=== PATIENT | female | born 1960 | race Caucasian/White ===

== ENCOUNTER 2019-09-07 06:09 | Outpatient (RCR) | payer MEDICAID, SELFPAY | END 2019-09-19 00:01 | LOC: ONCMED 06:09 | PROVIDERS: Family Provider Physician Assistant Medical; Visit Provider Internal Medicine Medical Oncology | DX: C92.11 Chronic myeloid leukemia, BCR/ABL-positive, in remission (principal); Z23 Encounter for immunization; D51.8 Other vitamin B12 deficiency anemias ==

== ENCOUNTER 2019-10-05 06:56 | Outpatient (RCR) | payer MEDICAID, SELFPAY ==
[2019-10-05] MEDS: pantoprazole 40 mg SDV IV (14:08)
[2019-10-05] MEDS: cyanocobalamin 1,000 mcg/mL SDV 1000 MCG SUBCUT (14:10)
[2019-10-05] MEDS: sodium chloride 0.9% 1,000 ML 999 ML IV (14:56)
== END 2019-10-20 23:59 | disposition home or self-care (01) ==
LOC: ONCMED 06:56
PROVIDERS: Family Provider Physician Assistant Medical; PCP Physician Assistant Medical; Visit Provider Internal Medicine Medical Oncology
DX: C92.11 Chronic myeloid leukemia, BCR/ABL-positive, in remission (principal); E86.0 Dehydration; K21.9 Gastro-esophageal reflux disease without esophagitis; R11.0 Nausea
CPT/HCPCS: 96361; 96365; 96367; 96372; 96375; C9113; J1100; J2550; J3420; J7030

== ENCOUNTER 2019-11-02 06:05 | Outpatient (RCR) | payer MEDICAID, SELFPAY ==
[2019-11-02] MEDS: sodium chloride 0.9% 1,000 ML 999 ML IV (08:57)
[2019-11-02] MEDS: pantoprazole 40 mg SDV IV (08:58)
[2019-11-02] MEDS: cyanocobalamin 1,000 mcg/mL SDV 1000 MCG SUBCUT (09:01)
[2019-11-02 09:22] LABS: Basophils % 0.5 %; Eosinophils # 0.1 10^3/uL (0.0-0.8); Eosinophils % 2.6 %; Hematocrit 35.7 % (37.0-47.0); Hemoglobin 11.7 g/dL (11.5-15.3); Lymphocytes # 1.2 10^3/uL (0.8-4.8); Lymphocytes % 28.9 %; Mean Corpuscular HGB Conc 32.8 g/dL (30.0-36.0); Mean Corpuscular Hemoglobin 30.3 pg (28.0-34.0); Mean Corpuscular Volume 92.5 fL (81-99); Mean Platelet Volume 9.8 fL (7.4-10.4); Monocytes # 0.3 10^3/uL (0.2-0.9); Monocytes % 6.2 %; Neutrophils # 2.6 10^3/uL (1.8-7.7); Neutrophils % 61.6 %; Nucleated Red Blood Cells % 0 %; Platelet Count 175 10^3/cmm (130-400); Red Blood Count 3.86 10^6/uL (4.1-5.3); Red Cell Distribution Width 12.4 % (12.1-15.1); White Blood Count 4.2 10^3/uL (4.0-10.0)
[2019-11-02 09:36] LABS: Alanine Aminotransferase 8 U/L (0-33); Albumin Level 4.3 g/dL (3.5-5.2); Alkaline Phosphatase 56 IU/L (35-105); Anion Gap 12.9 (5-19); Aspartate Amino Transferase 17 U/L (0-32); Blood Urea Nitrogen 9 mg/dL (6-20); Calcium 9.4 mg/dL (8.5-10.5); Carbon Dioxide 28 mmol/L (22-29); Chloride 104 mmol/L (98-107); Globulin 2.3 g/dL (1.3-4.6); Glomerular Filtration Rate 85.6 mL/min (90-130); Glucose 87 mg/dL (65-115); Lactate Dehydrogenase 140 U/L (135-214); Potassium 3.9 mmol/L (3.5-5.1); Sodium 141 mmol/L (136-145); Total Bilirubin 0.2 mg/dL (0.15-1.2); Total Protein 6.6 g/dL (6.6-8.7)
--- NOTE | 2019-11-02 21:07 | ONC FU_ITS ---
Dr. Gray Patient Follow-Up Note Patient: Alysa Acosta Unit #: [id number]: 1960 Dicatated By: Valente Gray M.D.Date of Visit:Nov 02, 2019 Onc Med Follow-up/Prog Note Chief Complaint: Chronic myeloid leukemia. History of Present Illness: This is a 59 year-old woman with [place] chromosome positive chronic myeloid leukemia. The leukemia was initially diagnosed in February of 2004. She had a good response to treatment with imatinib, but she did have documented relapse by bone marrow biopsy in October of 2008. She had poor tolerance for subsequent treatment with both dasatinib and nilotinib. Her repeat bone marrow aspiration/biopsy in October 2010 showed 100% cellularity, and her chromosome analysis was positive for the 9;22 translocation in all cells examined. She then began treatment with ponatinib on a clinical trial through [facility]. She had a very good clinical response, and she did seem to tolerate it well. However, in April 2014 she underwent placement of Port-A-Cath venous access device, and the procedure was complicated by a small pneumothorax. Her evaluation at that time also included CT pulmonary angiogram. It showed a left lower lobe lateral distal segmental pulmonary embolus. At that point she was admitted to the hospital on observation. She started anticoagulation with Lovenox and she stopped the ponatinib. Her subsequent clinical course was complicated by an acute drop in her hemoglobin with associated hypotension. She did require a transfusion of packed red blood cells. She was found to have a heme positive stool, and she was taken off anticoagulation. She underwent upper GI endoscopy and colonoscopy in August 2014. The upper endoscopy did show multiple ulcers in the antrum. These were not bleeding. She had been taking 150 mg of ranitidine twice daily, and at that point she started taking Protonix. She had a repeat upper GI endoscopy on 12/04/14. The only finding was some mild nonerosive gastritis in the antrum. There was no bleeding noted. Subsequent to that procedure she did restart anticoagulation with apixaban at 5 mg twice a day, and following her office visit on 12/19/14 she also restarted ponatinib at 30 mg daily. During followup there was no documented progression of her leukemia. Her quantitative PCR for BCR/abl remained undetectable or detectable at a very low level. In March 2016 she had presented to the emergency room with abdominal pain and vomiting. CT abdomen/pelvis showed distended fluid-filled loop of bowel in the right lower quadrant suspicious for volvulus, closed-loop obstruction, adhesions, or internal hernia. She was admitted to the hospital, but managed conservatively, and she did get better clinically after she was given laxatives and had multiple bowel movements. She continued treatment with ponatinib. She had subsequently continued to have ongoing problems with nausea/vomiting. She has had associated emergency room visits on 08/19/2016, on 10/24/2016, and on 11/18/2016. Repeat CT abdomen/pelvis in October 2016 showed evidence of mild jejunitis. 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 I did review that study with the radiologist, and that finding had been present on numerous prior studies. As of her follow-up visit in November 2016 her BCR/abl remained undetectable. On 02/03/2017 she presented to the emergency room again with sharp pain in the left side of her chest which was worse with deep breathing. The pain did radiate through to the back. She also was having significant abdominal pain. CT pulmonary angiogram at that time showed no evidence of pulmonary embolism. 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 There was post stenotic dilatation noted. She underwent further evaluation for the celiac artery stenosis in [place], and she then underwent surgery at [facility] on 05/26/2017. She then continued treatment with ponatinib 30 mg daily and she continued anticoagulation with apixaban 5 mg twice a day. She has significant underlying medical problems including severe degenerative disease of the spine with chronic neck and back pain. The problem has been further aggravated by chronic, intractable migraine headaches. She also has a component of generalized pain which is felt to be consistent with fibromyalgia. She has chronic anxiety/depression. She also was found to have B12 deficiency, for which she has remained on B12 replacement. She does not smoke or drink alcohol. INTERIM HISTORY: As of her visit on 08/10/2019 her quantitative PCR for BCR/abl remained undetectable. She continued treatment with ponatinib 30 mg daily. She is seen for a scheduled visit. She has multiple complaints. Her energy is very low. She says she feels drained. She has not had much activity. ECOG score is 2. She says her appetite is not good and she has not been eating that much, but she has gained weight. She has not had fever. She has a lot of hot flashes and sweating. Her main complaint today is that she has been having severe bone pain in her thighs. The pain feels like someone trying to saw her bone in half, and it comes in episodes during the night. She says it can wake her up from a deep sleep. She says it is not like a charley horse. She also says that she can hardly walk when she first gets up in the morning. She also continues to have pain in her lower back and in her neck. Her headaches have not been as bad. She does not have any focal neurologic symptoms. She continues to have some acid reflux, and she has nausea/vomiting at least 2 or 3 times a week. She does tend to feel a lot better after her IV hydration. Medications: Acyclovir 1 (200 mg) Capsule Oral b.i.d., Caxjaulckh-VOGS-Yjqkcqrs 1 (50-325-40 mg) Tablet Oral four times a day, Diazepam 1 (5 mg) Tablet Oral at bedtime, Eliquis 1 (5 mg) Tablet Oral b.i.d., EQL Senna Laxative Tablet Oral t.i.d. PRN, Gabapentin (300 mg) Capsule Oral Take as Directed, HYDROmorphone HCl 1 Tablet (of 4 mg) Oral four times a day PRN, Iclusig 1 (15 mg) Tablet Oral daily, Levothyroxine Sodium 1 (50 mcg) Tablet Oral daily, Magnesium Oxide 1 (400 mg) Capsule Oral daily, Montelukast Sodium 1 (10 mg) Tablet Oral daily, Pantoprazole Sodium 1 (40 mg) Tablet, enteric coated Oral b.i.d., Potassium Chloride 1 (20 meq) Tablet, controlled release Oral b.i.d., Promethazine HCl 1 (25 mg) Tablet Oral four times a day, Requip 1 (1 mg) Tablet Oral b.i.d., Sucralfate 1 (1 G) Tablet Oral four times a day, Venlafaxine HCl 1 (150 mg) Tablet Oral daily Allergies: Codeine Sulfate, elavil, Latex Exam Gloves, Morphine Sulfate, Penicillin V Potassium, and ZyPREXA. Review of Systems: Constitutional - Her energy is low and she feels drained. She does not do much at home. Her appetite is good and her weight is up 10 pounds since her last visit. No fever or chills. She has hot flashes and sweating. ECOG score is 2, ENMT - She has sinus congestion/drainage. She has sores under her dentures. No sore throat or difficulty swallowing, Hematologic/Lymphatic - She bruises easily, Respiratory - No shortness of breath. No cough. No pleuritic pain or hemoptysis, Cardiovascular - She has sharp pains in the left side and center of her chest, mainly at night. No palpitations, Gastrointestinal - She has nausea and vomiting at least 2-3 times a week. She has acid reflux. She has had diarrhea the last 3 days. She has cut down on her stool softeners. No blood in the stool or black stools, Genitourinary (F) - No dysuria or hematuria. No urinary frequency. No urgency or incontinence, Musculoskeletal - She has pain in her lower back and she has been having episodes of severe bone pain in her thights at night. She can hardly walk when she first gets up in the morning. She also has pain in her neck, Integumentary - No skin complications, Neurologic - Her headaches are not as bad as they used to be. She gets dizzy and light-headed at times. No numbness/paresthesias or other focal neurologic symptoms, Psychiatric - She has anxiety and depression. She is having difficulty sleeping. Vital Signs: Performed on Nov 02, 2019 08:54 Height - 63.00 in Weight - 121.4 lbs (HIGH) BSA - 1.56 sq.m BMI - 21.51 Temperature - 98.1 F (LOW) Pulse - 64 /min Respiration - 16 /min BP - 108/75 mm(hg) O2 Sat - 98 % Pain - 10 Fatigue - 10 Physical Examination: Constitutional - She appears somewhat weak generally, but not acutely ill, Eyes - Sclerae nonicteric. Conjunctivae clear, ENMT - Her mouth is dry. There are no lesions noted in the oral cavity, Hematologic/Lymphatic - No cervical, clavicular, or axillary adenopathy, Respiratory - Lungs are clear with good air movement bilaterally, Cardiovascular - Heart rhythm is regular. There is no murmur, gallop, or rub noted, Abdomen - Soft. There is tenderness in the epigastric area. Liver and spleen are not enlarged. There is no abdominal mass or ascites noted. There is no inguinal adenopathy, Extremities - No edema, Neurologic - No focal neurologic deficits noted. Lab/Imaging: Test performed on Nov 02, 2019 08:56 LDH (Total) 140 U/L Sodium 141 mmol/L Potassium 3.9 mmol/L Chloride 104 mmol/L CO2 28 mmol/L Anion Gap 12.9 BUN 9 mg/dL Creatinine 0.7 mg/dL Cr Clearance (Est) 75.23 mL/min eGFR 85.6 mL/min Glucose 87 mg/dL Calcium 9.4 mg/dL Protein, Total 6.6 g/dL Albumin 4.3 g/dL Globulin 2.3 g/dL Bilirubin, Total 0.2 mg/dL ALT (SGPT) 8 U/L AST (SGOT) 17 U/L Alkaline Phosphatase 56 IU/L WBC 4.2 10 3/uL RBC 3.86 10 6/uL HGB 11.7 g/dL HCT 35.7 % MCV 92.5 fL MCH 30.3 pg MCHC 32.8 g/dL RDW 12.4 % Platelet Count 175 10 3/cmm MPV 9.8 fL Neutrophils 2.6 10 3/uL Lymphocytes 1.2 10 3/uL Monocytes 0.3 10 3/uL Eosinophils 0.1 10 3/uL Basophils 0.0 10 3/uL Neutrophil % 61.6 % Lymphocyte % 28.9 % Monocyte % 6.2 % Eosinophil % 2.6 % Basophils % 0.5 % Impression: 1. Patient has a [place] chromosome positive chronic myeloid leukemia initially diagnosed in February 2004. She had progressed following initial response to imatinib. She then failed or was intolerant to subsequent treatment with nilotinib and desatinib. 2. In December 2010 she began treatment with ponatinib on a clincal trial thru [facility]. She responded well, and her disease was felt to be in remission. However, the ponatinib was stopped in April 2015 when she was found on CT pulmonary angiogram to have a left lower lobe lateral distal segmental pulmonary embolus. She initially was on anticoagulation with Lovenox, but it was stopped because of an episode of acute anemia due to GI blood loss. 3. She ultimately was confirmed to have gastric ulcers by upper GI endoscopy in August 2014. She was treated with Protonix with documented healing of the ulcers by followup endoscopy in November 2014. At that point she restarted anticoagulation with apixaban and she subsequently restarted treatment with ponatinib at 30 mg daily. 4. Her management has been complicated by her pre-existing medical illnesses which include intractable migraine, severe degenerative disease of the cervical spine, and a generalized pain disorder which is felt to be consistent with fibromyalgia. 5. She has had recurrent episodes of vomiting/dehydration, which tend to be associated with headaches. 6. She had significant changes in her blood counts following an E. coli urinary tract infection in April 2015, but her quantitative BCR/abl studies remained low or undetectable, and her blood counts subsequently returned to within normal range. She continued treatment with ponatinib 30 mg daily, and she continued anticoagulation with apixaban. During followup she continued to have abdominal pain and nausea/vomiting. Her CT abdomen/pelvis on 10/24/2016 showed evidence of 70% stenosis in the origin of the celiac access. The clinical significance of that finding was uncertain, as it had been present on numerous prior studies. She then presented to the emergency room again on 02/03/2017 with pleuritic chest pain and abdominal pain. CT pulmonary and grams showed no evidence of pulmonary embolism. The stenosis at the origin of the celiac axis at that point was estimated at 95%. She underwent surgery for the celiac artery stenosis at [facility] in [place] on 05/26/2017. She had gradual recovery following that procedure. She has since then had ongoing problems with fatigue, generalized musculoskeletal pain, and abdominal pain with intermittent nausea/vomiting. As a specific cause has not been determined, she has continued symptomatic management for those issues. She seemed to tolerate the ponatinib well with no evidence of recurrence/relapse of the CML. As of her visit in July 2019 her quantitative PCR for BCR/abl remained undetectable. The current study is pending, but her blood counts appear stable. She continues to have severe fatigue and generalized musculoskeletal pain, and she continues to have episodes of nausea/vomiting at least 2 to 3 days/week. She comes in now with a new complaint of episodes of severe bone pain in her thighs which occur intermittently during the night. The cause is uncertain. Plan: She will be given IV hydration and IV antiemetics today, and those can be continued on a monthly basis, as needed. She will continue her monthly B12 injections. She will continue treatment with ponatinib. However, as she has been on long-term remission, now with at least 5 years of uninterrupted therapy, I will try decreasing the dosage to 15 mg daily. She continues anticoagulation with apixaban. I will see her again in 3 months, or sooner as needed. In the meantime, I also will have her try increasing the bedtime dosage of gabapentin to 600 mg. Signed By: Valente Gray M.D. <<Signature on File>>
[2019-11-06 17:35] LABS: P190 BCR ALB1 Not Detected; P210 BCR ALB1 Not Detected; Prior Results See Report
== END 2019-11-18 23:59 | disposition home or self-care (01) ==
LOC: ONCMED 06:05
PROVIDERS: Family Provider Physician Assistant Medical; PCP Physician Assistant Medical; Visit Provider Internal Medicine Medical Oncology
DX: C92.10 Chronic myeloid leukemia, BCR/ABL-positive, not having achieved remission (principal); F41.8 Other specified anxiety disorders; E53.8 Deficiency of other specified B group vitamins; K21.9 Gastro-esophageal reflux disease without esophagitis; G47.00 Insomnia, unspecified; M79.7 Fibromyalgia; R11.0 Nausea; Z79.891 Long term (current) use of opiate analgesic; Z79.899 Other long term (current) drug therapy
CPT/HCPCS: 80053; 81206; 83615; 85025; 96361; 96365; 96372; 96374; 99214; C9113; J1100; J2550; J3420; J7030

== ENCOUNTER 2019-11-29 06:14 | Outpatient (RCR) | payer MEDICAID, SELFPAY ==
[2019-11-29] MEDS: sodium chloride 0.9% 1,000 ML 999 ML IV (13:10)
[2019-11-29] MEDS: cyanocobalamin 1,000 mcg/mL SDV 1000 MCG SUBCUT (13:13)
[2019-11-29] MEDS: pantoprazole 40 mg SDV IV (13:14)
== END 2019-12-19 23:59 | disposition home or self-care (01) ==
LOC: ONCMED 06:14
PROVIDERS: Family Provider Physician Assistant Medical; PCP Physician Assistant Medical; Visit Provider Internal Medicine Medical Oncology
DX: C92.10 Chronic myeloid leukemia, BCR/ABL-positive, not having achieved remission (principal); E86.9 Volume depletion, unspecified; E53.8 Deficiency of other specified B group vitamins
CPT/HCPCS: 96361; 96365; 96367; 96372; 96375; C9113; J1100; J2550; J3420; J7030

== ENCOUNTER 2019-12-28 07:06 | Outpatient (RCR) | payer MEDICAID, SELFPAY ==
[2019-12-28] MEDS: cyanocobalamin 1,000 mcg/mL SDV 1000 MCG SUBCUT (17:09)
[2019-12-28] MEDS: pantoprazole 40 mg SDV IV (17:11)
== END 2020-01-18 23:59 | disposition home or self-care (01) ==
LOC: ONCMED 07:06
PROVIDERS: Family Provider Physician Assistant Medical; PCP Physician Assistant Medical; Visit Provider Internal Medicine Medical Oncology
DX: C92.11 Chronic myeloid leukemia, BCR/ABL-positive, in remission (principal); M79.7 Fibromyalgia; G43.019 Migraine without aura, intractable, without status migrainosus; F32.9 Major depressive disorder, single episode, unspecified; F41.9 Anxiety disorder, unspecified; D51.8 Other vitamin B12 deficiency anemias; K25.9 Gastric ulcer, unspecified as acute or chronic, without hemorrhage or perforation; Z79.899 Other long term (current) drug therapy; Z86.711 Personal history of pulmonary embolism; M47.812 Spondylosis without myelopathy or radiculopathy, cervical region; M50.20 Other cervical disc displacement, unspecified cervical region
CPT/HCPCS: 96365; 96368; 96372; 96375; C9113; J1100; J2550; J3420; J7030

== ENCOUNTER 2020-01-25 06:54 | Outpatient (RCR) | payer MEDICAID, SELFPAY ==
[2020-01-25] MEDS: pantoprazole 40 mg SDV IV (11:20)
[2020-01-25] MEDS: sodium chloride 0.9% (100 ml) 100 ML 300 ML (11:55)
[2020-01-25] MEDS: dexamethasone 10 mg/mL INJ IV (11:55)
[2020-01-25 12:10] LABS: Basophils % 0.5 %; Hematocrit 32.7 % (37.0-47.0); Hemoglobin 10.5 g/dL (11.5-15.3); Lymphocytes % 23.2 %; Mean Corpuscular HGB Conc 32.1 g/dL (30.0-36.0); Mean Corpuscular Volume 93.4 fL (81-99); Mean Platelet Volume 10.9 fL (7.4-10.4); Monocytes # 0.3 10^3/uL (0.2-0.9); Monocytes % 7.3 %; Neutrophils # 2.8 10^3/uL (1.8-7.7); Neutrophils % 67.8 %; Nucleated Red Blood Cells % 0 %; Platelet Count 158 10^3/cmm (130-400); Red Cell Distribution Width 13.9 % (12.1-15.1); White Blood Count 4.1 10^3/uL (4.0-10.0)
[2020-01-25] MEDS: sodium chloride 0.9% 1,000 ML 999 ML IV (12:15)
[2020-01-25 12:35] LABS: Alanine Aminotransferase 9 U/L (0-33); Albumin Level 4.1 g/dL (3.5-5.2); Alkaline Phosphatase 51 IU/L (35-105); Anion Gap 12.9 (5-19); Aspartate Amino Transferase 20 U/L (0-32); Blood Urea Nitrogen 14 mg/dL (6-20); Carbon Dioxide 27 mmol/L (22-29); Chloride 104 mmol/L (98-107); Free T4 Free Thyroxine 1.37 ng/dL (0.82-1.77); Globulin 2.4 g/dL (1.3-4.6); Glomerular Filtration Rate 102.3 mL/min (90-130); Glucose 99 mg/dL (65-115); Lactate Dehydrogenase 190 U/L (135-214); Osmolality Calculated 286 mOsm/kg (285-295); Potassium 3.9 mmol/L (3.5-5.1); Sodium 140 mmol/L (136-145); Total Bilirubin 0.2 mg/dL (0.15-1.2); Total Protein 6.5 g/dL (6.6-8.7)
[2020-01-25] MEDS: cyanocobalamin 1,000 mcg/mL SDV 1000 MCG SUBCUT (13:50)
--- NOTE | 2020-01-28 13:45 | ONC FU_ITS ---
Dr. Gray Patient Follow-Up Note Patient: Alysa Acosta Unit #: [id number]: [id number] Dicatated By: Valente Gray M.D.Date of Visit:January 25, 2020 Onc Med Follow-up/Prog Note Chief Complaint: Chronic myeloid leukemia. History of Present Illness: This is a 59 year-old woman with [place] chromosome positive chronic myeloid leukemia. The leukemia was initially diagnosed in February of 2004. She had a good response to treatment with imatinib, but she did have documented relapse by bone marrow biopsy in October of 2008. She had poor tolerance for subsequent treatment with both dasatinib and nilotinib. Her repeat bone marrow aspiration/biopsy in October 2010 showed 100% cellularity, and her chromosome analysis was positive for the 9;22 translocation in all cells examined. She then began treatment with ponatinib on a clinical trial through [facility]. She had a very good clinical response, and she did seem to tolerate it well. However, in April 2014 she underwent placement of Port-A-Cath venous access device, and the procedure was complicated by a small pneumothorax. Her evaluation at that time also included CT pulmonary angiogram. It showed a left lower lobe lateral distal segmental pulmonary embolus. At that point she was admitted to the hospital on observation. She started anticoagulation with Lovenox and she stopped the ponatinib. Her subsequent clinical course was complicated by an acute drop in her hemoglobin with associated hypotension. She did require a transfusion of packed red blood cells. She was found to have a heme positive stool, and she was taken off anticoagulation. She underwent upper GI endoscopy and colonoscopy in August 2014. The upper endoscopy did show multiple ulcers in the antrum. These were not bleeding. She had been taking 150 mg of ranitidine twice daily, and at that point she started taking Protonix. She had a repeat upper GI endoscopy on 12/04/14. The only finding was some mild nonerosive gastritis in the antrum. There was no bleeding noted. Subsequent to that procedure she did restart anticoagulation with apixaban at 5 mg twice a day, and following her office visit on 12/19/14 she also restarted ponatinib at 30 mg daily. During followup there was no documented progression of her leukemia. Her quantitative PCR for BCR/abl remained undetectable or detectable at a very low level. In March 2016 she had presented to the emergency room with abdominal pain and vomiting. CT abdomen/pelvis showed distended fluid-filled loop of bowel in the right lower quadrant suspicious for volvulus, closed-loop obstruction, adhesions, or internal hernia. She was admitted to the hospital, but managed conservatively, and she did get better clinically after she was given laxatives and had multiple bowel movements. She continued treatment with ponatinib. She had subsequently continued to have ongoing problems with nausea/vomiting. She has had associated emergency room visits on 08/19/2016, on 10/24/2016, and on 11/18/2016. Repeat CT abdomen/pelvis in October 2016 showed evidence of mild jejunitis. 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 I did review that study with the radiologist, and that finding had been present on numerous prior studies. As of her follow-up visit in November 2016 her BCR/abl remained undetectable. On 02/03/2017 she presented to the emergency room again with sharp pain in the left side of her chest which was worse with deep breathing. The pain did radiate through to the back. She also was having significant abdominal pain. CT pulmonary angiogram at that time showed no evidence of pulmonary embolism. 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 There was post stenotic dilatation noted. She underwent further evaluation for the celiac artery stenosis in [place], and she then underwent surgery at [facility] on 05/26/2017. She then continued treatment with ponatinib 30 mg daily and she continued anticoagulation with apixaban 5 mg twice a day. She has significant underlying medical problems including severe degenerative disease of the spine with chronic neck and back pain. The problem has been further aggravated by chronic, intractable migraine headaches. She also has a component of generalized pain which is felt to be consistent with fibromyalgia. She has chronic anxiety/depression. She also was found to have B12 deficiency, for which she has remained on B12 replacement. She does not smoke or drink alcohol. INTERIM HISTORY: As of 11/02/2019 her quantitative PCR for BCR/abl remained undetectable. She continued treatment with ponatinib 30 mg daily. She is seen for a scheduled visit. She says her energy has been a little better lately and her appetite also is getting better. Her weight is stable. She has been able to do some light work at home. ECOG score is 1. She has not had fever. She does have hot flashes and sweating, both during the daytime and at night. She says she still is not sleeping real good. She complains that her sinuses are killing her. She has no shortness of breath, cough, or chest pain. She has ongoing problems with nausea and she has vomiting at least twice a week. She continues to have some acid reflux. Recently she has been having some sharp pain in her right lower quadrant area. Bowel and bladder function have been okay. She has pain in her neck and in her lower back, which is chronic. She also has pain in both legs. Her headaches, though, have been better lately. She has no focal neurologic symptoms. She does complain that her stress level is very high. Medications: Acyclovir 1 (200 mg) Capsule Oral b.i.d., Coeqikprnx-NMUX-Helloezz 1 (50-325-40 mg) Tablet Oral four times a day, Diazepam 1 (5 mg) Tablet Oral at bedtime, Eliquis 1 (5 mg) Tablet Oral b.i.d., EQL Senna Laxative Tablet Oral t.i.d. PRN, Gabapentin (300 mg) Capsule Oral Take as Directed, HYDROmorphone HCl 1 Tablet (of 4 mg) Oral four times a day PRN, Iclusig 1 (15 mg) Tablet Oral daily, Levothyroxine Sodium 1 (50 mcg) Tablet Oral daily, Magnesium Oxide 1 (400 mg) Capsule Oral daily, Montelukast Sodium 1 (10 mg) Tablet Oral daily, Pantoprazole Sodium 1 (40 mg) Tablet, enteric coated Oral b.i.d., Potassium Chloride 1 (20 meq) Tablet, controlled release Oral b.i.d., Promethazine HCl 1 (25 mg) Tablet Oral four times a day, Requip 1 (1 mg) Tablet Oral b.i.d., Sucralfate 1 (1 G) Tablet Oral four times a day, Venlafaxine HCl 1 (150 mg) Tablet Oral daily Allergies: Codeine Sulfate, elavil, Latex Exam Gloves, Morphine Sulfate, Penicillin V Potassium, and ZyPREXA. Review of Systems: Constitutional - Her energy level has been a little better latele. She has been able to do some light work. Her appetite is improving and her weight is stable. No fever or chills. She is having persistent hot flashes with sweating both day and and at night. Her ECOG score is 1, ENMT - She has seasonal allergies. She has persistant drainage. No mouth sores. No sore throat or difficulty swallowing, Hematologic/Lymphatic - No abnormal bruising or bleeding, Respiratory - No shortness of breath. No cough. No pleuritic pain or hemoptysis, Cardiovascular - No angina pain. No palpitations, Gastrointestinal - She is having nausea with occasional episodes of vomiting. No heartburn or acid reflux. No diarrhea or constipation. No blood in the stool or black stools, Genitourinary (F) - No dysuria or hematuria. No urinary frequency. No urgency or incontinence, Musculoskeletal - She has pain in her neck and in her lower back and legs, Integumentary - No skin complications, Neurologic - Her headaches have not been as bad. No dizziness. No numbness/paresthesias or other focal neurologic symptoms, Psychiatric - She has chronic anxiety/depression. She does not sleep well. Vital Signs: Performed on January 25, 2020 12:59 Height - 63.00 in Weight - 120.2 lbs (LOW) BSA - 1.56 sq.m BMI - 21.29 Temperature - 99.2 F (HIGH) Pulse - 86 /min Respiration - 22 /min BP - 124/77 mm(hg) O2 Sat - 97 % Pain - 6 Physical Examination: Constitutional - She does not appear acutely ill, Eyes - Sclerae nonicteric. Conjunctivae clear, ENMT - Her mouth is very dry. There are no lesions noted in the oral cavity, Hematologic/Lymphatic - No cervical, clavicular, or axillary adenopathy, Respiratory - Lungs are clear with good air movement bilaterally, Cardiovascular - Heart rhythm is regular. There is no murmur, gallop, or rub noted, Abdomen - Soft. There is mild tenderness in the epigastric area. Liver and spleen are not enlarged. There is no abdominal mass or ascites noted. There is no inguinal adenopathy, Extremities - No edema, Neurologic - No focal neurologic deficits noted. Lab/Imaging: Test performed on January 25, 2020 11:10 LDH (Total) 190 U/L Sodium 140 mmol/L T4, Free 1.37 ng/dL TSH 1.30 uIU/mL Potassium 3.9 mmol/L Chloride 104 mmol/L CO2 27 mmol/L Anion Gap 12.9 BUN 14 mg/dL Creatinine 0.6 mg/dL Cr Clearance (Est) 86.90 mL/min eGFR 102.3 mL/min Glucose 99 mg/dL Calcium 9.0 mg/dL Protein, Total 6.5 g/dL Albumin 4.1 g/dL Globulin 2.4 g/dL Bilirubin, Total 0.2 mg/dL ALT (SGPT) 9 U/L AST (SGOT) 20 U/L Alkaline Phosphatase 51 IU/L WBC 4.1 10 3/uL RBC 3.50 10 6/uL HGB 10.5 g/dL HCT 32.7 % MCV 93.4 fL MCH 30.0 pg MCHC 32.1 g/dL RDW 13.9 % Platelet Count 158 10 3/cmm MPV 10.9 fL Neutrophils 2.8 10 3/uL Lymphocytes 1.0 10 3/uL Monocytes 0.3 10 3/uL Eosinophils 0.0 10 3/uL Basophils 0.0 10 3/uL Neutrophil % 67.8 % Lymphocyte % 23.2 % Monocyte % 7.3 % Eosinophil % 1.0 % Basophils % 0.5 % Impression: 1. Patient has a [place] chromosome positive chronic myeloid leukemia initially diagnosed in February 2004. She had progressed following initial response to imatinib. She then failed or was intolerant to subsequent treatment with nilotinib and desatinib. 2. In December 2010 she began treatment with ponatinib on a clincal trial thru [facility]. She responded well, and her disease was felt to be in remission. However, the ponatinib was stopped in April 2015 when she was found on CT pulmonary angiogram to have a left lower lobe lateral distal segmental pulmonary embolus. She initially was on anticoagulation with Lovenox, but it was stopped because of an episode of acute anemia due to GI blood loss. 3. She ultimately was confirmed to have gastric ulcers by upper GI endoscopy in August 2014. She was treated with Protonix with documented healing of the ulcers by followup endoscopy in November 2014. At that point she restarted anticoagulation with apixaban and she subsequently restarted treatment with ponatinib at 30 mg daily. 4. Her management has been complicated by her pre-existing medical illnesses which include intractable migraine, severe degenerative disease of the cervical spine, and a generalized pain disorder which is felt to be consistent with fibromyalgia. 5. She has had recurrent episodes of vomiting/dehydration, which tend to be associated with headaches. 6. She had significant changes in her blood counts following an E. coli urinary tract infection in April 2015, but her quantitative BCR/abl studies remained low or undetectable, and her blood counts subsequently returned to within normal range. She continued treatment with ponatinib 30 mg daily, and she continued anticoagulation with apixaban. During followup she continued to have abdominal pain and nausea/vomiting. Her CT abdomen/pelvis on 10/24/2016 showed evidence of 70% stenosis in the origin of the celiac access. The clinical significance of that finding was uncertain, as it had been present on numerous prior studies. She then presented to the emergency room again on 02/03/2017 with pleuritic chest pain and abdominal pain. CT pulmonary and grams showed no evidence of pulmonary embolism. The stenosis at the origin of the celiac axis at that point was estimated at 95%. She underwent surgery for the celiac artery stenosis at [facility] in [place] on 05/26/2017. She had gradual recovery following that procedure. She has since then had ongoing problems with fatigue, generalized musculoskeletal pain, and abdominal pain with intermittent nausea/vomiting. As a specific cause has not been determined, she has continued symptomatic management for those issues. She seemed to tolerate the ponatinib well with no evidence of recurrence/relapse of the CML. As of her visit in July 2019 her quantitative PCR for BCR/abl remained undetectable. The current study is pending, but her blood counts appear stable. She continues to have severe fatigue and generalized musculoskeletal pain, and she continues to have episodes of nausea/vomiting at least 2 to 3 days/week. She comes in now with a new complaint of episodes of severe bone pain in her thighs which occur intermittently during the night. The cause is uncertain. Plan: She continues ponatinib at 30 mg daily and she continues her monthly B12 injections. She will be given IV hydration and IV antiemetics today and again as needed. She continues anticoagulation with apixaban. I will see her again in 3 months, or sooner as needed. Signed By: Valente Gray M.D. <<Signature on File>>
[2020-01-30 15:27] LABS: P190 BCR ALB1 Not Detected; P210 BCR ALB1 Not Detected; Prior Results See Report
== END 2020-02-18 23:59 | disposition home or self-care (01) ==
LOC: ONCMED 06:54
PROVIDERS: PCP Physician Assistant Medical; Visit Provider Internal Medicine Medical Oncology
DX: C92.11 Chronic myeloid leukemia, BCR/ABL-positive, in remission (principal); G43.919 Migraine, unspecified, intractable, without status migrainosus; M50.30 Other cervical disc degeneration, unspecified cervical region; M79.7 Fibromyalgia; D51.9 Vitamin B12 deficiency anemia, unspecified; Z79.52 Long term (current) use of systemic steroids; Z79.899 Other long term (current) drug therapy
CPT/HCPCS: 80053; 81206; 83615; 84439; 84443; 85025; 96361; 96365; 96367; 96372; 96375; 99214; C9113; J1100; J2550; J3420; J7030

== ENCOUNTER 2020-02-22 06:15 | Outpatient (CLI) | payer MEDICAID, SELFPAY ==
[2020-02-22] MEDS: cyanocobalamin 1,000 mcg/mL SDV 1000 MCG SUBCUT (13:40)
[2020-02-22] MEDS: pantoprazole 40 mg SDV IVP (13:46)
[2020-02-22] MEDS: sodium chloride 0.9% 1,000 ML 999 ML IV (14:36)
== END 2020-02-22 06:16 | disposition home or self-care (01) ==
LOC: ONCMED 06:16
PROVIDERS: PCP Physician Assistant Medical; Visit Provider Internal Medicine Medical Oncology
DX: C92.11 Chronic myeloid leukemia, BCR/ABL-positive, in remission (principal); D51.9 Vitamin B12 deficiency anemia, unspecified; K21.9 Gastro-esophageal reflux disease without esophagitis; K25.9 Gastric ulcer, unspecified as acute or chronic, without hemorrhage or perforation; M79.7 Fibromyalgia; G43.019 Migraine without aura, intractable, without status migrainosus; F32.9 Major depressive disorder, single episode, unspecified; F41.9 Anxiety disorder, unspecified; Z79.899 Other long term (current) drug therapy
CPT/HCPCS: 96361; 96365; 96367; 96372; 96375; C9113; J1100; J2550; J3420; J7030

== ENCOUNTER 2020-03-21 12:32 | Outpatient (CLI) | payer MEDICAID, SELFPAY ==
[2020-03-21] MEDS: sodium chloride 0.9% 1,000 ML 999 ML IV (13:20)
[2020-03-21] MEDS: cyanocobalamin 1,000 mcg/mL SDV 1000 MCG SUBCUT (13:20)
[2020-03-21] MEDS: pantoprazole 40 mg SDV IVP (14:20)
== END 2020-03-21 12:33 | disposition home or self-care (01) ==
LOC: ONCMED 12:34
PROVIDERS: PCP Physician Assistant Medical; Visit Provider Internal Medicine Medical Oncology
DX: C92.11 Chronic myeloid leukemia, BCR/ABL-positive, in remission (principal); M47.812 Spondylosis without myelopathy or radiculopathy, cervical region; M50.20 Other cervical disc displacement, unspecified cervical region; M79.7 Fibromyalgia; G43.019 Migraine without aura, intractable, without status migrainosus; F32.9 Major depressive disorder, single episode, unspecified; F41.9 Anxiety disorder, unspecified; D51.9 Vitamin B12 deficiency anemia, unspecified; K21.9 Gastro-esophageal reflux disease without esophagitis; K25.9 Gastric ulcer, unspecified as acute or chronic, without hemorrhage or perforation
CPT/HCPCS: 96361; 96365; 96367; 96372; 96375; C9113; J1100; J2550; J3420; J7030

== ENCOUNTER 2020-04-08 13:02 | Outpatient (CLI) | payer MEDICAID, SELFPAY ==
[2020-04-08] MEDS: pantoprazole 40 mg SDV IV (13:32)
[2020-04-08] MEDS: sodium chloride 0.9% 1,000 ML 999 ML IV (14:07)
== END 2020-04-08 13:03 | disposition home or self-care (01) ==
LOC: ONCMED 13:08
PROVIDERS: PCP Physician Assistant Medical; Visit Provider Internal Medicine Medical Oncology
DX: C92.11 Chronic myeloid leukemia, BCR/ABL-positive, in remission (principal); D51.8 Other vitamin B12 deficiency anemias; Z86.711 Personal history of pulmonary embolism; M47.812 Spondylosis without myelopathy or radiculopathy, cervical region; M50.20 Other cervical disc displacement, unspecified cervical region; M79.7 Fibromyalgia; G43.019 Migraine without aura, intractable, without status migrainosus; F32.9 Major depressive disorder, single episode, unspecified; F41.9 Anxiety disorder, unspecified; K25.9 Gastric ulcer, unspecified as acute or chronic, without hemorrhage or perforation
CPT/HCPCS: 96361; 96365; 96367; 96375; C9113; J1100; J2550; J7030

== ENCOUNTER 2020-04-22 12:03 | Outpatient (CLI) | payer MEDICAID, SELFPAY ==
[2020-04-22] MEDS: pantoprazole 40 mg SDV IV (12:50)
[2020-04-22] MEDS: cyanocobalamin 1,000 mcg/mL SDV 1000 MCG IM (12:53)
[2020-04-22 13:05] LABS: Add Urine Microscopic? NO
[2020-04-22 13:23] LABS: Eosinophils # 0.1 10^3/uL (0.0-0.8); Eosinophils % 1.7 %; Hematocrit 35.5 % (37.0-47.0); Hemoglobin 11.2 g/dL (11.5-15.3); Lymphocytes # 1.1 10^3/uL (0.8-4.8); Mean Corpuscular HGB Conc 31.5 g/dL (30.0-36.0); Mean Corpuscular Hemoglobin 29.4 pg (28.0-34.0); Mean Corpuscular Volume 93.2 fL (81-99); Mean Platelet Volume 10.3 fL (7.4-10.4); Monocytes # 0.2 10^3/uL (0.2-0.9); Monocytes % 3.9 %; Neutrophils # 2.69 10^3/uL (1.8-7.7); Neutrophils % 66.2 %; Nucleated Red Blood Cells % 0 %; Platelet Count 165 10^3/cmm (130-400); Red Blood Count 3.81 10^6/uL (4.1-5.3); Red Cell Distribution Width 12.6 % (12.1-15.1); White Blood Count 4.1 10^3/uL (4.0-10.0)
[2020-04-22 13:32] LABS: Urine Appearance Clear (CLEAR); Urine Color Yellow (Yellow); pH Urine 8 (5-7)
[2020-04-22 13:33] LABS: Bilirubin Urine Neg (NEGATIVE); Blood Urine Neg (Negative); Glucose Urine UA Norm (Normal); Ketones Urine Negative (Negative); Leukocyte Esterase Urine Negative (Negative); Nitrate Urine Negative (Negative); Protein Urine Neg (Negative); Sulfosalicylic Acid Urine Negative (Negative); Urobilinogen Urine Norm (Negative)
[2020-04-22 13:48] LABS: Alanine Aminotransferase 8 U/L (0-33); Albumin Level 4.3 g/dL (3.5-5.2); Alkaline Phosphatase 55 IU/L (35-105); Anion Gap 12.1 (5-19); Aspartate Amino Transferase 18 U/L (0-32); Blood Urea Nitrogen 8 mg/dL (8-23); Calcium 8.8 mg/dL (8.5-10.5); Carbon Dioxide 28 mmol/L (22-29); Chloride 100 mmol/L (98-107); Globulin 2.4 g/dL (1.3-4.6); Glomerular Filtration Rate 85.4 mL/min (90-130); Glucose 100 mg/dL (65-115); Lactate Dehydrogenase 143 U/L (135-214); Osmolality Calculated 278 mOsm/kg (285-295); Potassium 4.1 mmol/L (3.5-5.1); Sodium 136 mmol/L (136-145); Total Bilirubin 0.2 mg/dL (0.15-1.2); Total Protein 6.7 g/dL (6.6-8.7)
[2020-04-22] MEDS: sodium chloride 0.9% 1,000 ML 999 ML IV (14:04)
--- NOTE | 2020-04-26 18:55 | ONC FU_ITS ---
Dr. Gray Patient Follow-Up Note Patient: Alysa Acosta Unit #: [id number]: [id number] Dicatated By: Valente Gray M.D.Date of Visit:Apr 22, 2020 Onc Med Follow-up/Prog Note Chief Complaint: Chronic myeloid leukemia. History of Present Illness: This is a 60 year-old woman with [place] chromosome positive chronic myeloid leukemia. The leukemia was initially diagnosed in February of 2004. She had a good response to treatment with imatinib, but she did have documented relapse by bone marrow biopsy in October of 2008. She had poor tolerance for subsequent treatment with both dasatinib and nilotinib. Her repeat bone marrow aspiration/biopsy in October 2010 showed 100% cellularity, and her chromosome analysis was positive for the 9;22 translocation in all cells examined. She then began treatment with ponatinib on a clinical trial through [facility]. She had a very good clinical response, and she did seem to tolerate it well. However, in April 2014 she underwent placement of Port-A-Cath venous access device, and the procedure was complicated by a small pneumothorax. Her evaluation at that time also included CT pulmonary angiogram. It showed a left lower lobe lateral distal segmental pulmonary embolus. At that point she was admitted to the hospital on observation. She started anticoagulation with Lovenox and she stopped the ponatinib. Her subsequent clinical course was complicated by an acute drop in her hemoglobin with associated hypotension. She did require a transfusion of packed red blood cells. She was found to have a heme positive stool, and she was taken off anticoagulation. She underwent upper GI endoscopy and colonoscopy in August 2014. The upper endoscopy did show multiple ulcers in the antrum. These were not bleeding. She had been taking 150 mg of ranitidine twice daily, and at that point she started taking Protonix. She had a repeat upper GI endoscopy on 12/04/14. The only finding was some mild nonerosive gastritis in the antrum. There was no bleeding noted. Subsequent to that procedure she did restart anticoagulation with apixaban at 5 mg twice a day, and following her office visit on 12/19/14 she also restarted ponatinib at 30 mg daily. During followup there was no documented progression of her leukemia. Her quantitative PCR for BCR/abl remained undetectable or detectable at a very low level. In March 2016 she had presented to the emergency room with abdominal pain and vomiting. CT abdomen/pelvis showed distended fluid-filled loop of bowel in the right lower quadrant suspicious for volvulus, closed-loop obstruction, adhesions, or internal hernia. She was admitted to the hospital, but managed conservatively, and she did get better clinically after she was given laxatives and had multiple bowel movements. She continued treatment with ponatinib. She had subsequently continued to have ongoing problems with nausea/vomiting. She has had associated emergency room visits on 08/19/2016, on 10/24/2016, and on 11/18/2016. Repeat CT abdomen/pelvis in October 2016 showed evidence of mild jejunitis. 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 I did review that study with the radiologist, and that finding had been present on numerous prior studies. As of her follow-up visit in November 2016 her BCR/abl remained undetectable. On 02/03/2017 she presented to the emergency room again with sharp pain in the left side of her chest which was worse with deep breathing. The pain did radiate through to the back. She also was having significant abdominal pain. CT pulmonary angiogram at that time showed no evidence of pulmonary embolism. 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 There was post stenotic dilatation noted. She underwent further evaluation for the celiac artery stenosis in [place], and she then underwent surgery at [facility] on 05/26/2017. She then continued treatment with ponatinib 30 mg daily and she continued anticoagulation with apixaban 5 mg twice a day. She has significant underlying medical problems including severe degenerative disease of the spine with chronic neck and back pain. The problem has been further aggravated by chronic, intractable migraine headaches. She also has a component of generalized pain which is felt to be consistent with fibromyalgia. She has chronic anxiety/depression. She also was found to have B12 deficiency, for which she has remained on B12 replacement. She does not smoke or drink alcohol. INTERIM HISTORY: As of 01/25/2020 her quantitative PCR for BCR/abl remained undetectable. She continued treatment with ponatinib 30 mg daily. She is seen for a scheduled visit. She has not been feeling very good. She says she had been doing really well, but lately her energy has been down and her appetite has been poor. She has lost weight. She does not have fever. She does have hot flashes. She thinks she has a bladder infection because she has been having pain in her lower abdominal area and lower back, and she says her urine feels super hot. She has had nausea, no vomiting. Bowel function has been okay. She has no shortness of breath, cough, or chest pain. She has chronic pain in her lower back and legs. Her headaches have not been bothering her for a while. She has no focal neurologic symptoms. Medications: Acyclovir 1 (200 mg) Capsule Oral b.i.d., [id number] 1 (50-325-40 mg) Tablet Oral four times a day, Diazepam 1 (5 mg) Tablet Oral at bedtime, Eliquis 1 (5 mg) Tablet Oral b.i.d., EQL Senna Laxative Tablet Oral t.i.d. PRN, Gabapentin (300 mg) Capsule Oral Take as Directed, HYDROmorphone HCl 1 Tablet (of 4 mg) Oral four times a day PRN, Iclusig 1 (15 mg) Tablet Oral daily, Levothyroxine Sodium 1 (50 mcg) Tablet Oral daily, Magnesium Oxide 1 (400 mg) Capsule Oral daily, Montelukast Sodium 1 (10 mg) Tablet Oral daily, Pantoprazole Sodium 1 (40 mg) Tablet, enteric coated Oral b.i.d., PONATinib HCl 15 mg (of 15 mg) Tablet Oral daily, Potassium Chloride 1 (20 meq) Tablet, controlled release Oral b.i.d., Promethazine HCl 1 (25 mg) Tablet Oral four times a day, Requip 1 (1 mg) Tablet Oral b.i.d., Sucralfate 1 (1 G) Tablet Oral four times a day, Venlafaxine HCl 1 (150 mg) Tablet Oral daily Allergies: Codeine Sulfate, elavil, Latex Exam Gloves, Morphine Sulfate, Penicillin V Potassium, and ZyPREXA. Review of Systems: Constitutional - She has not been feeling good. Her energy was very good, but recently it has declined. She is able to do light work. Her appetite is poor and her weight is down about 6 pounds from last visit. No fever, night sweats, or hot flashes. ECOG score is 1, ENMT - No sinus congestion/drainage. No mouth sores. No sore throat or difficulty swallowing, Hematologic/Lymphatic - She has bruising, Respiratory - No shortness of breath. No cough. No pleuritic pain or hemoptysis, Cardiovascular - No angina pain. No palpitations, Gastrointestinal - She has had nausea. No recent vomiting. No heartburn or acid reflux. No diarrhea or constipation. No blood in the stool or black stools, Genitourinary (F) - She has pain in the lower abdomen, and she says her urine feels super hot. No hematuria. No urinary frequency. No urgency or incontinence, Musculoskeletal - She has pain in her lower back and legs, Integumentary - No skin complications, Neurologic - No headache or dizziness. No numbness or tingling. No other focal neurologic symptoms, Psychiatric - She has anxiety and depression. She does not sleep well. Vital Signs: Performed on Apr 22, 2020 13:48 Height - 63.00 in Weight - 114.4 lbs (LOW) BSA - 1.53 sq.m BMI - 20.27 Temperature - 97.7 F (LOW) Pulse - 77 /min Respiration - 18 /min BP - 106/70 mm(hg) O2 Sat - 97 % Pain - 10 Physical Examination: Constitutional - She appears somewhat weak generally, Eyes - Sclerae nonicteric. Conjunctivae clear, ENMT - Her mouth is dry. There are no lesions noted in the oral cavity, Hematologic/Lymphatic - No cervical, clavicular, or axillary adenopathy, Respiratory - Lungs are clear with good air movement bilaterally, Cardiovascular - Heart rhythm is regular. There is no murmur, gallop, or rub noted, Abdomen - Soft. There is mild tenderness in the upper and lower abdomen. Liver and spleen are not enlarged. There is no abdominal mass or ascites noted. There is no inguinal adenopathy, Extremities - No edema, Neurologic - No focal neurologic deficits noted. Lab/Imaging: Test performed on Apr 22, 2020 12:51 LDH (Total) 143 U/L Sodium 136 mmol/L Potassium 4.1 mmol/L Chloride 100 mmol/L CO2 28 mmol/L Anion Gap 12.1 BUN 8 mg/dL Creatinine 0.7 mg/dL Cr Clearance (Est) 70.0100 mL/min eGFR 85.4 mL/min Glucose 100 mg/dL Calcium 8.8 mg/dL Protein, Total 6.7 g/dL Albumin 4.3 g/dL Globulin 2.4 g/dL Bilirubin, Total 0.2 mg/dL ALT (SGPT) 8 U/L AST (SGOT) 18 U/L Alkaline Phosphatase 55 IU/L WBC 4.1 10 3/uL RBC 3.81 10 6/uL HGB 11.2 g/dL HCT 35.5 % MCV 93.2 fL MCH 29.4 pg MCHC 31.5 g/dL RDW 12.6 % Platelet Count 165 10 3/cmm MPV 10.3 fL Neutrophils 2.69 10 3/uL Lymphocytes 1.1 10 3/uL Monocytes 0.2 10 3/uL Eosinophils 0.1 10 3/uL Basophils 0.0 10 3/uL Neutrophil % 66.2 % Lymphocyte % 27.0 % Monocyte % 3.9 % Eosinophil % 1.7 % Basophils % 1.0 % NRBC % 0 % Impression: 1. Patient has a [place] chromosome positive chronic myeloid leukemia initially diagnosed in February 2004. She had progressed following initial response to imatinib. She then failed or was intolerant to subsequent treatment with nilotinib and desatinib. 2. In December 2010 she began treatment with ponatinib on a clincal trial thru [facility]. She responded well, and her disease was felt to be in remission. However, the ponatinib was stopped in April 2015 when she was found on CT pulmonary angiogram to have a left lower lobe lateral distal segmental pulmonary embolus. She initially was on anticoagulation with Lovenox, but it was stopped because of an episode of acute anemia due to GI blood loss. 3. She ultimately was confirmed to have gastric ulcers by upper GI endoscopy in August 2014. She was treated with Protonix with documented healing of the ulcers by followup endoscopy in November 2014. At that point she restarted anticoagulation with apixaban and she subsequently restarted treatment with ponatinib at 30 mg daily. 4. Her management has been complicated by her pre-existing medical illnesses which include intractable migraine, severe degenerative disease of the cervical spine, and a generalized pain disorder which is felt to be consistent with fibromyalgia. 5. She has had recurrent episodes of vomiting/dehydration, which tend to be associated with headaches. 6. She had significant changes in her blood counts following an E. coli urinary tract infection in April 2015, but her quantitative BCR/abl studies remained low or undetectable, and her blood counts subsequently returned to within normal range. She continued treatment with ponatinib 30 mg daily, and she continued anticoagulation with apixaban. During followup she continued to have abdominal pain and nausea/vomiting. Her CT abdomen/pelvis on 10/24/2016 showed evidence of 70% stenosis in the origin of the celiac access. The clinical significance of that finding was uncertain, as it had been present on numerous prior studies. She then presented to the emergency room again on 02/03/2017 with pleuritic chest pain and abdominal pain. CT pulmonary and grams showed no evidence of pulmonary embolism. The stenosis at the origin of the celiac axis at that point was estimated at 95%. She underwent surgery for the celiac artery stenosis at [facility] in [place] on 05/26/2017. She had gradual recovery following that procedure. She has since then had ongoing problems with fatigue, generalized musculoskeletal pain, and abdominal pain with intermittent nausea/vomiting. As a specific cause has not been determined, she has continued symptomatic management for those issues. She has tolerated the ponatinib well with no evidence of recurrence/relapse of the CML. As of her visit in January 2020 her quantitative PCR for BCR/abl had remained undetectable. The current study is pending, but her blood counts remain stable. She continues to have fatigue and nausea along with her chronic musculoskeletal pain. Recently she has been having cystitis symptoms, though with unremarkable findings on urinalysis. Plan: She continues ponatinib at 30 mg daily and she continues her monthly B12 injections. She continues anticoagulation with apixaban. She will be given IV hydration and IV antiemetics today as needed. I will see her again in 3 months. In the meantime, she does have symptoms of cystitis without evidence of urinary tract infection, I will have her see a urologist. Signed By: Valente Gray M.D. <<Signature on File>>
[2020-04-29 10:34] LABS: P190 BCR ALB1 Not Detected; P210 BCR ALB1 Not Detected; Prior Results See Report
== END 2020-04-22 12:04 | disposition home or self-care (01) ==
LOC: ONCMED 12:04
PROVIDERS: PCP Physician Assistant Medical; Visit Provider Internal Medicine Medical Oncology
DX: C92.10 Chronic myeloid leukemia, BCR/ABL-positive, not having achieved remission (principal); E53.8 Deficiency of other specified B group vitamins; G89.29 Other chronic pain; M54.2 Cervicalgia; M54.9 Dorsalgia, unspecified; G43.719 Chronic migraine without aura, intractable, without status migrainosus; M79.7 Fibromyalgia; F41.8 Other specified anxiety disorders; Z79.899 Other long term (current) drug therapy; Z79.891 Long term (current) use of opiate analgesic; Z79.01 Long term (current) use of anticoagulants
CPT/HCPCS: 80053; 81003; 81206; 83615; 85025; 96361; 96365; 96367; 96372; 96375; 99214; C9113; J1100; J2550; J3420; J7030

== ENCOUNTER 2020-05-23 12:37 | Outpatient (CLI) | payer MEDICAID, SELFPAY ==
[2020-05-23] MEDS: sodium chloride 0.9% 1,000 ML 999 ML IV (12:50)
[2020-05-23] MEDS: pantoprazole 40 mg SDV IVP (13:24)
[2020-05-23] MEDS: cyanocobalamin 1,000 mcg/mL SDV 1000 MCG SUBCUT (14:08)
== END 2020-05-23 12:38 | disposition home or self-care (01) ==
LOC: ONCMED 12:38
PROVIDERS: PCP Physician Assistant Medical; Visit Provider Internal Medicine Medical Oncology
DX: C92.11 Chronic myeloid leukemia, BCR/ABL-positive, in remission (principal); M47.812 Spondylosis without myelopathy or radiculopathy, cervical region; M50.20 Other cervical disc displacement, unspecified cervical region; M79.7 Fibromyalgia; G43.019 Migraine without aura, intractable, without status migrainosus; F32.9 Major depressive disorder, single episode, unspecified; F41.9 Anxiety disorder, unspecified; D51.9 Vitamin B12 deficiency anemia, unspecified; K25.9 Gastric ulcer, unspecified as acute or chronic, without hemorrhage or perforation; Z86.711 Personal history of pulmonary embolism
CPT/HCPCS: 96361; 96365; 96367; 96372; 96375; C9113; J1100; J2550; J3420; J7030

== ENCOUNTER 2020-06-20 13:11 | Outpatient (CLI) | payer MEDICAID, SELFPAY ==
[2020-06-20] MEDS: pantoprazole 40 mg SDV IVP (13:20)
[2020-06-20] MEDS: sodium chloride 0.9% 1,000 ML 999 ML IV (13:20)
[2020-06-20] MEDS: cyanocobalamin 1,000 mcg/mL SDV 1000 MCG SUBCUT (15:10)
== END 2020-06-20 13:12 | disposition home or self-care (01) ==
PROVIDERS: PCP Physician Assistant Medical; Visit Provider Internal Medicine Medical Oncology
DX: C92.11 Chronic myeloid leukemia, BCR/ABL-positive, in remission (principal); M47.812 Spondylosis without myelopathy or radiculopathy, cervical region; M50.20 Other cervical disc displacement, unspecified cervical region; M79.7 Fibromyalgia; G43.019 Migraine without aura, intractable, without status migrainosus; F32.9 Major depressive disorder, single episode, unspecified; F41.9 Anxiety disorder, unspecified; D51.8 Other vitamin B12 deficiency anemias; K25.9 Gastric ulcer, unspecified as acute or chronic, without hemorrhage or perforation; Z86.711 Personal history of pulmonary embolism
CPT/HCPCS: 96361; 96365; 96367; 96372; 96375; C9113; J1100; J2550; J3420; J7030

== ENCOUNTER 2020-07-23 06:02 | Outpatient (CLI) | payer MEDICAID, SELFPAY ==
[2020-07-23] MEDS: alteplase 1 mg/mL SDV 2 mL 2 MG IV (11:30)
[2020-07-23] MEDS: pantoprazole 40 mg SDV IV (11:53)
[2020-07-23] MEDS: cyanocobalamin 1,000 mcg/mL SDV 1000 MCG SUBCUT (11:55)
[2020-07-23 12:18] LABS: Basophils % 0.7 %; Eosinophils % 0.7 %; Hematocrit 33.9 % (37.0-47.0); Lymphocytes # 0.9 10^3/uL (0.8-4.8); Lymphocytes % 22.9 %; Mean Corpuscular HGB Conc 32.4 g/dL (30.0-36.0); Mean Corpuscular Hemoglobin 29.8 pg (28.0-34.0); Mean Corpuscular Volume 91.9 fL (81-99); Mean Platelet Volume 9.8 fL (7.4-10.4); Monocytes # 0.2 10^3/uL (0.2-0.9); Neutrophils # 2.78 10^3/uL (1.8-7.7); Neutrophils % 69.5 %; Nucleated Red Blood Cells % 0 %; Platelet Count 160 10^3/cmm (130-400); Red Blood Count 3.69 10^6/uL (4.1-5.3); Red Cell Distribution Width 12.7 % (12.1-15.1)
[2020-07-23 12:37] LABS: Alanine Aminotransferase 9 U/L (0-33); Alkaline Phosphatase 75 IU/L (35-105); Anion Gap 10.8 (5-19); Aspartate Amino Transferase 14 U/L (0-32); Blood Urea Nitrogen 9 mg/dL (8-23); Calcium 8.8 mg/dL (8.5-10.5); Carbon Dioxide 28 mmol/L (22-29); Chloride 102 mmol/L (98-107); Globulin 2.1 g/dL (1.3-4.6); Glomerular Filtration Rate 85.4 mL/min (90-130); Glucose 93 mg/dL (65-115); Lactate Dehydrogenase 132 U/L (135-214); Osmolality Calculated 282 mOsm/kg (285-295); Potassium 3.8 mmol/L (3.5-5.1); Sodium 137 mmol/L (136-145); Total Bilirubin 0.2 mg/dL (0.15-1.2); Total Protein 6.1 g/dL (6.6-8.7)
[2020-07-23] MEDS: sodium chloride 0.9% 1,000 ML 999 ML IV (13:01)
[2020-07-23 16:24] VITALS: RESP 16
[2020-07-23] MEDS: HYDROmorphone 1 mg/mL INJ 1 mL 2 MG SUBCUT (16:24)
[2020-07-25 22:57] LABS: BCR ABL1 (IS) 0.008 (0.000); P190 BCR ALB1 NOT DETECTED; P210 BCR ALB1 DETECTED; Prior Results NG; Source serum
--- NOTE | 2020-07-27 13:12 | ONC FU_ITS ---
Dr. Gray Patient Follow-Up Note Patient: Alysa Acosta Unit #: [id number]: [id number] Dicatated By: Valente Gray M.D.Date of Visit:Jul 23, 2020 Onc Med Follow-up/Prog Note Chief Complaint: Chronic myeloid leukemia. History of Present Illness: This is a 60 year-old woman with Flathead chromosome positive chronic myeloid leukemia. The leukemia was initially diagnosed in February of 2004. She had a good response to treatment with imatinib, but she did have documented relapse by bone marrow biopsy in October of 2008. She had poor tolerance for subsequent treatment with both dasatinib and nilotinib. Her repeat bone marrow aspiration/biopsy in October 2010 showed 100% cellularity, and her chromosome analysis was positive for the 9;22 translocation in all cells examined. She then began treatment with ponatinib on a clinical trial through [facility]. She had a very good clinical response, and she did seem to tolerate it well. However, in April 2014 she underwent placement of Port-A-Cath venous access device, and the procedure was complicated by a small pneumothorax. Her evaluation at that time also included CT pulmonary angiogram. It showed a left lower lobe lateral distal segmental pulmonary embolus. At that point she was admitted to the hospital on observation. She started anticoagulation with Lovenox and she stopped the ponatinib. Her subsequent clinical course was complicated by an acute drop in her hemoglobin with associated hypotension. She did require a transfusion of packed red blood cells. She was found to have a heme positive stool, and she was taken off anticoagulation. She underwent upper GI endoscopy and colonoscopy in August 2014. The upper endoscopy did show multiple ulcers in the antrum. These were not bleeding. She had been taking 150 mg of ranitidine twice daily, and at that point she started taking Protonix. She had a repeat upper GI endoscopy on 12/04/14. The only finding was some mild nonerosive gastritis in the antrum. There was no bleeding noted. Subsequent to that procedure she did restart anticoagulation with apixaban at 5 mg twice a day, and following her office visit on 12/19/14 she also restarted ponatinib at 30 mg daily. During followup there was no documented progression of her leukemia. Her quantitative PCR for BCR/abl remained undetectable or detectable at a very low level. In March 2016 she had presented to the emergency room with abdominal pain and vomiting. CT abdomen/pelvis showed distended fluid-filled loop of bowel in the right lower quadrant suspicious for volvulus, closed-loop obstruction, adhesions, or internal hernia. She was admitted to the hospital, but managed conservatively, and she did get better clinically after she was given laxatives and had multiple bowel movements. She continued treatment with ponatinib. She had subsequently continued to have ongoing problems with nausea/vomiting. She has had associated emergency room visits on 08/19/2016, on 10/24/2016, and on 11/18/2016. Repeat CT abdomen/pelvis in October 2016 showed evidence of mild jejunitis. 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 I did review that study with the radiologist, and that finding had been present on numerous prior studies. As of her follow-up visit in November 2016 her BCR/abl remained undetectable. On 02/03/2017 she presented to the emergency room again with sharp pain in the left side of her chest which was worse with deep breathing. The pain did radiate through to the back. She also was having significant abdominal pain. CT pulmonary angiogram at that time showed no evidence of pulmonary embolism. 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 There was post stenotic dilatation noted. She underwent further evaluation for the celiac artery stenosis in [place], and she then underwent surgery at [facility] on 05/26/2017. She then continued treatment with ponatinib 30 mg daily and she continued anticoagulation with apixaban 5 mg twice a day. She has significant underlying medical problems including severe degenerative disease of the spine with chronic neck and back pain. The problem has been further aggravated by chronic, intractable migraine headaches. She also has a component of generalized pain which is felt to be consistent with fibromyalgia. She has chronic anxiety/depression. She also was found to have B12 deficiency, for which she has remained on B12 replacement. She does not smoke or drink alcohol. INTERIM HISTORY: As of 04/22/2020 her quantitative PCR for BCR/abl remained undetectable. She continued treatment with ponatinib 30 mg daily. She is seen for a scheduled visit. She says she had a bad fall a month ago and since then she has been having more severe pain in the lower back and right sciatic area. She also has pain in her left shoulder. She continues to have episodes of nausea/vomiting at least once or twice a week. She does tend to feel better after IV hydration. She has fatigue and her activity is limited. Her ECOG score is 1. Her appetite is so-so, but she has gained weight. She has not had fever. She does have hot flashes and sweating. She has no shortness of breath, cough, or chest pain. Bowel function is so-so, but adequate. She has no complaints. Her headaches generally have been better. She has no focal neurologic symptoms. Medications: Acyclovir 1 (200 mg) Capsule Oral b.i.d., [id number] 1 (50-325-40 mg) Tablet Oral four times a day, Diazepam 1 (5 mg) Tablet Oral at bedtime, Eliquis 1 (5 mg) Tablet Oral b.i.d., EQL Senna Laxative Tablet Oral t.i.d. PRN, Gabapentin (300 mg) Capsule Oral Take as Directed, HYDROmorphone HCl 1 Tablet (of 4 mg) Oral four times a day PRN, Iclusig 1 (15 mg) Tablet Oral daily, Levothyroxine Sodium 1 (50 mcg) Tablet Oral daily, Magnesium Oxide 1 (400 mg) Capsule Oral daily, Montelukast Sodium 1 (10 mg) Tablet Oral daily, Pantoprazole Sodium 1 (40 mg) Tablet, enteric coated Oral b.i.d., PONATinib HCl 15 mg (of 15 mg) Tablet Oral daily, Potassium Chloride 1 (20 meq) Tablet, controlled release Oral b.i.d., Promethazine HCl 1 (25 mg) Tablet Oral four times a day, Requip 1 (1 mg) Tablet Oral b.i.d., Sucralfate 1 (1 G) Tablet Oral four times a day, Venlafaxine HCl 1 (150 mg) Tablet Oral daily Allergies: Codeine Sulfate, elavil, Latex Exam Gloves, Morphine Sulfate, Penicillin V Potassium, and ZyPREXA. Review of Systems: Constitutional - She has fatigue and limited activity, but she is able to do some light work at home. Appetite is so-so, but she has gained weight. She does not have fever. She does have hot flashes and sweating. ECOG score is 1, ENMT - She has sinus congestion/drainage. She has had sore mouth. No sore throat or difficulty swallowing, Hematologic/Lymphatic - She has easy bruising, Respiratory - No shortness of breath. No cough. No pleuritic pain or hemoptysis, Cardiovascular - No angina pain. No palpitations, Gastrointestinal - She has nausea/vomiting at least once or twice a week. No heartburn or acid reflux. Her bowels are just so-so. No blood in the stool or black stools, Genitourinary (F) - No dysuria or hematuria. No urinary frequency. No urgency or incontinence, Musculoskeletal - She has had increased low back pain and right sciatic pain after a bad fall a month ago. She also has pain in her left shoulder, Integumentary - No skin rash, Neurologic - Her headaches generally have been better. No dizziness. No numbness or tingling. No other focal neurologic symptoms, Psychiatric - She has anxiety/depression. She has difficulty sleeping. Vital Signs: Performed on Jul 23, 2020 15:19 Height - 63.00 in Weight - 126.2 lbs (HIGH) BSA - 1.59 sq.m BMI - 22.36 Temperature - 98.5 F Pulse - 71 /min Respiration - 16 /min BP - 114/71 mm(hg) O2 Sat - 98 % Pain - 10 Physical Examination: Constitutional - She does not appear acutely ill, Eyes - Sclerae nonicteric. Conjunctivae clear, ENMT - Her mouth is dry. There are no lesions noted in the oral cavity, Hematologic/Lymphatic - No cervical, clavicular, or axillary adenopathy, Respiratory - Lungs are clear with good air movement bilaterally, Cardiovascular - Heart rhythm is regular. There is no murmur, gallop, or rub noted, Abdomen - Soft. There is mild tenderness in the left lower quadrant. Liver and spleen are not enlarged. There is no abdominal mass or ascites noted. There is no inguinal adenopathy, Extremities - No edema, Neurologic - No focal neurologic deficits noted. Lab/Imaging: Test performed on Jul 23, 2020 11:56 LDH (Total) 132 U/L Sodium 137 mmol/L Potassium 3.8 mmol/L Chloride 102 mmol/L CO2 28 mmol/L Anion Gap 10.8 BUN 9 mg/dL Creatinine 0.7 mg/dL Cr Clearance (Est) 77.23 mL/min eGFR 85.4 mL/min Glucose 93 mg/dL Osmolality - Calculated 282 mOsm/kg Calcium 8.8 mg/dL Protein, Total 6.1 g/dL Albumin 4.0 g/dL Globulin 2.1 g/dL Bilirubin, Total 0.2 mg/dL ALT (SGPT) 9 U/L AST (SGOT) 14 U/L Alkaline Phosphatase 75 IU/L WBC 4.0 10 3/uL RBC 3.69 10 6/uL HGB 11.0 g/dL HCT 33.9 % MCV 91.9 fL MCH 29.8 pg MCHC 32.4 g/dL RDW 12.7 % Platelet Count 160 10 3/cmm MPV 9.8 fL Neutrophils 2.78 10 3/uL Lymphocytes 0.9 10 3/uL Monocytes 0.2 10 3/uL Eosinophils 0.0 10 3/uL Basophils 0.0 10 3/uL Neutrophil % 69.5 % Lymphocyte % 22.9 % Monocyte % 6.0 % Eosinophil % 0.7 % Basophils % 0.7 % NRBC % 0 % Impression: 1. Patient has a Flathead chromosome positive chronic myeloid leukemia initially diagnosed in February 2004. She had progressed following initial response to imatinib. She then failed or was intolerant to subsequent treatment with nilotinib and desatinib. 2. In December 2010 she began treatment with ponatinib on a clincal trial thru [facility]. She responded well, and her disease was felt to be in remission. However, the ponatinib was stopped in April 2015 when she was found on CT pulmonary angiogram to have a left lower lobe lateral distal segmental pulmonary embolus. She initially was on anticoagulation with Lovenox, but it was stopped because of an episode of acute anemia due to GI blood loss. 3. She ultimately was confirmed to have gastric ulcers by upper GI endoscopy in August 2014. She was treated with Protonix with documented healing of the ulcers by followup endoscopy in November 2014. At that point she restarted anticoagulation with apixaban and she subsequently restarted treatment with ponatinib at 30 mg daily. 4. Her management has been complicated by her pre-existing medical illnesses which include intractable migraine, severe degenerative disease of the cervical spine, and a generalized pain disorder which is felt to be consistent with fibromyalgia. 5. She has had recurrent episodes of vomiting/dehydration, which tend to be associated with headaches. 6. She had significant changes in her blood counts following an E. coli urinary tract infection in April 2015, but her quantitative BCR/abl studies remained low or undetectable, and her blood counts subsequently returned to within normal range. She continued treatment with ponatinib 30 mg daily, and she continued anticoagulation with apixaban. During followup she continued to have abdominal pain and nausea/vomiting. Her CT abdomen/pelvis on 10/24/2016 showed evidence of 70% stenosis in the origin of the celiac access. The clinical significance of that finding was uncertain, as it had been present on numerous prior studies. She then presented to the emergency room again on 02/03/2017 with pleuritic chest pain and abdominal pain. CT pulmonary and grams showed no evidence of pulmonary embolism. The stenosis at the origin of the celiac axis at that point was estimated at 95%. She underwent surgery for the celiac artery stenosis at [facility] in [place] on 05/26/2017. She had gradual recovery following that procedure. She has since then had ongoing problems with fatigue, generalized musculoskeletal pain, and abdominal pain with intermittent nausea/vomiting. As a specific cause has not been determined, she has continued symptomatic management for those issues. She has tolerated the ponatinib well with no evidence of recurrence/relapse of the CML. As of her visit in April 2020 her quantitative PCR for BCR/abl had remained undetectable. The current study is pending, but her blood counts appear to be unchanged. Her pain has worsened somewhat since a fall one month ago. Her clinical status otherwise appears stable, though she does have multiple other chronic complaints. Plan: She continues ponatinib at 30 mg daily and she continues monthly B12 injections. She also will continue anticoagulation with apixaban. Her medications remain the same. She also will continue IV hydration as needed. In the absence of any significant change in her PCR, I will just see her again in 3 months. Signed By: Valente Gray M.D. <<Signature on File>>
== END 2020-07-23 06:03 | disposition home or self-care (01) ==
LOC: ONCMED 06:03
PROVIDERS: PCP Physician Assistant Medical; Visit Provider Internal Medicine Medical Oncology
DX: C92.11 Chronic myeloid leukemia, BCR/ABL-positive, in remission (principal); M47.812 Spondylosis without myelopathy or radiculopathy, cervical region; M50.20 Other cervical disc displacement, unspecified cervical region; M79.7 Fibromyalgia; G43.019 Migraine without aura, intractable, without status migrainosus; F32.9 Major depressive disorder, single episode, unspecified; F41.9 Anxiety disorder, unspecified; D51.9 Vitamin B12 deficiency anemia, unspecified; K25.0 Acute gastric ulcer with hemorrhage; Z86.711 Personal history of pulmonary embolism; Z23 Encounter for immunization; Z79.01 Long term (current) use of anticoagulants
CPT/HCPCS: 36593; 80053; 81206; 83615; 85025; 90471; 90686; 96361; 96365; 96367; 96372; 96375; 99214; C9113; J1100; J1170; J2550; J2997; J3420; J7030

== ENCOUNTER 2020-08-22 10:54 | Outpatient (CLI) | payer MEDICAID, SELFPAY ==
[2020-08-22] MEDS: pantoprazole 40 mg SDV IVP (12:04)
[2020-08-22] MEDS: cyanocobalamin 1,000 mcg/mL SDV 1000 MCG SUBCUT (12:10)
[2020-08-22 12:40] VITALS: RESP 16
[2020-08-22] MEDS: HYDROmorphone 1 mg/mL INJ 1 mL 2 MG SUBCUT (12:40)
[2020-08-22] MEDS: sodium chloride 0.9% 1,000 mL Bolus 999 ML IV (12:55)
== END 2020-08-22 10:55 | disposition home or self-care (01) ==
LOC: ONCMED 10:57
PROVIDERS: PCP Physician Assistant Medical; Visit Provider Internal Medicine Medical Oncology
DX: C92.11 Chronic myeloid leukemia, BCR/ABL-positive, in remission (principal); M47.812 Spondylosis without myelopathy or radiculopathy, cervical region; M50.20 Other cervical disc displacement, unspecified cervical region; M79.7 Fibromyalgia; G43.019 Migraine without aura, intractable, without status migrainosus; F32.9 Major depressive disorder, single episode, unspecified; F41.9 Anxiety disorder, unspecified; D51.9 Vitamin B12 deficiency anemia, unspecified; K25.9 Gastric ulcer, unspecified as acute or chronic, without hemorrhage or perforation; Z86.711 Personal history of pulmonary embolism
CPT/HCPCS: 96361; 96365; 96367; 96372; 96375; C9113; J1100; J1170; J2550; J3420; J7030

== ENCOUNTER 2020-09-19 06:33 | Outpatient (CLI) | payer MEDICAID, SELFPAY ==
[2020-09-19] MEDS: pantoprazole 40 mg SDV IVP (11:27)
[2020-09-19] MEDS: cyanocobalamin 1,000 mcg/mL SDV 1000 MCG SUBCUT (11:29)
[2020-09-19] MEDS: sodium chloride 0.9% 1,000 mL Bolus 999 ML IV (12:17)
[2020-09-19 12:18] VITALS: RESP 16; O2SAT 96
[2020-09-19] MEDS: HYDROmorphone 1 mg/mL INJ 1 mL 2 MG SUBCUT (12:18)
== END 2020-09-19 06:34 | disposition home or self-care (01) ==
LOC: ONCMED 06:34
PROVIDERS: PCP Physician Assistant Medical; Visit Provider Internal Medicine Medical Oncology
DX: C92.11 Chronic myeloid leukemia, BCR/ABL-positive, in remission (principal); D64.9 Anemia, unspecified; M47.812 Spondylosis without myelopathy or radiculopathy, cervical region; M50.20 Other cervical disc displacement, unspecified cervical region; M79.7 Fibromyalgia; G43.019 Migraine without aura, intractable, without status migrainosus; F32.9 Major depressive disorder, single episode, unspecified; F41.9 Anxiety disorder, unspecified; D51.8 Other vitamin B12 deficiency anemias; Z86.711 Personal history of pulmonary embolism; K25.9 Gastric ulcer, unspecified as acute or chronic, without hemorrhage or perforation
CPT/HCPCS: 96361; 96365; 96367; 96372; 96375; C9113; J1100; J1170; J2550; J3420; J7030

== ENCOUNTER 2020-10-17 10:14 | Outpatient (CLI) | payer MEDICAID, SELFPAY ==
[2020-10-17] MEDS: pantoprazole 40 mg SDV IV (10:52)
[2020-10-17] MEDS: cyanocobalamin 1,000 mcg/mL SDV 1000 MCG SUBCUT (10:54)
[2020-10-17 10:55] VITALS: RESP 16; O2SAT 97
[2020-10-17] MEDS: HYDROmorphone 1 mg/mL INJ 1 mL 2 MG IV (10:55)
[2020-10-17] MEDS: sodium chloride 0.9% 1,000 ML 999 ML IV (11:47)
== END 2020-10-17 10:15 | disposition home or self-care (01) ==
LOC: ONCMED 10:15
PROVIDERS: PCP Physician Assistant Medical; Visit Provider Internal Medicine Medical Oncology
DX: C92.10 Chronic myeloid leukemia, BCR/ABL-positive, not having achieved remission (principal); D51.8 Other vitamin B12 deficiency anemias; M47.812 Spondylosis without myelopathy or radiculopathy, cervical region; M50.20 Other cervical disc displacement, unspecified cervical region; M79.7 Fibromyalgia; G43.019 Migraine without aura, intractable, without status migrainosus; F32.9 Major depressive disorder, single episode, unspecified; F41.9 Anxiety disorder, unspecified; Z86.711 Personal history of pulmonary embolism; K25.9 Gastric ulcer, unspecified as acute or chronic, without hemorrhage or perforation
CPT/HCPCS: 96361; 96365; 96367; 96372; 96375; C9113; J1100; J1170; J2550; J3420; J7030

== ENCOUNTER 2020-11-12 09:15 | Outpatient (CLI) | payer MEDICAID, SELFPAY ==
[2020-11-12] MEDS: pantoprazole 40 mg SDV IVP (09:51)
[2020-11-12] MEDS: cyanocobalamin 1,000 mcg/mL SDV 1000 MCG SUBCUT (09:54)
[2020-11-12 10:26] LABS: Basophils % 0.8 %; Eosinophils # 0.1 10^3/uL (0.0-0.8); Eosinophils % 2.2 %; Hemoglobin 11.6 g/dL (11.5-15.3); Lymphocytes # 1.2 10^3/uL (0.8-4.8); Lymphocytes % 33.2 %; Mean Corpuscular HGB Conc 32.2 g/dL (30.0-36.0); Mean Corpuscular Hemoglobin 29.8 pg (28.0-34.0); Mean Corpuscular Volume 92.5 fL (81-99); Mean Platelet Volume 10.7 fL (7.4-10.4); Monocytes # 0.2 10^3/uL (0.2-0.9); Monocytes % 6.3 %; Neutrophils # 2.08 10^3/uL (1.8-7.7); Neutrophils % 57.2 %; Nucleated Red Blood Cells % 0 %; Platelet Count 157 10^3/cmm (130-400); Red Blood Count 3.89 10^6/uL (4.1-5.3); Red Cell Distribution Width 13.2 % (12.1-15.1); White Blood Count 3.6 10^3/uL (4.0-10.0)
[2020-11-12] MEDS: sodium chloride 0.9% 1,000 ML 999 ML IV (10:43)
[2020-11-12 10:44] LABS: Alanine Aminotransferase 7 U/L (0-33); Albumin Level 4.3 g/dL (3.5-5.2); Alkaline Phosphatase 56 IU/L (35-105); Anion Gap 9.9 (5-19); Aspartate Amino Transferase 13 U/L (0-32); Blood Urea Nitrogen 9 mg/dL (8-23); Calcium 9.1 mg/dL (8.5-10.5); Carbon Dioxide 29 mmol/L (22-29); Chloride 104 mmol/L (98-107); Globulin 2.3 g/dL (1.3-4.6); Glucose 86 mg/dL (65-115); Lactate Dehydrogenase 155 U/L (135-214); Osmolality Calculated 286 mOsm/kg (285-295); Potassium 3.9 mmol/L (3.5-5.1); Sodium 139 mmol/L (136-145); Total Bilirubin 0.2 mg/dL (0.15-1.2); Total Protein 6.6 g/dL (6.6-8.7)
[2020-11-12 13:42] LABS: Iron 78 ug/dL (37-145); Percent Saturation 35.9 % (20-50); Total Iron Binding Capacity 217 mcg/dl; Unsaturated Iron Binding 139 ug/dL (112-347)
--- NOTE | 2020-11-16 10:16 | ONC FU_ITS ---
Dr. Gray Patient Follow-Up Note Patient: Alysa Acosta Unit #: [id number]: [id number] Dicatated By: Valente Gray M.D.Date of Visit:Nov 12, 2020 Onc Med Follow-up/Prog Note Chief Complaint: Chronic myeloid leukemia. History of Present Illness: This is a 60 year-old woman with [place] chromosome positive chronic myeloid leukemia. The leukemia was initially diagnosed in February of 2004. She had a good response to treatment with imatinib, but she did have documented relapse by bone marrow biopsy in October of 2008. She had poor tolerance for subsequent treatment with both dasatinib and nilotinib. Her repeat bone marrow aspiration/biopsy in October 2010 showed 100% cellularity, and her chromosome analysis was positive for the 9;22 translocation in all cells examined. She then began treatment with ponatinib on a clinical trial through [facility]. She had a very good clinical response, and she did seem to tolerate it well. However, in April 2014 she underwent placement of Port-A-Cath venous access device, and the procedure was complicated by a small pneumothorax. Her evaluation at that time also included CT pulmonary angiogram. It showed a left lower lobe lateral distal segmental pulmonary embolus. At that point she was admitted to the hospital on observation. She started anticoagulation with Lovenox and she stopped the ponatinib. Her subsequent clinical course was complicated by an acute drop in her hemoglobin with associated hypotension. She did require a transfusion of packed red blood cells. She was found to have a heme positive stool, and she was taken off anticoagulation. She underwent upper GI endoscopy and colonoscopy in August 2014. The upper endoscopy did show multiple ulcers in the antrum. These were not bleeding. She had been taking 150 mg of ranitidine twice daily, and at that point she started taking Protonix. She had a repeat upper GI endoscopy on 12/04/14. The only finding was some mild nonerosive gastritis in the antrum. There was no bleeding noted. Subsequent to that procedure she did restart anticoagulation with apixaban at 5 mg twice a day, and following her office visit on 12/19/14 she also restarted ponatinib at 30 mg daily. During followup there was no documented progression of her leukemia. Her quantitative PCR for BCR/abl remained undetectable or detectable at a very low level. In March 2016 she had presented to the emergency room with abdominal pain and vomiting. CT abdomen/pelvis showed distended fluid-filled loop of bowel in the right lower quadrant suspicious for volvulus, closed-loop obstruction, adhesions, or internal hernia. She was admitted to the hospital, but managed conservatively, and she did get better clinically after she was given laxatives and had multiple bowel movements. She continued treatment with ponatinib. She had subsequently continued to have ongoing problems with nausea/vomiting. She has had associated emergency room visits on 08/19/2016, on 10/24/2016, and on 11/18/2016. Repeat CT abdomen/pelvis in October 2016 showed evidence of mild jejunitis. 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 I did review that study with the radiologist, and that finding had been present on numerous prior studies. As of her follow-up visit in November 2016 her BCR/abl remained undetectable. On 02/03/2017 she presented to the emergency room again with sharp pain in the left side of her chest which was worse with deep breathing. The pain did radiate through to the back. She also was having significant abdominal pain. CT pulmonary angiogram at that time showed no evidence of pulmonary embolism. 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 There was post stenotic dilatation noted. She underwent further evaluation for the celiac artery stenosis in [place], and she then underwent surgery at [facility] on 05/26/2017. She then continued treatment with ponatinib 30 mg daily and she continued anticoagulation with apixaban 5 mg twice a day. During follow-up her quantitative PCR remained undetectable. As of October 2019 the ponatinib dosage was reduced to 15 mg daily. She has significant underlying medical problems including severe degenerative disease of the spine with chronic neck and back pain. The problem has been further aggravated by chronic, intractable migraine headaches. She also has a component of generalized pain which is felt to be consistent with fibromyalgia. She has chronic anxiety/depression. She also was found to have B12 deficiency, for which she has remained on B12 replacement. She does not smoke or drink alcohol. INTERIM HISTORY: As of 04/22/2020 her quantitative PCR for BCR/abl remained undetectable. At her follow-up visit on 07/23/2020 the quantitative PCR was detectable at the very low level, 0.008%. At that point she continued the ponatinib at 15 mg daily. She is seen for a scheduled visit. She has not been feeling good. She complains that she is having nausea when she takes her medication. She does not have good appetite and she is having trouble keeping food down. Her weight has dropped 10 pounds. Her energy is not real good. She is able to do some light work. ECOG score is 1. She has not had fever. She does have hot flashes and sweating. She has had sore mouth and she reports that she has had blisters under her dentures. She has no shortness of breath, cough, or chest pain. Bowel and bladder function remain adequate. She continues to have pain in her lower back and in both legs. She has been having more headaches again. She does not complain of dizziness. She has no focal neurologic symptoms. Medications: Acyclovir 1 (200 mg) Capsule Oral b.i.d., Amtprjitlm-[id number]-[id number] 1 (50-325-40 mg) Tablet Oral four times a day, Diazepam 1 (5 mg) Tablet Oral at bedtime, Eliquis 1 (5 mg) Tablet Oral b.i.d., EQL Senna Laxative Tablet Oral t.i.d. PRN, Gabapentin (300 mg) Capsule Oral Take as Directed, HYDROmorphone HCl 1 Tablet (of 4 mg) Oral four times a day PRN, Iclusig 1 (15 mg) Tablet Oral daily, Levothyroxine Sodium 1 (50 mcg) Tablet Oral daily, Magnesium Oxide 1 (400 mg) Capsule Oral daily, Montelukast Sodium 1 (10 mg) Tablet Oral daily, Pantoprazole Sodium 1 (40 mg) Tablet, enteric coated Oral b.i.d., PONATinib HCl 15 mg (of 15 mg) Tablet Oral daily, Potassium Chloride 1 (20 meq) Tablet, controlled release Oral b.i.d., Promethazine HCl 1 (25 mg) Tablet Oral four times a day, Requip 1 (1 mg) Tablet Oral b.i.d., Sucralfate 1 (1 G) Tablet Oral four times a day, Venlafaxine HCl 1 (150 mg) Tablet Oral daily Allergies: Codeine Sulfate, elavil, Latex Exam Gloves, Morphine Sulfate, Penicillin V Potassium, and ZyPREXA. Vital Signs: Performed on Nov 12, 2020 11:16 Height - 63.00 in Weight - 116.4 lbs (LOW) BSA - 1.54 sq.m BMI - 20.62 Temperature - 100.1 F (HIGH) Pulse - 78 /min Respiration - 16 /min BP - 115/67 mm(hg) O2 Sat - 97 % Pain - 9 Physical Examination: Constitutional - She looks pale, Eyes - Sclerae nonicteric. Conjunctivae clear, ENMT - Mouth is dry. There are no lesions noted in the oral cavity, Hematologic/Lymphatic - No cervical, clavicular, or axillary adenopathy, Respiratory - Lungs are clear with good air movement bilaterally, Cardiovascular - Heart rhythm is regular. There is no murmur, gallop, or rub noted, Abdomen - There is mild abdominal tenderness, but her abdomen is soft. Liver and spleen are not enlarged. There is no abdominal mass or ascites noted. There is no inguinal adenopathy, Extremities - No edema, Neurologic - No focal neurologic deficits noted. Lab/Imaging: Test performed on Nov 12, 2020 09:55 Iron 78 mcg/dL LDH (Total) 155 U/L Sodium 139 mmol/L Iron Binding Capacity (TIBC) 217 mcg/dl Potassium 3.9 mmol/L % Iron Saturation 35.9 % Chloride 104 mmol/L CO2 29 mmol/L UIBC 139 mcg/dL Anion Gap 9.9 BUN 9 mg/dL Creatinine 0.6 mg/dL Cr Clearance (Est) 83.11 mL/min eGFR 102.0 mL/min Glucose 86 mg/dL Osmolality - Calculated 286 mOsm/kg Calcium 9.1 mg/dL Protein, Total 6.6 g/dL Albumin 4.3 g/dL Globulin 2.3 g/dL Bilirubin, Total 0.2 mg/dL ALT (SGPT) 7 U/L AST (SGOT) 13 U/L Alkaline Phosphatase 56 IU/L WBC 3.6 10 3/uL RBC 3.89 10 6/uL HGB 11.6 g/dL HCT 36.0 % MCV 92.5 fL MCH 29.8 pg MCHC 32.2 g/dL RDW 13.2 % Platelet Count 157 10 3/cmm MPV 10.7 fL Neutrophils 2.08 10 3/uL Lymphocytes 1.2 10 3/uL Monocytes 0.2 10 3/uL Eosinophils 0.1 10 3/uL Basophils 0.0 10 3/uL Neutrophil % 57.2 % Lymphocyte % 33.2 % Monocyte % 6.3 % Eosinophil % 2.2 % Basophils % 0.8 % NRBC % 0 % Problem List: 1. [place] chromosome positive chronic myeloid leukemia, initially diagnosed in February 2004. She has been on treatment with ponatinib after failure or intolerance to imatinib, nilotinib, and dasatinib. 2. In April 2015 she was found on [address] pulmonary angiogram to have a left lower lobe lateral distal segmental pulmonary embolus. She initially was on anticoagulation with Lovenox, but it was stopped because of an episode of acute anemia due to GI blood loss. 3. She was confirmed to have gastric ulcers by upper GI endoscopy in August 2014. She was treated with Protonix with documented healing of the ulcers by followup endoscopy in November 2014. At that point she restarted anticoagulation with apixaban. 4. Intractable migraine. 5. Degenerative disease of the spine. 6. Generalized pain disorder which is felt to be consistent with fibromyalgia. 7. She has had recurrent episodes of vomiting/dehydration, which have tended to be associated with headaches. 8. In January 2017 She had presented to the emergency room with abdominal pain. 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 She underwent surgery for the celiac artery stenosis at [facility] in [place] on 05/26/2017. Problems Addressed with this Encounter and Plan: 1. Patient with [place] chromosome positive chronic myeloid leukemia initially diagnosed in February 2004. She had progressed following initial response to imatinib. She then failed or was intolerant to subsequent treatment with nilotinib and desatinib. In December 2010 she began treatment with ponatinib on a clincal trial through [facility]. She responded well, and her disease was felt to be in remission. The ponatinib was stopped in April 2014 when she was found on CT pulmonary angiogram to have a left lower lobe lateral distal segmental pulmonary embolus. She initially was on anticoagulation with Lovenox, but it was stopped because of an episode of acute anemia due to GI blood loss. She was able to restart anticoagulation with apixaban after documented healing of the gastric ulcers, and she was then able to restart the ponatinib in December 2014. During subsequent follow-up her quantitative PCR for BCR/abl became undetectable with the ponatinib dosed at 30 mg daily. As of her follow-up in April 2020 her PCR had remained undetectable. In July 2020 the PCR was detectable at a very low level, 0.008%. The results of the current PCR are still pending. For now she will continue the ponatinib at 15 mg daily, but if there is any further increase in her quantitative PCR, I will escalate the dosage. I will tentatively plan a follow-up in 3 months, but I will see her again sooner as needed. 2. Her management has been complicated due to multiple chronic complaints which include chronic pain, headaches, and recurrent episodes of nausea/vomiting. She has generally felt better with continuation of maintenance IV fluids and antiemetics. Recently her nausea/anorexia has been worse again, and she has had a 10 pound weight loss. She will be given her usual IV hydration and antiemetics today. Her pain medication remains the same. She has been taking Phenergan for nausea, and she is recommended to take a dose of Phenergan 30 minutes prior to her ponatinib. She is also recommended to stop her oral iron supplement, as she does not appear to have iron deficiency. She is to let us know if her nausea is not improving. 3. She has B12 deficiency, and she continues replacement with monthly B12 injections. 4. She had evidence of pulmonary embolism by CT pulmonary angiogram in April 2015. She is on medication that has risk of thromboembolism, and she continues anticoagulation with apixaban 5 mg twice daily. Signed By: Valente Gray M.D. <<Signature on File>>
[2020-11-16 21:32] LABS: P210 BCR ALB1 NOT DETECTED; Prior Results N; Source serum
== END 2020-11-12 09:16 | disposition home or self-care (01) ==
LOC: ONCMED 09:16
PROVIDERS: PCP Physician Assistant Medical; Visit Provider Internal Medicine Medical Oncology
DX: C92.10 Chronic myeloid leukemia, BCR/ABL-positive, not having achieved remission (principal); E53.8 Deficiency of other specified B group vitamins; R11.2 Nausea with vomiting, unspecified; R51.9 Headache, unspecified; G89.29 Other chronic pain; T45.1X5A Adverse effect of antineoplastic and immunosuppressive drugs, initial encounter; Z79.899 Other long term (current) drug therapy; Z86.711 Personal history of pulmonary embolism; Z79.01 Long term (current) use of anticoagulants
CPT/HCPCS: 80053; 81206; 83540; 83550; 83615; 85025; 96361; 96365; 96367; 96372; 96375; 99214; C9113; J1100; J2550; J3420; J7030

== ENCOUNTER 2020-12-09 12:39 | Outpatient (CLI) | payer MEDICAID, SELFPAY ==
[2020-12-09] MEDS: sodium chloride 0.9% 1,000 ML 999 ML IV (13:10)
[2020-12-09] MEDS: pantoprazole 40 mg SDV IV (13:10)
[2020-12-09] MEDS: cyanocobalamin 1,000 mcg/mL SDV 1000 MCG SUBCUT (13:13)
[2020-12-09 13:45] VITALS: RESP 18; O2SAT 98
[2020-12-09] MEDS: HYDROmorphone 1 mg/mL INJ 1 mL 2 MG SUBCUT (13:45)
== END 2020-12-09 12:40 | disposition home or self-care (01) ==
LOC: ONCMED 12:41
PROVIDERS: PCP Physician Assistant Medical; Visit Provider Internal Medicine Medical Oncology
DX: D51.8 Other vitamin B12 deficiency anemias (principal); C92.11 Chronic myeloid leukemia, BCR/ABL-positive, in remission; M47.812 Spondylosis without myelopathy or radiculopathy, cervical region; M79.7 Fibromyalgia; K25.9 Gastric ulcer, unspecified as acute or chronic, without hemorrhage or perforation; E86.9 Volume depletion, unspecified; Z86.711 Personal history of pulmonary embolism; G43.019 Migraine without aura, intractable, without status migrainosus; F32.9 Major depressive disorder, single episode, unspecified; F41.9 Anxiety disorder, unspecified
CPT/HCPCS: 96361; 96365; 96367; 96372; 96375; C9113; J1100; J1170; J2550; J3420; J7030

== ENCOUNTER 2021-01-08 12:10 | Outpatient (CLI) | payer MEDICAID, SELFPAY ==
[2021-01-08] MEDS: pantoprazole 40 mg SDV IV (12:54)
[2021-01-08] MEDS: cyanocobalamin 1,000 mcg/mL SDV 1000 MCG SUBCUT (12:55)
[2021-01-08] MEDS: sodium chloride 0.9% 1,000 ML 999 ML IV (13:13)
== END 2021-01-08 12:11 | disposition home or self-care (01) ==
PROVIDERS: PCP Physician Assistant Medical; Visit Provider Internal Medicine Medical Oncology
DX: C92.10 Chronic myeloid leukemia, BCR/ABL-positive, not having achieved remission (principal); D50.0 Iron deficiency anemia secondary to blood loss (chronic); D51.9 Vitamin B12 deficiency anemia, unspecified
CPT/HCPCS: 96361; 96365; 96367; 96372; 96375; C9113; J1100; J2550; J3420; J7030

== ENCOUNTER 2021-02-05 08:50 | Outpatient (CLI) | payer MEDICAID, SELFPAY ==
[2021-02-05] MEDS: pantoprazole 40 mg SDV IV (09:30)
[2021-02-05] MEDS: cyanocobalamin 1,000 mcg/mL SDV 1000 MCG SUBCUT (09:31)
[2021-02-05 09:45] LABS: Basophils % 0.9 %; Eosinophils # 0.1 10^3/uL (0.0-0.8); Eosinophils % 1.7 %; Hematocrit 36.8 % (37.0-47.0); Lymphocytes # 1.1 10^3/uL (0.8-4.8); Lymphocytes % 31.3 %; Mean Corpuscular HGB Conc 32.6 g/dL (30.0-36.0); Mean Corpuscular Hemoglobin 30.2 pg (28.0-34.0); Mean Corpuscular Volume 92.5 fL (81-99); Mean Platelet Volume 10.2 fL (7.4-10.4); Monocytes # 0.2 10^3/uL (0.2-0.9); Monocytes % 6.6 %; Neutrophils # 2.08 10^3/uL (1.8-7.7); Neutrophils % 59.2 %; Nucleated Red Blood Cells % 0 %; Platelet Count 213 10^3/cmm (130-400); Red Blood Count 3.98 10^6/uL (4.1-5.3); Red Cell Distribution Width 13.1 % (12.1-15.1); White Blood Count 3.5 10^3/uL (4.0-10.0)
[2021-02-05] MEDS: sodium chloride 0.9% 1,000 ML 999 ML IV (10:21)
[2021-02-05 10:37] LABS: Alanine Aminotransferase 7 U/L (0-33); Albumin Level 4.2 g/dL (3.5-5.2); Alkaline Phosphatase 63 IU/L (35-105); Anion Gap 11.3 (5-19); Aspartate Amino Transferase 14 U/L (0-32); Blood Urea Nitrogen 7 mg/dL (8-23); Calcium 8.4 mg/dL (8.5-10.5); Carbon Dioxide 27 mmol/L (22-29); Chloride 103 mmol/L (98-107); Globulin 2.5 g/dL (1.3-4.6); Glomerular Filtration Rate 101.6 mL/min (90-130); Glucose 84 mg/dL (65-115); Lactate Dehydrogenase 163 U/L (135-214); Osmolality Calculated 281 mOsm/kg (285-295); Potassium 4.3 mmol/L (3.5-5.1); Sodium 137 mmol/L (136-145); Total Bilirubin 0.2 mg/dL (0.15-1.2); Total Protein 6.7 g/dL (6.6-8.7)
[2021-02-05] MEDS: HYDROmorphone 1 mg/mL INJ 1 mL 2 MG SUBCUT (11:10)
--- NOTE | 2021-02-05 19:38 | ONC FU_ITS ---
Dr. Gray Patient Follow-Up Note Patient: Alysa Acosta Unit #: [id number]: [id number] Dicatated By: Valente Gray M.D.Date of Visit:February 05, 2021 Onc Med Follow-up/Prog Note Chief Complaint: Chronic myeloid leukemia. History of Present Illness: This is a 61 year-old woman with [place] chromosome positive chronic myeloid leukemia. The leukemia was initially diagnosed in February of 2004. She had a good response to treatment with imatinib, but she did have documented relapse by bone marrow biopsy in October of 2008. She had poor tolerance for subsequent treatment with both dasatinib and nilotinib. Her repeat bone marrow aspiration/biopsy in October 2010 showed 100% cellularity, and her chromosome analysis was positive for the 9;22 translocation in all cells examined. She then began treatment with ponatinib on a clinical trial through [facility]. She had a very good clinical response, and she did seem to tolerate it well. However, in April 2014 she underwent placement of Port-A-Cath venous access device, and the procedure was complicated by a small pneumothorax. Her evaluation at that time also included CT pulmonary angiogram. It showed a left lower lobe lateral distal segmental pulmonary embolus. At that point she was admitted to the hospital on observation. She started anticoagulation with Lovenox and she stopped the ponatinib. Her subsequent clinical course was complicated by an acute drop in her hemoglobin with associated hypotension. She did require a transfusion of packed red blood cells. She was found to have a heme positive stool, and she was taken off anticoagulation. She underwent upper GI endoscopy and colonoscopy in August 2014. The upper endoscopy did show multiple ulcers in the antrum. These were not bleeding. She had been taking 150 mg of ranitidine twice daily, and at that point she started taking Protonix. She had a repeat upper GI endoscopy on 12/04/14. The only finding was some mild nonerosive gastritis in the antrum. There was no bleeding noted. Subsequent to that procedure she did restart anticoagulation with apixaban at 5 mg twice a day, and following her office visit on 12/19/14 she also restarted ponatinib at 30 mg daily. During followup there was no documented progression of her leukemia. Her quantitative PCR for BCR/abl remained undetectable or detectable at a very low level. In March 2016 she had presented to the emergency room with abdominal pain and vomiting. CT abdomen/pelvis showed distended fluid-filled loop of bowel in the right lower quadrant suspicious for volvulus, closed-loop obstruction, adhesions, or internal hernia. She was admitted to the hospital, but managed conservatively, and she did get better clinically after she was given laxatives and had multiple bowel movements. She continued treatment with ponatinib. She had subsequently continued to have ongoing problems with nausea/vomiting. She has had associated emergency room visits on 08/19/2016, on 10/24/2016, and on 11/18/2016. Repeat CT abdomen/pelvis in October 2016 showed evidence of mild jejunitis. 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 I did review that study with the radiologist, and that finding had been present on numerous prior studies. As of her follow-up visit in November 2016 her BCR/abl remained undetectable. On 02/03/2017 she presented to the emergency room again with sharp pain in the left side of her chest which was worse with deep breathing. The pain did radiate through to the back. She also was having significant abdominal pain. CT pulmonary angiogram at that time showed no evidence of pulmonary embolism. 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 There was post stenotic dilatation noted. She underwent further evaluation for the celiac artery stenosis in [place], and she then underwent surgery at [facility] on 05/26/2017. She then continued treatment with ponatinib 30 mg daily and she continued anticoagulation with apixaban 5 mg twice a day. During follow-up her quantitative PCR remained undetectable. As of October 2019 the ponatinib dosage was reduced to 15 mg daily. She has significant underlying medical problems including severe degenerative disease of the spine with chronic neck and back pain. The problem has been further aggravated by chronic, intractable migraine headaches. She also has a component of generalized pain which is felt to be consistent with fibromyalgia. She has chronic anxiety/depression. She also was found to have B12 deficiency, for which she has remained on B12 replacement. She does not smoke or drink alcohol. INTERIM HISTORY: As of 04/22/2020 her quantitative PCR for BCR/abl remained undetectable. At her follow-up visit on 07/23/2020 the quantitative PCR was detectable at the very low level, 0.008%. On her repeat study on 11/11/2020 it was undetectable. She continued the ponatinib at 15 mg daily. She is seen for a scheduled visit. She continues to complain better energy is very low, she is doing housework and yard work. Her ECOG score is 1. Appetite has not been good and for the past 2 weeks she has been having a lot of nausea/vomiting. Surprisingly, her weight is up 6 pounds since October. She does not have fever. She does have hot flashes and sweating. She has sores associated with her lower dentures. She has not had sore throat or cough. Her breathing is just so-so. She has not been having chest pain. She continues to have some abdominal pain and her bowels have been iffy . Bladder function has been okay. She has chronic pain, with the most significant lately in her lower back on the right side radiating down the back of her right leg. She has had just slight headaches. She does complain of dizziness. She has no numbness/paresthesia or other focal neurologic symptoms. She has ongoing issues with anxiety and depression. Medications: Acyclovir 1 (200 mg) Capsule Oral b.i.d., Zejfhouqeh-ENSV-Aspdtvbl 1 (50-325-40 mg) Tablet Oral four times a day, Diazepam 1 (5 mg) Tablet Oral at bedtime, Eliquis 1 (5 mg) Tablet Oral b.i.d., EQL Senna Laxative Tablet Oral t.i.d. PRN, Gabapentin (300 mg) Capsule Oral Take as Directed, HYDROmorphone HCl 1 Tablet (of 4 mg) Oral four times a day PRN, Iclusig 1 (15 mg) Tablet Oral daily, Levothyroxine Sodium 1 (50 mcg) Tablet Oral daily, Magnesium Oxide 1 (400 mg) Capsule Oral daily, Montelukast Sodium 1 (10 mg) Tablet Oral daily, Pantoprazole Sodium 1 (40 mg) Tablet, enteric coated Oral b.i.d., PONATinib HCl 15 mg (of 15 mg) Tablet Oral daily, Potassium Chloride 1 (20 meq) Tablet, controlled release Oral b.i.d., Promethazine HCl 1 (25 mg) Tablet Oral four times a day, Requip 1 (1 mg) Tablet Oral b.i.d., Sucralfate 1 (1 G) Tablet Oral four times a day, Venlafaxine HCl 1 (150 mg) Tablet Oral daily Allergies: Codeine Sulfate, elavil, Latex Exam Gloves, Morphine Sulfate, Penicillin V Potassium, and ZyPREXA. Vital Signs: Performed on February 05, 2021 10:24 Height - 63.00 in Weight - 122 lbs (HIGH) BSA - 1.57 sq.m BMI - 21.61 Temperature - 98.4 F Pulse - 72 /min Respiration - 16 /min BP - 132/84 mm(hg) O2 Sat - 98 % Pain - 10 Physical Examination: Constitutional - She appears somewhat weak generally, Eyes - Sclerae nonicteric. Conjunctivae clear, ENMT - Mouth is dry. There are no lesions noted in the oral cavity, Hematologic/Lymphatic - No cervical, clavicular, or axillary adenopathy, Respiratory - Lungs are clear with good air movement bilaterally, Cardiovascular - Heart rhythm is regular. There is no murmur, gallop, or rub noted, Abdomen - Soft. There is mild tenderness in the left upper quadrant area. Liver and spleen are not enlarged. There is no abdominal mass or ascites noted. There is no inguinal adenopathy, Back/Spine - There is tenderness in the lumbar area just to the right of the midline, Extremities - No edema, Integumentary - No skin eruption, Neurologic - No focal neurologic deficits noted. Lab/Imaging: Test performed on February 05, 2021 09:20 LDH (Total) 163 U/L Sodium 137 mmol/L Potassium 4.3 mmol/L Chloride 103 mmol/L CO2 27 mmol/L Anion Gap 11.3 BUN 7 mg/dL Creatinine 0.6 mg/dL Cr Clearance (Est) 86.0200 mL/min eGFR 101.6 mL/min Glucose 84 mg/dL Osmolality - Calculated 281 mOsm/kg Calcium 8.4 mg/dL Protein, Total 6.7 g/dL Albumin 4.2 g/dL Globulin 2.5 g/dL Bilirubin, Total 0.2 mg/dL ALT (SGPT) 7 U/L AST (SGOT) 14 U/L Alkaline Phosphatase 63 IU/L WBC 3.5 10 3/uL RBC 3.98 10 6/uL HGB 12.0 g/dL HCT 36.8 % MCV 92.5 fL MCH 30.2 pg MCHC 32.6 g/dL RDW 13.1 % Platelet Count 213 10 3/cmm MPV 10.2 fL Neutrophils 2.08 10 3/uL Lymphocytes 1.1 10 3/uL Monocytes 0.2 10 3/uL Eosinophils 0.1 10 3/uL Basophils 0.0 10 3/uL Neutrophil % 59.2 % Lymphocyte % 31.3 % Monocyte % 6.6 % Eosinophil % 1.7 % Basophils % 0.9 % NRBC % 0 % Problem List: 1. [place] chromosome positive chronic myeloid leukemia, initially diagnosed in February 2004. She has been on treatment with ponatinib after failure or intolerance to imatinib, nilotinib, and dasatinib. 2. In April 2015 she was found on [address] pulmonary angiogram to have a left lower lobe lateral distal segmental pulmonary embolus. She initially was on anticoagulation with Lovenox, but it was stopped because of an episode of acute anemia due to GI blood loss. 3. She was confirmed to have gastric ulcers by upper GI endoscopy in August 2014. She was treated with Protonix with documented healing of the ulcers by followup endoscopy in November 2014. At that point she restarted anticoagulation with apixaban. 4. Intractable migraine. 5. Degenerative disease of the spine. 6. Generalized pain disorder which is felt to be consistent with fibromyalgia. 7. She has had recurrent episodes of vomiting/dehydration, which have tended to be associated with headaches. 8. In January 2017 She had presented to the emergency room with abdominal pain. 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 She underwent surgery for the celiac artery stenosis at [facility] in [place] on 05/26/2017. Problems Addressed with this Encounter and Plan: 1. Patient with [place] chromosome positive chronic myeloid leukemia initially diagnosed in February 2004. She had progressed following initial response to imatinib. She then failed or was intolerant to subsequent treatment with nilotinib and desatinib. In December 2010 she began treatment with ponatinib on a clincal trial through [facility]. She responded well, and her disease was felt to be in remission. The ponatinib was stopped in April 2014 when she was found on CT pulmonary angiogram to have a left lower lobe lateral distal segmental pulmonary embolus. She initially was on anticoagulation with Lovenox, but it was stopped because of an episode of acute anemia due to GI blood loss. She was able to restart anticoagulation with apixaban after documented healing of the gastric ulcers, and she was then able to restart the ponatinib in December 2014. During subsequent follow-up her quantitative PCR for BCR/abl became undetectable with the ponatinib dosed at 30 mg daily. As of her follow-up in April 2020 her PCR had remained undetectable. In July 2020 the PCR was detectable at a very low level, 0.008%. However on her repeat study 11/11/2020 it was again undetectable. The current PCR study is pending. For now she continues the ponatinib at 15 mg daily. She will be scheduled for a follow-up visit in 3 months. 2. Her management has been complicated due to multiple chronic complaints which include chronic pain, headaches, and recurrent episodes of nausea/vomiting. She has generally felt better with continuation of maintenance IV fluids and antiemetics. She reports having recurrent episodes of nausea/vomiting during the past 2 weeks, but she has actually gained weight compared to her visit here in October. She will, though, be given IV hydration and IV antiemetics today and again as needed. She has been on a stable dose of opiate pain medication with hydromorphone 4 mg 4 times daily, and that will be continued. I will have her try increasing gabapentin to 600 mg 3 times daily. 3. She has B12 deficiency, and she continues replacement with monthly B12 injections. 4. She had evidence of pulmonary embolism by CT pulmonary angiogram in April 2015. She is on medication that has risk of thromboembolism, and she continues anticoagulation with apixaban 5 mg twice daily. Signed By: Valente Gray M.D. <<Signature on File>>
[2021-02-11 14:57] LABS: BCR ABL1 (IS) 0.032 (0.000); P210 BCR ALB1 DETECTED; Prior Results NG; Source serum
== END 2021-02-05 08:51 | disposition home or self-care (01) ==
LOC: ONCMED 08:52
PROVIDERS: PCP Physician Assistant Medical; Visit Provider Internal Medicine Medical Oncology
DX: C92.10 Chronic myeloid leukemia, BCR/ABL-positive, not having achieved remission (principal); I26.99 Other pulmonary embolism without acute cor pulmonale; D50.0 Iron deficiency anemia secondary to blood loss (chronic); D51.9 Vitamin B12 deficiency anemia, unspecified; G43.919 Migraine, unspecified, intractable, without status migrainosus; M47.9 Spondylosis, unspecified; M79.7 Fibromyalgia; Z79.01 Long term (current) use of anticoagulants; Z79.899 Other long term (current) drug therapy
CPT/HCPCS: 80053; 81206; 83615; 85025; 96361; 96365; 96367; 96372; 96375; 99214; C9113; J1100; J1170; J2550; J3420; J7030

== ENCOUNTER 2021-03-06 12:39 | Outpatient (CLI) | payer MEDICAID, SELFPAY ==
[2021-03-06] MEDS: pantoprazole 40 mg SDV IV (13:40)
[2021-03-06] MEDS: cyanocobalamin 1,000 mcg/mL SDV 1000 MCG SUBCUT (13:41)
[2021-03-06] MEDS: sodium chloride 0.9% 1,000 ML 999 ML IV (14:31)
[2021-03-06 14:43] VITALS: RESP 16
[2021-03-06] MEDS: HYDROmorphone 1 mg/mL INJ 1 mL 2 MG SUBCUT (14:43)
== END 2021-03-06 12:40 | disposition home or self-care (01) ==
LOC: ONCMED 12:40
PROVIDERS: PCP Physician Assistant Medical; Visit Provider Nurse Practitioner
DX: C91.10 Chronic lymphocytic leukemia of B-cell type not having achieved remission (principal); D51.9 Vitamin B12 deficiency anemia, unspecified; I26.99 Other pulmonary embolism without acute cor pulmonale; Z79.01 Long term (current) use of anticoagulants; Z79.899 Other long term (current) drug therapy
CPT/HCPCS: 96361; 96365; 96367; 96372; 96375; C9113; J1100; J1170; J2550; J3420; J7030

== ENCOUNTER 2021-04-03 12:50 | Outpatient (CLI) | payer MEDICAID, SELFPAY ==
[2021-04-03] MEDS: pantoprazole 40 mg SDV IV (13:47)
[2021-04-03] MEDS: cyanocobalamin 1,000 mcg/mL SDV 1000 MCG SUBCUT (13:51)
[2021-04-03] MEDS: sodium chloride 0.9% 1,000 ML 999 ML IV (14:48)
== END 2021-04-03 12:51 | disposition home or self-care (01) ==
LOC: ONCMED 12:51
PROVIDERS: PCP Physician Assistant Medical; Visit Provider Nurse Practitioner
DX: C91.10 Chronic lymphocytic leukemia of B-cell type not having achieved remission (principal); D50.0 Iron deficiency anemia secondary to blood loss (chronic); Z79.01 Long term (current) use of anticoagulants; Z79.899 Other long term (current) drug therapy
CPT/HCPCS: 96361; 96365; 96367; 96372; 96375; C9113; J1100; J2550; J3420; J7030

== ENCOUNTER 2021-05-01 12:57 | Outpatient (CLI) | payer MEDICAID, SELFPAY ==
[2021-05-01] MEDS: pantoprazole 40 mg SDV IV (13:26)
[2021-05-01] MEDS: cyanocobalamin 1,000 mcg/mL SDV 1000 MCG SUBCUT (13:31)
[2021-05-01 14:10] LABS: Basophils # 0.1 10^3/uL (0.0-0.1); Basophils % 1.1 %; Eosinophils # 0.1 10^3/uL (0.0-0.8); Eosinophils % 1.5 %; Hematocrit 35.7 % (37.0-47.0); Hemoglobin 11.3 g/dL (11.5-15.3); Lymphocytes # 1.4 10^3/uL (0.8-4.8); Lymphocytes % 31.6 %; Mean Corpuscular HGB Conc 31.7 g/dL (30.0-36.0); Mean Corpuscular Hemoglobin 29.6 pg (28.0-34.0); Mean Corpuscular Volume 93.5 fL (81-99); Mean Platelet Volume 10.7 fL (7.4-10.4); Monocytes # 0.3 10^3/uL (0.2-0.9); Monocytes % 7.3 %; Neutrophils # 2.65 10^3/uL (1.8-7.7); Neutrophils % 58.3 %; Nucleated Red Blood Cells % 0 %; Platelet Count 191 10^3/cmm (130-400); Red Blood Count 3.82 10^6/uL (4.1-5.3); Red Cell Distribution Width 13.2 % (12.1-15.1); White Blood Count 4.6 10^3/uL (4.0-10.0)
[2021-05-01 14:20] LABS: Alanine Aminotransferase 8 U/L (0-33); Albumin Level 4.2 g/dL (3.5-5.2); Alkaline Phosphatase 63 IU/L (35-105); Anion Gap 15.8 (5-19); Aspartate Amino Transferase 18 U/L (0-32); Blood Urea Nitrogen 9 mg/dL (8-23); Calcium 8.5 mg/dL (8.5-10.5); Carbon Dioxide 23 mmol/L (22-29); Chloride 101 mmol/L (98-107); Globulin 2.2 g/dL (1.3-4.6); Glomerular Filtration Rate 125.4 mL/min (90-130); Glucose 64 mg/dL (65-115); Lactate Dehydrogenase 185 U/L (135-214); Osmolality Calculated 279 mOsm/kg (285-295); Potassium 3.8 mmol/L (3.5-5.1); Sodium 136 mmol/L (136-145); Total Bilirubin 0.3 mg/dL (0.15-1.2); Total Protein 6.4 g/dL (6.6-8.7)
[2021-05-01] MEDS: sodium chloride 0.9% 1,000 ML 999 ML IV (14:20)
[2021-05-06 15:48] LABS: BCR ABL1 (IS) 0.004 (0.000); P210 BCR ALB1 DETECTED; Prior Results NG; Source blood
== END 2021-05-01 12:58 | disposition home or self-care (01) ==
LOC: ONCMED 12:58
PROVIDERS: PCP Physician Assistant Medical; Visit Provider Internal Medicine Medical Oncology
DX: C92.10 Chronic myeloid leukemia, BCR/ABL-positive, not having achieved remission (principal); D50.0 Iron deficiency anemia secondary to blood loss (chronic); D51.9 Vitamin B12 deficiency anemia, unspecified; Z79.899 Other long term (current) drug therapy
CPT/HCPCS: 80053; 81206; 83615; 85025; 96361; 96365; 96367; 96372; 96375; C9113; J1100; J2550; J3420; J7030

== ENCOUNTER 2021-06-03 13:00 | Outpatient (CLI) | payer MEDICAID, SELFPAY ==
[2021-06-03] MEDS: sodium chloride 0.9% 1,000 ML 999 ML IV (14:04)
[2021-06-03] MEDS: pantoprazole 40 mg SDV IVP (14:04)
[2021-06-03] MEDS: cyanocobalamin 1,000 mcg/mL SDV 1000 MCG SUBCUT (14:05)
--- NOTE | 2021-06-04 07:09 | ONC FU_ITS ---
Dr. Gray Patient Follow-Up Note Patient: Alysa Acosta Unit #: [id number]: [id number] Dicatated By: Valente Gray M.D.Date of Visit:Jun 03, 2021 Onc Med Follow-up/Prog Note Chief Complaint: Chronic myeloid leukemia. History of Present Illness: This is a 61 year-old woman with Rooks chromosome positive chronic myeloid leukemia. The leukemia was initially diagnosed in February of 2004. She had a good response to treatment with imatinib, but she did have documented relapse by bone marrow biopsy in October of 2008. She had poor tolerance for subsequent treatment with both dasatinib and nilotinib. Her repeat bone marrow aspiration/biopsy in October 2010 showed 100% cellularity, and her chromosome analysis was positive for the 9;22 translocation in all cells examined. She then began treatment with ponatinib on a clinical trial through [facility]. She had a very good clinical response, and she did seem to tolerate it well. However, in April 2014 she underwent placement of Port-A-Cath venous access device, and the procedure was complicated by a small pneumothorax. Her evaluation at that time also included CT pulmonary angiogram. It showed a left lower lobe lateral distal segmental pulmonary embolus. At that point she was admitted to the hospital on observation. She started anticoagulation with Lovenox and she stopped the ponatinib. Her subsequent clinical course was complicated by an acute drop in her hemoglobin with associated hypotension. She did require a transfusion of packed red blood cells. She was found to have a heme positive stool, and she was taken off anticoagulation. She underwent upper GI endoscopy and colonoscopy in August 2014. The upper endoscopy did show multiple ulcers in the antrum. These were not bleeding. She had been taking 150 mg of ranitidine twice daily, and at that point she started taking Protonix. She had a repeat upper GI endoscopy on 12/04/14. The only finding was some mild nonerosive gastritis in the antrum. There was no bleeding noted. Subsequent to that procedure she did restart anticoagulation with apixaban at 5 mg twice a day, and following her office visit on 12/19/14 she also restarted ponatinib at 30 mg daily. During followup there was no documented progression of her leukemia. Her quantitative PCR for BCR/abl remained undetectable or detectable at a very low level. In March 2016 she had presented to the emergency room with abdominal pain and vomiting. CT abdomen/pelvis showed distended fluid-filled loop of bowel in the right lower quadrant suspicious for volvulus, closed-loop obstruction, adhesions, or internal hernia. She was admitted to the hospital, but managed conservatively, and she did get better clinically after she was given laxatives and had multiple bowel movements. She continued treatment with ponatinib. She had subsequently continued to have ongoing problems with nausea/vomiting. She has had associated emergency room visits on 08/19/2016, on 10/24/2016, and on 11/18/2016. Repeat CT abdomen/pelvis in October 2016 showed evidence of mild jejunitis. 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 I did review that study with the radiologist, and that finding had been present on numerous prior studies. As of her follow-up visit in November 2016 her BCR/abl remained undetectable. On 02/03/2017 she presented to the emergency room again with sharp pain in the left side of her chest which was worse with deep breathing. The pain did radiate through to the back. She also was having significant abdominal pain. CT pulmonary angiogram at that time showed no evidence of pulmonary embolism. 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 There was post stenotic dilatation noted. She underwent further evaluation for the celiac artery stenosis in [place], and she then underwent surgery at [facility] on 05/26/2017. She then continued treatment with ponatinib 30 mg daily and she continued anticoagulation with apixaban 5 mg twice a day. During follow-up her quantitative PCR remained undetectable. As of October 2019 the ponatinib dosage was reduced to 15 mg daily. She has significant underlying medical problems including severe degenerative disease of the spine with chronic neck and back pain. The problem has been further aggravated by chronic, intractable migraine headaches. She also has a component of generalized pain which is felt to be consistent with fibromyalgia. She has chronic anxiety/depression. She also was found to have B12 deficiency, for which she has remained on B12 replacement. She does not smoke or drink alcohol. INTERIM HISTORY: As of 04/22/2020 her quantitative PCR for BCR/abl remained undetectable. At her follow-up visit on 07/23/2020 the quantitative PCR was detectable at the very low level, 0.008%. On her repeat study on 11/11/2020 it was undetectable. She continued the ponatinib at 15 mg daily. On her subsequent PCR studies her quantitative PCR has remained detectable at a very low titer, was recently 0.004% on 05/01/2021. She is seen for a scheduled visit. She complains that she has no energy and that she has been real tired. She says she has to push, push, and push. She is doing light work. Her appetite is average. Her weight is down a few pounds. She does not have fever, she does have hot flashes and night sweating. Her mouth has been a little sore. She does not complain of shortness of breath, cough, or chest pain. She says that for the past 3 weeks she has been really sick at her stomach. Bowel and bladder function remain adequate. She has been having a lot of pain in her lower back radiating into her right leg. She says her left shoulder is also been hurting. She is having headaches only occasionally now, about once every 2 to 3 weeks. She has some orthostatic lightheadedness. She has no numbness/paresthesia or other focal neurologic symptoms. Medications: Acyclovir 1 (200 mg) Capsule Oral b.i.d., Mfxskjxfsu-OLZQ-Zrlgxagu 1 (50-325-40 mg) Tablet Oral four times a day, Diazepam 1 (5 mg) Tablet Oral at bedtime, Eliquis 1 (5 mg) Tablet Oral b.i.d., EQL Senna Laxative Tablet Oral t.i.d. PRN, Gabapentin (300 mg) Capsule Oral Take as Directed, HYDROmorphone HCl 1 Tablet (of 4 mg) Oral four times a day PRN, Iclusig 1 (15 mg) Tablet Oral daily, Levothyroxine Sodium 1 (50 mcg) Tablet Oral daily, Magnesium Oxide 1 (400 mg) Capsule Oral daily, Montelukast Sodium 1 (10 mg) Tablet Oral daily, Pantoprazole Sodium 1 (40 mg) Tablet, enteric coated Oral b.i.d., PONATinib HCl 15 mg (of 15 mg) Tablet Oral daily, Potassium Chloride 1 (20 meq) Tablet, controlled release Oral b.i.d., Promethazine HCl 1 (25 mg) Tablet Oral four times a day, Requip 1 (1 mg) Tablet Oral b.i.d., Sucralfate 1 (1 G) Tablet Oral four times a day, Venlafaxine HCl 1 (150 mg) Tablet Oral daily Allergies: Codeine Sulfate, elavil, Latex Exam Gloves, Morphine Sulfate, Penicillin V Potassium, and ZyPREXA. Vital Signs: Performed on Jun 03, 2021 14:19 Height - 63.00 in Weight - 112.8 lbs (LOW) BSA - 1.52 sq.m BMI - 19.98 Temperature - 96.2 F (LOW) Pulse - 89 /min Respiration - 18 /min BP - 130/81 mm(hg) O2 Sat - 98 % Pain - 10 Fatigue - 8 Physical Examination: Constitutional - She looks pretty good generally, Eyes - Sclerae nonicteric. Conjunctivae clear, ENMT - Mouth is dry. There are no lesions noted in the oral cavity, Hematologic/Lymphatic - No cervical, clavicular, or axillary adenopathy, Respiratory - Lungs are clear with good air movement bilaterally, Cardiovascular - Heart rhythm is regular. There is no murmur, gallop, or rub noted, Abdomen - Soft. There is mild tenderness in the left upper quadrant area. Liver and spleen are not enlarged. There is no abdominal mass or ascites noted. There is no inguinal adenopathy, Extremities - No edema, Neurologic - No focal neurologic deficits noted. Lab/Imaging: Test performed on May 01, 2021 13:25 LDH (Total) 185 U/L Sodium 136 mmol/L Potassium 3.8 mmol/L Chloride 101 mmol/L CO2 23 mmol/L Anion Gap 15.8 BUN 9 mg/dL Creatinine 0.5 mg/dL Cr Clearance (Est) 103.2200 mL/min eGFR 125.4 mL/min Glucose 64 mg/dL Osmolality - Calculated 279 mOsm/kg Calcium 8.5 mg/dL Protein, Total 6.4 g/dL Albumin 4.2 g/dL Globulin 2.2 g/dL Bilirubin, Total 0.3 mg/dL ALT (SGPT) 8 U/L AST (SGOT) 18 U/L Alkaline Phosphatase 63 IU/L WBC 4.6 10 3/uL RBC 3.82 10 6/uL HGB 11.3 g/dL HCT 35.7 % MCV 93.5 fL MCH 29.6 pg MCHC 31.7 g/dL RDW 13.2 % Platelet Count 191 10 3/cmm MPV 10.7 fL Neutrophils 2.65 10 3/uL Lymphocytes 1.4 10 3/uL Monocytes 0.3 10 3/uL Eosinophils 0.1 10 3/uL Basophils 0.1 10 3/uL Neutrophil % 58.3 % Lymphocyte % 31.6 % Monocyte % 7.3 % Eosinophil % 1.5 % Basophils % 1.1 % NRBC % 0 % BCR/ABL Source blood BCR/ABL Previous Quant NG Problem List: 1. Rooks chromosome positive chronic myeloid leukemia, initially diagnosed in February 2004. She has been on treatment with ponatinib after failure or intolerance to imatinib, nilotinib, and dasatinib. 2. In April 2015 she was found on [address] pulmonary angiogram to have a left lower lobe lateral distal segmental pulmonary embolus. She initially was on anticoagulation with Lovenox, but it was stopped because of an episode of acute anemia due to GI blood loss. 3. She was confirmed to have gastric ulcers by upper GI endoscopy in August 2014. She was treated with Protonix with documented healing of the ulcers by followup endoscopy in November 2014. At that point she restarted anticoagulation with apixaban. 4. Intractable migraine. 5. Degenerative disease of the spine. 6. Generalized pain disorder which is felt to be consistent with fibromyalgia. 7. She has had recurrent episodes of vomiting/dehydration, which have tended to be associated with headaches. 8. In January 2017 She had presented to the emergency room with abdominal pain. 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 She underwent surgery for the celiac artery stenosis at [facility] in [place] on 05/26/2017. Problems Addressed with this Encounter and Plan: 1. Patient with Rooks chromosome positive chronic myeloid leukemia initially diagnosed in February 2004. She had progressed following initial response to imatinib. She then failed or was intolerant to subsequent treatment with nilotinib and desatinib. In December 2010 she began treatment with ponatinib on a clincal trial through [facility]. She responded well, and her disease was felt to be in remission. The ponatinib was stopped in April 2014 when she was found on CT pulmonary angiogram to have a left lower lobe lateral distal segmental pulmonary embolus. She initially was on anticoagulation with Lovenox, but it was stopped because of an episode of acute anemia due to GI blood loss. She was able to restart anticoagulation with apixaban after documented healing of the gastric ulcers, and she was then able to restart the ponatinib in December 2014. During subsequent follow-up her quantitative PCR for BCR/abl became undetectable with the ponatinib dosed at 30 mg daily. As of her follow-up in April 2020 her PCR had remained undetectable. In July 2020 the PCR was detectable at a very low level, 0.008%. However on her repeat study 11/11/2020 it was again undetectable. On her subsequent studies the quantitative PCR remained detectable at a very low titer, most recently 0.004% on 05/01/2021. As such, she continues the ponatinib at 15 mg daily. She will be scheduled for a follow-up visit in 2 months. 2. Her management has been complicated due to multiple chronic complaints which include chronic pain, headaches, and recurrent episodes of nausea/vomiting. She has generally felt better with continuation of maintenance IV fluids and antiemetics. She reports having recurrent episodes of nausea/vomiting during the past 2 weeks, but she has actually gained weight compared to her visit here in October. She will, though, be given IV hydration and IV antiemetics today and again as needed. She has been on a stable dose of opiate pain medication with hydromorphone 4 mg 4 times daily, and that will be continued. Her other medications also remain the same. 3. She has B12 deficiency, and she continues replacement with monthly B12 injections. 4. She had evidence of pulmonary embolism by CT pulmonary angiogram in April 2015. She is on medication that has risk of thromboembolism, and she continues anticoagulation with apixaban 5 mg twice daily. Signed By: Valente Gray M.D. <<Signature on File>>
== END 2021-06-03 13:01 | disposition home or self-care (01) ==
LOC: ONCMED 13:04
PROVIDERS: PCP Physician Assistant Medical; Visit Provider Internal Medicine Medical Oncology
DX: C92.11 Chronic myeloid leukemia, BCR/ABL-positive, in remission (principal); R11.2 Nausea with vomiting, unspecified; G43.919 Migraine, unspecified, intractable, without status migrainosus; M47.9 Spondylosis, unspecified; E53.8 Deficiency of other specified B group vitamins; G89.29 Other chronic pain; Z86.711 Personal history of pulmonary embolism; Z79.01 Long term (current) use of anticoagulants; Z79.891 Long term (current) use of opiate analgesic; Z79.899 Other long term (current) drug therapy
CPT/HCPCS: 96361; 96365; 96367; 96372; 96375; 99214; C9113; J1100; J2550; J3420; J7030

== ENCOUNTER 2021-07-03 11:09 | Outpatient (CLI) | payer MEDICAID, SELFPAY ==
[2021-07-03] MEDS: sodium chloride 0.9% 1,000 ML 999 ML IV (12:07)
[2021-07-03] MEDS: pantoprazole 40 mg SDV IV (12:07)
[2021-07-03] MEDS: cyanocobalamin 1,000 mcg/mL SDV 1000 MCG SUBCUT (12:10)
== END 2021-07-03 11:10 | disposition home or self-care (01) ==
LOC: ONCMED 11:11
PROVIDERS: PCP Physician Assistant Medical; Visit Provider Internal Medicine Medical Oncology
DX: C92.10 Chronic myeloid leukemia, BCR/ABL-positive, not having achieved remission (principal); D50.0 Iron deficiency anemia secondary to blood loss (chronic); D51.9 Vitamin B12 deficiency anemia, unspecified; Z79.899 Other long term (current) drug therapy
CPT/HCPCS: 96361; 96365; 96367; 96372; 96375; C9113; J1100; J2550; J3420; J7030

== ENCOUNTER 2021-08-18 11:52 | Outpatient (CLI) | payer MEDICAID, SELFPAY ==
[2021-08-18 12:38] LABS: Basophils # 0.1 10^3/uL (0.0-0.1); Basophils % 0.9 %; Eosinophils # 0.1 10^3/uL (0.0-0.8); Eosinophils % 1.3 %; Hematocrit 35.8 % (37.0-47.0); Lymphocytes # 1.6 10^3/uL (0.8-4.8); Lymphocytes % 30.1 %; Mean Corpuscular HGB Conc 33.5 g/dL (30.0-36.0); Mean Corpuscular Hemoglobin 30.2 pg (28.0-34.0); Mean Corpuscular Volume 89.9 fl (81-99); Mean Platelet Volume 10.9 fL (7.4-10.4); Monocytes # 0.3 10^3/uL (0.2-0.9); Monocytes % 5.3 %; Neutrophils # 3.29 10^3/uL (1.8-7.7); Nucleated Red Blood Cells % 0 %; Platelet Count 173 10^3/cmm (130-400); Red Blood Count 3.98 10^6/uL (4.1-5.3); Red Cell Distribution Width 12.8 % (12.1-15.1); White Blood Count 5.3 10^3/uL (4.0-10.0)
[2021-08-18 13:12] LABS: Alanine Aminotransferase 7 U/L (0-33); Albumin Level 4.2 g/dL (3.5-5.2); Alkaline Phosphatase 71 IU/L (35-105); Anion Gap 15.2 (5-19); Aspartate Amino Transferase 14 U/L (0-32); Blood Urea Nitrogen 12 mg/dL (8-23); Calcium 8.6 mg/dL (8.5-10.5); Carbon Dioxide 23 mmol/L (22-29); Chloride 103 mmol/L (98-107); Globulin 2.2 g/dL (1.3-4.6); Glomerular Filtration Rate 101.6 mL/min (90-130); Glucose 81 mg/dL (65-115); Lactate Dehydrogenase 191 U/L (135-214); Osmolality Calculated 283 mOsm/kg (285-295); Potassium 4.2 mmol/L (3.5-5.1); Sodium 137 mmol/L (136-145); Total Bilirubin 0.2 mg/dL (0.15-1.2); Total Protein 6.4 g/dL (6.6-8.7)
[2021-08-18] MEDS: sodium chloride 0.9% 1,000 ML 999 ML IV (13:50)
[2021-08-18] MEDS: sodium chloride 0.9% 250 ML 75 ML IV (13:50)
[2021-08-18] MEDS: cyanocobalamin 1,000 mcg/mL SDV 1000 MCG SUBCUT (14:35)
[2021-08-18] MEDS: pantoprazole 40 mg SDV IV (14:36)
[2021-08-18] MEDS: HYDROmorphone 1 mg/mL INJ 1 mL 2 MG SUBCUT (15:02)
[2021-08-22 16:18] LABS: BCR ABL1 (IS) 0.012 (0.000); P210 BCR ALB1 DETECTED; Prior Results NG; Source blood
--- NOTE | 2021-08-22 19:26 | ONC FU_ITS ---
Dr. Gray Patient Follow-Up Note Patient: Alysa Acosta Unit #: [id number]: 1960 Dicatated By: Valente Gray M.D.Date of Visit:Aug 18, 2021 Onc Med Follow-up/Prog Note Chief Complaint: Chronic myeloid leukemia. History of Present Illness: This is a 61 year-old woman with Ripley chromosome positive chronic myeloid leukemia. The leukemia was initially diagnosed in February of 2004. She had a good response to treatment with imatinib, but she did have documented relapse by bone marrow biopsy in October of 2008. She had poor tolerance for subsequent treatment with both dasatinib and nilotinib. Her repeat bone marrow aspiration/biopsy in October 2010 showed 100% cellularity, and her chromosome analysis was positive for the 9;22 translocation in all cells examined. She then began treatment with ponatinib on a clinical trial through [facility]. She had a very good clinical response, and she did seem to tolerate it well. However, in April 2014 she underwent placement of Port-A-Cath venous access device, and the procedure was complicated by a small pneumothorax. Her evaluation at that time also included CT pulmonary angiogram. It showed a left lower lobe lateral distal segmental pulmonary embolus. At that point she was admitted to the hospital on observation. She started anticoagulation with Lovenox and she stopped the ponatinib. Her subsequent clinical course was complicated by an acute drop in her hemoglobin with associated hypotension. She did require a transfusion of packed red blood cells. She was found to have a heme positive stool, and she was taken off anticoagulation. She underwent upper GI endoscopy and colonoscopy in August 2014. The upper endoscopy did show multiple ulcers in the antrum. These were not bleeding. She had been taking 150 mg of ranitidine twice daily, and at that point she started taking Protonix. She had a repeat upper GI endoscopy on 12/04/14. The only finding was some mild nonerosive gastritis in the antrum. There was no bleeding noted. Subsequent to that procedure she did restart anticoagulation with apixaban at 5 mg twice a day, and following her office visit on 12/19/14 she also restarted ponatinib at 30 mg daily. During followup there was no documented progression of her leukemia. Her quantitative PCR for BCR/abl remained undetectable or detectable at a very low level. In March 2016 she had presented to the emergency room with abdominal pain and vomiting. CT abdomen/pelvis showed distended fluid-filled loop of bowel in the right lower quadrant suspicious for volvulus, closed-loop obstruction, adhesions, or internal hernia. She was admitted to the hospital, but managed conservatively, and she did get better clinically after she was given laxatives and had multiple bowel movements. She continued treatment with ponatinib. She had subsequently continued to have ongoing problems with nausea/vomiting. She has had associated emergency room visits on 08/19/2016, on 10/24/2016, and on 11/18/2016. Repeat CT abdomen/pelvis in October 2016 showed evidence of mild jejunitis. 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 I did review that study with the radiologist, and that finding had been present on numerous prior studies. As of her follow-up visit in November 2016 her BCR/abl remained undetectable. On 02/03/2017 she presented to the emergency room again with sharp pain in the left side of her chest which was worse with deep breathing. The pain did radiate through to the back. She also was having significant abdominal pain. CT pulmonary angiogram at that time showed no evidence of pulmonary embolism. 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 There was post stenotic dilatation noted. She underwent further evaluation for the celiac artery stenosis in [place], and she then underwent surgery at [facility] on 05/26/2017. She then continued treatment with ponatinib 30 mg daily and she continued anticoagulation with apixaban 5 mg twice a day. During follow-up her quantitative PCR remained undetectable. As of October 2019 the ponatinib dosage was reduced to 15 mg daily. She has significant underlying medical problems including severe degenerative disease of the spine with chronic neck and back pain. The problem has been further aggravated by chronic, intractable migraine headaches. She also has a component of generalized pain which is felt to be consistent with fibromyalgia. She has chronic anxiety/depression. She also was found to have B12 deficiency, for which she has remained on B12 replacement. She does not smoke or drink alcohol. INTERIM HISTORY: As of 04/22/2020 her quantitative PCR for BCR/abl remained undetectable. At her follow-up visit on 07/23/2020 the quantitative PCR was detectable at the very low level, 0.008%. On her repeat study on 11/11/2020 it was undetectable. She continued the ponatinib at 15 mg daily. On her subsequent PCR studies her quantitative PCR has remained detectable at a very low titer. She is seen for a scheduled visit. She complains that she does not have a lot of energy. Overall she has been feeling really blah. She is still doing some light work at home. ECOG score is 1. Her appetite is so-so. She has not had fever. She does have hot flashes and sweating. She has been having sinus drainage. She has not had sore mouth or throat, and she does not complain of cough. She has not been having shortness of breath or chest pain. She does have a lot of nausea and she has been having acid reflux. Bowel function has been okay. She recently had pain in her mid to lower abdomen on the right side, but it lasted only 1 day. She has no complaints. She continues to have pain in her lower back radiating into both legs. She has stiffness in her neck, but not much pain. Recently she has been having bad headache again. She has no focal neurologic symptoms. Medications: Acyclovir 1 (200 mg) Capsule Oral b.i.d., [id number] 1 (50-325-40 mg) Tablet Oral four times a day, Diazepam 1 (5 mg) Tablet Oral at bedtime, Eliquis 1 (5 mg) Tablet Oral b.i.d., EQL Senna Laxative Tablet Oral t.i.d. PRN, Gabapentin (300 mg) Capsule Oral Take as Directed, HYDROmorphone HCl 1 Tablet (of 4 mg) Oral four times a day PRN, Iclusig 1 (15 mg) Tablet Oral daily, Levothyroxine Sodium 1 (50 mcg) Tablet Oral daily, Magnesium Oxide 1 (400 mg) Capsule Oral daily, Montelukast Sodium 1 (10 mg) Tablet Oral daily, Pantoprazole Sodium 1 (40 mg) Tablet, enteric coated Oral b.i.d., PONATinib HCl 15 mg (of 15 mg) Tablet Oral daily, Potassium Chloride 1 (20 meq) Tablet, controlled release Oral b.i.d., Promethazine HCl 1 (25 mg) Tablet Oral four times a day, Requip 1 (1 mg) Tablet Oral b.i.d., Sucralfate 1 (1 G) Tablet Oral four times a day, Venlafaxine HCl 1 (150 mg) Tablet Oral daily Allergies: Codeine Sulfate, elavil, Latex Exam Gloves, Morphine Sulfate, Penicillin V Potassium, and ZyPREXA. Vital Signs: Performed on Aug 18, 2021 13:33 Height - 63.00 in Weight - 117.6 lbs (HIGH) BSA - 1.54 sq.m BMI - 20.83 Temperature - 97.3 F (LOW) Pulse - 77 /min Respiration - 16 /min BP - 109/73 mm(hg) O2 Sat - 98 % Pain - 10 Fatigue - 10 Physical Examination: Constitutional - She looks pretty good generally, Eyes - Sclerae nonicteric. Conjunctivae clear, ENMT - Mouth is dry. There are no lesions noted in the oral cavity, Hematologic/Lymphatic - No cervical, clavicular, or axillary adenopathy, Respiratory - Lungs are clear with good air movement bilaterally, Cardiovascular - Heart rhythm is regular. There is no murmur, gallop, or rub noted, Abdomen - Soft. Liver and spleen are not enlarged. There is no abdominal mass or ascites noted. There is no inguinal adenopathy, Extremities - No edema, Neurologic - No focal neurologic deficits noted. Lab/Imaging: Test performed on Aug 18, 2021 12:13 LDH (Total) 191 U/L Sodium 137 mmol/L Potassium 4.2 mmol/L Chloride 103 mmol/L CO2 23 mmol/L Anion Gap 15.2 BUN 12 mg/dL Creatinine 0.6 mg/dL Cr Clearance (Est) 82.92 mL/min eGFR 101.6 mL/min Glucose 81 mg/dL Osmolality - Calculated 283 mOsm/kg Calcium 8.6 mg/dL Protein, Total 6.4 g/dL Albumin 4.2 g/dL Globulin 2.2 g/dL Bilirubin, Total 0.2 mg/dL ALT (SGPT) 7 U/L AST (SGOT) 14 U/L Alkaline Phosphatase 71 IU/L WBC 5.3 10 3/uL RBC 3.98 10 6/uL HGB 12.0 g/dL HCT 35.8 % MCV 89.9 fl MCH 30.2 pg MCHC 33.5 g/dL RDW 12.8 % Platelet Count 173 10 3/cmm MPV 10.9 fL Neutrophils 3.29 10 3/uL Lymphocytes 1.6 10 3/uL Monocytes 0.3 10 3/uL Eosinophils 0.1 10 3/uL Basophils 0.1 10 3/uL Neutrophil % 62.0 % Lymphocyte % 30.1 % Monocyte % 5.3 % Eosinophil % 1.3 % Basophils % 0.9 % NRBC % 0 % BCR/ABL Source blood BCR/ABL Previous Quant NG Problem List: 1. Ripley chromosome positive chronic myeloid leukemia, initially diagnosed in February 2004. She has been on treatment with ponatinib after failure or intolerance to imatinib, nilotinib, and dasatinib. 2. In April 2015 she was found [address] pulmonary angiogram to have a left lower lobe lateral distal segmental pulmonary embolus. She initially was on anticoagulation with Lovenox, but it was stopped because of an episode of acute anemia due to GI blood loss. 3. She was confirmed to have gastric ulcers by upper GI endoscopy in August 2014. She was treated with Protonix with documented healing of the ulcers by followup endoscopy in November 2014. At that point she restarted anticoagulation with apixaban. 4. Intractable migraine. 5. Degenerative disease of the spine. 6. Generalized pain disorder which is felt to be consistent with fibromyalgia. 7. She has had recurrent episodes of vomiting/dehydration, which have tended to be associated with headaches. 8. In January 2017 She had presented to the emergency room with abdominal pain. 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 She underwent surgery for the celiac artery stenosis at [facility] in [place] on 05/26/2017. Problems Addressed with this Encounter and Plan: 1. Patient with Ripley chromosome positive chronic myeloid leukemia initially diagnosed in February 2004. She had progressed following initial response to imatinib. She then failed or was intolerant to subsequent treatment with nilotinib and desatinib. In December 2010 she began treatment with ponatinib on a clincal trial through [facility]. She responded well, and her disease was felt to be in remission. The ponatinib was stopped in April 2014 when she was found on CT pulmonary angiogram to have a left lower lobe lateral distal segmental pulmonary embolus. She initially was on anticoagulation with Lovenox, but it was stopped because of an episode of acute anemia due to GI blood loss. She was able to restart anticoagulation with apixaban after documented healing of the gastric ulcers, and she was then able to restart the ponatinib in December 2014. During subsequent follow-up her quantitative PCR for BCR/abl became undetectable with the ponatinib dosed at 30 mg daily. As of her follow-up in April 2020 her PCR had remained undetectable. In July 2020 the PCR was detectable at a very low level, 0.008%. However on her repeat study 11/11/2020 it was again undetectable. On her subsequent studies the quantitative PCR remained detectable at a very low titer, 0.004% on 05/01/2021. The current result is pending. For now she continues the ponatinib at 15 mg daily. She will be scheduled for a follow-up visit in 3 months. 2. Her management has been complicated due to multiple chronic complaints which include chronic pain, headaches, and recurrent episodes of nausea/vomiting. She has generally felt better with continuation of maintenance IV fluids and antiemetics. She reports having recurrent episodes of nausea/vomiting during the past 2 weeks, but she has actually gained weight compared to her visit here in October. She will, though, be given IV hydration and IV antiemetics today and again as needed. She has been on a stable dose of opiate pain medication with hydromorphone 4 mg 4 times daily, and that will be continued. Her other medications also remain the same. 3. She has B12 deficiency, and she continues replacement with monthly B12 injections. 4. She had evidence of pulmonary embolism by CT pulmonary angiogram in April 2015. She is on medication that has risk of thromboembolism, and she continues anticoagulation with apixaban 5 mg twice daily. Signed By: Valente Gray M.D. <<Signature on File>>
== END 2021-08-18 11:53 | disposition home or self-care (01) ==
LOC: ONCMED 11:54
PROVIDERS: PCP Physician Assistant Medical; Visit Provider Internal Medicine Medical Oncology
DX: C92.10 Chronic myeloid leukemia, BCR/ABL-positive, not having achieved remission (principal); D50.0 Iron deficiency anemia secondary to blood loss (chronic); G43.819 Other migraine, intractable, without status migrainosus; M47.9 Spondylosis, unspecified; G89.4 Chronic pain syndrome; E86.0 Dehydration; G43.A1 Cyclical vomiting, in migraine, intractable; Z86.711 Personal history of pulmonary embolism; Z79.899 Other long term (current) drug therapy
CPT/HCPCS: 36591; 80053; 81206; 83615; 85025; 90471; 90686; 96361; 96365; 96367; 96372; 96375; 99215; C9113; J1100; J1170; J2550; J3420; J7030; J7050

== ENCOUNTER 2021-09-15 13:57 | Outpatient (CLI) | payer MEDICAID, SELFPAY ==
[2021-09-15] MEDS: pantoprazole 40 mg SDV IVP (14:30)
[2021-09-15] MEDS: cyanocobalamin 1,000 mcg/mL SDV 1000 MCG SUBCUT (14:40)
[2021-09-15] MEDS: sodium chloride 0.9% 500 ML 999 ML IV (14:40)
== END 2021-09-15 13:58 | disposition home or self-care (01) ==
LOC: ONCMED 13:59
PROVIDERS: PCP Physician Assistant Medical; Visit Provider Internal Medicine Medical Oncology
DX: C92.10 Chronic myeloid leukemia, BCR/ABL-positive, not having achieved remission (principal); I26.99 Other pulmonary embolism without acute cor pulmonale; Z79.01 Long term (current) use of anticoagulants; D50.0 Iron deficiency anemia secondary to blood loss (chronic); K25.7 Chronic gastric ulcer without hemorrhage or perforation; Z79.899 Other long term (current) drug therapy
CPT/HCPCS: 96361; 96365; 96367; 96372; 96375; C9113; J1100; J2550; J3420; J7030

== ENCOUNTER 2021-10-14 13:13 | Outpatient (CLI) | payer MEDICAID, SELFPAY ==
[2021-10-14] MEDS: pantoprazole 40 mg SDV IV (14:20)
[2021-10-14] MEDS: cyanocobalamin 1,000 mcg/mL SDV 1000 MCG SUBCUT (14:23)
[2021-10-14] MEDS: sodium chloride 0.9% 1,000 ML 999 ML IV (14:39)
[2021-10-14] MEDS: promethazine 25 mg/mL SDV 1 mL IM (14:39)
== END 2021-10-14 13:14 | disposition home or self-care (01) ==
LOC: ONCMED 13:16
PROVIDERS: PCP Physician Assistant Medical; Visit Provider Internal Medicine Medical Oncology
DX: C92.10 Chronic myeloid leukemia, BCR/ABL-positive, not having achieved remission (principal); I26.99 Other pulmonary embolism without acute cor pulmonale; Z79.01 Long term (current) use of anticoagulants; D51.9 Vitamin B12 deficiency anemia, unspecified; Z79.899 Other long term (current) drug therapy
CPT/HCPCS: 96361; 96365; 96367; 96372; 96375; C9113; J1100; J2550; J3420; J7030

== ENCOUNTER 2021-11-21 08:20 | Outpatient (CLI) | payer MEDICAID, SELFPAY ==
[2021-11-21 09:17] LABS: Basophils # 0.1 10^3/uL (0.0-0.1); Eosinophils # 0.1 10^3/uL (0.0-0.8); Eosinophils % 1.6 %; Hemoglobin 12.4 g/dL (11.5-15.3); Lymphocytes # 1.6 10^3/uL (0.8-4.8); Lymphocytes % 33.2 %; Mean Corpuscular HGB Conc 32.6 g/dL (30.0-36.0); Mean Platelet Volume 10.1 fL (7.4-10.4); Monocytes # 0.3 10^3/uL (0.2-0.9); Monocytes % 6.1 %; Neutrophils # 2.86 10^3/uL (1.8-7.7); Neutrophils % 57.9 %; Nucleated Red Blood Cells % 0 %; Platelet Count 192 10^3/cmm (130-400); Red Blood Count 4.13 10^6/uL (4.1-5.3); Red Cell Distribution Width 12.6 % (12.1-15.1); White Blood Count 4.9 10^3/uL (4.0-10.0)
[2021-11-21] MEDS: sodium chloride 0.9% 1,000 ML 999 ML IV (09:40)
[2021-11-21] MEDS: pantoprazole 40 mg SDV IV (10:08)
[2021-11-21 10:50] LABS: Alanine Aminotransferase 7 U/L (0-33); Albumin Level 4.2 g/dL (3.5-5.2); Alkaline Phosphatase 56 IU/L (35-105); Anion Gap 13.3 (5-19); Aspartate Amino Transferase 16 U/L (0-32); Blood Urea Nitrogen 10 mg/dL (8-23); Calcium 7.9 mg/dL (8.5-10.5); Carbon Dioxide 24 mmol/L (22-29); Chloride 102 mmol/L (98-107); Globulin 1.8 g/dL (1.3-4.6); Glomerular Filtration Rate 101.6 mL/min (90-130); Glucose 92 mg/dL (65-115); Osmolality Calculated 279 mOsm/kg (285-295); Potassium 4.3 mmol/L (3.5-5.1); Sodium 135 mmol/L (136-145); Total Bilirubin 0.2 mg/dL (0.15-1.2)
[2021-11-21] MEDS: HYDROcodone-acetaminophen 5-325 mg Tablet 2 TAB PO (10:50)
[2021-11-21] MEDS: cyanocobalamin 1,000 mcg/mL SDV 1000 MCG SUBCUT (11:12)
--- NOTE | 2021-11-22 22:02 | ONC FU_ITS ---
Jo Ann Angel Progress Note Patient: Alysa Acosta Unit #: [id number]: [id number] Dicatated By: Jo Ann Angel N.P.Date of Visit:Nov 21, 2021 Onc MED Follow-up/Prog Note Chief Complaint: Chronic myeloid leukemia. History of Present Illness: This is a 61 year-old woman with [place] chromosome positive chronic myeloid leukemia. The leukemia was initially diagnosed in February of 2004. She had a good response to treatment with imatinib, but she did have documented relapse by bone marrow biopsy in October of 2008. She had poor tolerance for subsequent treatment with both dasatinib and nilotinib. Her repeat bone marrow aspiration/biopsy in October 2010 showed 100% cellularity, and her chromosome analysis was positive for the 9;22 translocation in all cells examined. She then began treatment with ponatinib on a clinical trial through [facility]. She had a very good clinical response, and she did seem to tolerate it well. However, in April 2014 she underwent placement of Port-A-Cath venous access device, and the procedure was complicated by a small pneumothorax. Her evaluation at that time also included CT pulmonary angiogram. It showed a left lower lobe lateral distal segmental pulmonary embolus. At that point she was admitted to the hospital on observation. She started anticoagulation with Lovenox and she stopped the ponatinib. Her subsequent clinical course was complicated by an acute drop in her hemoglobin with associated hypotension. She did require a transfusion of packed red blood cells. She was found to have a heme positive stool, and she was taken off anticoagulation. She underwent upper GI endoscopy and colonoscopy in August 2014. The upper endoscopy did show multiple ulcers in the antrum. These were not bleeding. She had been taking 150 mg of ranitidine twice daily, and at that point she started taking Protonix. She had a repeat upper GI endoscopy on 12/04/14. The only finding was some mild nonerosive gastritis in the antrum. There was no bleeding noted. Subsequent to that procedure she did restart anticoagulation with apixaban at 5 mg twice a day, and following her office visit on 12/19/14 she also restarted ponatinib at 30 mg daily. During followup there was no documented progression of her leukemia. Her quantitative PCR for BCR/abl remained undetectable or detectable at a very low level. In March 2016 she had presented to the emergency room with abdominal pain and vomiting. CT abdomen/pelvis showed distended fluid-filled loop of bowel in the right lower quadrant suspicious for volvulus, closed-loop obstruction, adhesions, or internal hernia. She was admitted to the hospital, but managed conservatively, and she did get better clinically after she was given laxatives and had multiple bowel movements. She continued treatment with ponatinib. She had subsequently continued to have ongoing problems with nausea/vomiting. She has had associated emergency room visits on 08/19/2016, on 10/24/2016, and on 11/18/2016. Repeat CT abdomen/pelvis in October 2016 showed evidence of mild jejunitis. 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 I did review that study with the radiologist, and that finding had been present on numerous prior studies. As of her follow-up visit in November 2016 her BCR/abl remained undetectable. On 02/03/2017 she presented to the emergency room again with sharp pain in the left side of her chest which was worse with deep breathing. The pain did radiate through to the back. She also was having significant abdominal pain. CT pulmonary angiogram at that time showed no evidence of pulmonary embolism. 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 There was post stenotic dilatation noted. She underwent further evaluation for the celiac artery stenosis in [place], and she then underwent surgery at [facility] on 05/26/2017. She then continued treatment with ponatinib 30 mg daily and she continued anticoagulation with apixaban 5 mg twice a day. During follow-up her quantitative PCR remained undetectable. As of October 2019 the ponatinib dosage was reduced to 15 mg daily. She has significant underlying medical problems including severe degenerative disease of the spine with chronic neck and back pain. The problem has been further aggravated by chronic, intractable migraine headaches. She also has a component of generalized pain which is felt to be consistent with fibromyalgia. She has chronic anxiety/depression. She also was found to have B12 deficiency, for which she has remained on B12 replacement. She does not smoke or drink alcohol. INTERIM HISTORY: As of 04/22/2020 her quantitative PCR for BCR/abl remained undetectable. At her follow-up visit on 07/23/2020 the quantitative PCR was detectable at the very low level, 0.008%. On her repeat study on 11/11/2020 it was undetectable. She continued the ponatinib at 15 mg daily. On her subsequent PCR studies her quantitative PCR has remained detectable at a very low titer. She presents for follow-up. She continues to have quite a bit of fatigue but she is able to do some light housework. Her ECOG is 1. Her appetite has been fair. She denies fever, chills, night sweats. No sinus drainage or sore throat. No shortness of breath, cough, chest pain. She continues to have nausea with occasional vomiting on and off. She also has acid reflux. No diarrhea or constipation. No abdominal pain. She has chronic back pain that radiates down both legs but that is controlled with her medication. She continues to have headaches on and off which she describes as migraine. Review Of Symptoms:See above. Past Medical History: Flu vaccine in 2014 B 12 deficiency in 2007 [place] chromosome positive chronic myelogenous leukemi in 2003 (poor response,dasatinib,and nilotinib [facility]) Anxiety in 2003 Chronic migraines (following head injury at age 23) in 2003 Depression in 2003 Fibromyalgia in 2003 Past Surgical History: Excision right breast lesion Hysterectomy Right knee orthroscopic surgery Flu vaccine in 2020 - left deltoid Flu vaccine in 2019 - left deltoid Flu vaccine in 2018 - Left deltoid PrevNar vaccine in 2018 - Left deltoid Flu vaccine [id number] in 2018 Infuenza Vaccine in 2018 Flucevax in 2017 - left deltoid Endovascular repair in 2017 Flu vaccine in 2016 Fluzone in 2012 Pneumovax in 2012 Bone marrow aspiration in 2011 Bone marrow biopsy in 2011 Cervical spine surgery in 1999 - laminectomy and bone graft Appendectomy in 1966 Allergies: Codeine Sulfate, elavil, Latex Exam Gloves, Morphine Sulfate, Penicillin V Potassium, and ZyPREXA. Medications: Acyclovir 1 (200 mg) Capsule Oral b.i.d. [id number]-[id number] 1 (50-325-40 mg) Tablet Oral four times a day Diazepam 1 (5 mg) Tablet Oral at bedtime Eliquis 1 (5 mg) Tablet Oral b.i.d. EQL Senna Laxative Tablet Oral t.i.d. PRN Gabapentin (300 mg) Capsule Oral Take as Directed HYDROmorphone HCl 1 Tablet (of 4 mg) Oral four times a day PRN Iclusig 1 (15 mg) Tablet Oral daily Levothyroxine Sodium 1 (50 mcg) Tablet Oral daily Magnesium Oxide 1 (400 mg) Capsule Oral daily Montelukast Sodium 1 (10 mg) Tablet Oral daily Pantoprazole Sodium 1 (40 mg) Tablet, enteric coated Oral b.i.d. PONATinib HCl 15 mg (of 15 mg) Tablet Oral daily Potassium Chloride 1 (20 meq) Tablet, controlled release Oral b.i.d. Promethazine HCl 1 (25 mg) Tablet Oral four times a day Requip 1 (1 mg) Tablet Oral b.i.d. Sucralfate 1 (1 G) Tablet Oral four times a day Venlafaxine HCl 1 (150 mg) Tablet Oral daily Family History: Ms. Acosta's father is : cancer history consists of Kidney cancer while other medical history includes chemical poisoning,(automobile insurance claim examiner) (cause of ). She does not know if her paternal grandfather is alive: cancer history consists of Colon cancer. Ms. Acosta has 1 brother with an unknown alive status: medical history includes epilepsy. She has 1 aunt with an unknown alive status: cancer history consists of Breast cancer. 1 sister with history of grade 2 infiltrating ductal carcinoma. Social History: Ms. Acosta is and she is a disabled. Ms. Acosta has never smoked. She has no history of drinking. She has indicated exposure to the following products: chewing tobacco. Ms. Acosta reports the following support systems: lives with spouse, significant other, family, or friends, lives in own house, supportive family/friends willing to assist with needs, and adequate transportation available for expected visits. Her diet consists of regular meals. She indicates her activity level as: daily activities and regular exercise. no smoking history but chews about a can per day of chewing tobacco. Physical Examination: Performed on Nov 21, 2021 10:12: Height - 63.00 in, BSA - 0.00 sq.m, BMI - 0.00, Temperature - 99.4 F (HIGH), Pulse - 67 /min, Respiration - 16 /min, BP - 112/65 mm(hg), O2 Sat - 98 %, Pain - 8, and Fatigue - 9. Performance Status: 1 - No physically strenuous activity, but ambulatory and able to carry out light or sedentary work (e.g. office work, light house work). (ECOG) Constitutional Alert, cooperative, oriented. Mood and affect appropriate. Appears close to chronological age. Well nourished. Well developed. Head Normocephalic; no scars. Respiratory Lungs are clear to auscultation without rhonchi or wheezing. Cardiovascular Regular rate and rhythm of heart without murmurs, gallops or rubs. Abdomen Non-tender, non-distended, no masses, ascites or hepatosplenomegaly. Good bowel sounds. No guarding or rebound tenderness. Extremities No visible deformities, no cyanosis, clubbing or edema. Pulses 3+ and equal bilaterally. Psychiatric Alert and oriented times three. Coherent speech. Verbalizes understanding of our discussions today. Laboratory: Test performed on Nov 21, 2021 10:04 Sodium 135 mmol/L Potassium 4.3 mmol/L Chloride 102 mmol/L CO2 24 mmol/L Anion Gap 13.3 BUN 10 mg/dL Creatinine 0.6 mg/dL Cr Clearance (Est) 82.9200 mL/min eGFR 101.6 mL/min Glucose 92 mg/dL Osmolality - Calculated 279 mOsm/kg Calcium 7.9 mg/dL Protein, Total 6.0 g/dL Albumin 4.2 g/dL Globulin 1.8 g/dL Bilirubin, Total 0.2 mg/dL ALT (SGPT) 7 U/L AST (SGOT) 16 U/L Alkaline Phosphatase 56 IU/L Test performed on Nov 21, 2021 08:55 WBC 4.9 10 3/uL RBC 4.13 10 6/uL HGB 12.4 g/dL HCT 38.0 % MCV 92.0 fl MCH 30.0 pg MCHC 32.6 g/dL RDW 12.6 % Platelet Count 192 10 3/cmm MPV 10.1 fL Neutrophils 2.86 10 3/uL Lymphocytes 1.6 10 3/uL Monocytes 0.3 10 3/uL Eosinophils 0.1 10 3/uL Basophils 0.1 10 3/uL Neutrophil % 57.9 % Lymphocyte % 33.2 % Monocyte % 6.1 % Eosinophil % 1.6 % Basophils % 1.0 % NRBC % 0 % Test performed on Aug 18, 2021 12:13 LDH (Total) 191 U/L BCR/ABL Source blood BCR/ABL Previous Quant NG Impression: 1. [place] chromosome positive chronic myeloid leukemia, initially diagnosed in February 2004. She has been on treatment with ponatinib after failure or intolerance to imatinib, nilotinib, and dasatinib. 2. In April 2015 she was found on CT pulmonary angiogram to have a left lower lobe lateral distal segmental pulmonary embolus. She initially was on anticoagulation with Lovenox, but it was stopped because of an episode of acute anemia due to GI blood loss. 3. She was confirmed to have gastric ulcers by upper GI endoscopy in August 2014. She was treated with Protonix with documented healing of the ulcers by followup endoscopy in November 2014. At that point she restarted anticoagulation with apixaban. 4. Intractable migraine. 5. Degenerative disease of the spine. 6. Generalized pain disorder which is felt to be consistent with fibromyalgia. 7. She has had recurrent episodes of vomiting/dehydration, which have tended to be associated with headaches. 8. In January 2017 She had presented to the emergency room with abdominal pain. 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 She underwent surgery for the celiac artery stenosis at [facility] in [place] on 05/26/2017. Plan: 1. Patient with [place] chromosome positive chronic myeloid leukemia initially diagnosed in February 2004. She had progressed following initial response to imatinib. She then failed or was intolerant to subsequent treatment with nilotinib and desatinib. In December 2010 she began treatment with ponatinib on a clincal trial through [facility]. She responded well, and her disease was felt to be in remission. The ponatinib was stopped in April 2014 when she was found on CT pulmonary angiogram to have a left lower lobe lateral distal segmental pulmonary embolus. She initially was on anticoagulation with Lovenox, but it was stopped because of an episode of acute anemia due to GI blood loss. She was able to restart anticoagulation with apixaban after documented healing of the gastric ulcers, and she was then able to restart the ponatinib in December 2014. During subsequent follow-up her quantitative PCR for BCR/abl became undetectable with the ponatinib dosed at 30 mg daily. As of her follow-up in April 2020 her PCR had remained undetectable. In July 2020 the PCR was detectable at a very low level, 0.008%. However on her repeat study 11/11/2020 it was again undetectable. On her subsequent studies the quantitative PCR remained detectable at a very low titer, 0.004% on 05/01/2021. Her PCR for 0.012% on 08/18/2021. PCR for today's visit is pending. For now she continues the ponatinib at 15 mg daily. She will be scheduled for a follow-up visit in 2 months. 2. She continues to have chronic nausea and vomiting for which she receives hydration and antiemetics. She receives hydration and antiemetics monthly when she comes in for her vitamin B12 injection. She has been on a stable dose of opiate pain medication with hydromorphone 4 mg 4 times daily, and that will be continued. Her other medications also remain the same. 3. She has B12 deficiency, and she continues replacement with monthly B12 injections. 4. She had evidence of pulmonary embolism by CT pulmonary angiogram in April 2015. She is on medication that has risk of thromboembolism, and she continues anticoagulation with apixaban 5 mg twice daily. Signed By: Jo Ann Angel N.P. <<Signature on File>>
[2021-11-26 22:57] LABS: P210 BCR ALB1 DETECTED; Prior Results NG; Source blood
== END 2021-11-21 08:21 | disposition home or self-care (01) ==
PROVIDERS: PCP Physician Assistant Medical; Visit Provider Internal Medicine Medical Oncology
DX: C92.10 Chronic myeloid leukemia, BCR/ABL-positive, not having achieved remission (principal); G43.819 Other migraine, intractable, without status migrainosus; M47.9 Spondylosis, unspecified; F45.41 Pain disorder exclusively related to psychological factors; Z86.711 Personal history of pulmonary embolism; Z79.01 Long term (current) use of anticoagulants; Z87.11 Personal history of peptic ulcer disease; Z79.899 Other long term (current) drug therapy
CPT/HCPCS: 80053; 81206; 85025; 96361; 96365; 96367; 96372; 96375; 99215; C9113; J1100; J3420; J7030

== ENCOUNTER 2021-12-22 12:57 | Outpatient (CLI) | payer MEDICAID, SELFPAY ==
[2021-12-22] MEDS: alteplase 1 mg/mL SDV 2 mL 2 MG IV (13:54)
[2021-12-22] MEDS: cyanocobalamin 1,000 mcg/mL SDV 1000 MCG SUBCUT (13:55)
[2021-12-22] MEDS: promethazine 25 mg/mL SDV 1 mL IM (13:57)
[2021-12-22] MEDS: pantoprazole 40 mg SDV IV (14:14)
[2021-12-22] MEDS: sodium chloride 0.9% 1,000 ML 999 ML IV (14:34)
== END 2021-12-22 12:58 | disposition home or self-care (01) ==
LOC: ONCMED 13:00
PROVIDERS: PCP Family Medicine; Visit Provider Internal Medicine Medical Oncology
DX: C92.11 Chronic myeloid leukemia, BCR/ABL-positive, in remission (principal); D51.9 Vitamin B12 deficiency anemia, unspecified; Z79.01 Long term (current) use of anticoagulants; Z79.52 Long term (current) use of systemic steroids; Z79.899 Other long term (current) drug therapy
CPT/HCPCS: 36593; 96360; 96365; 96367; 96372; 96375; C9113; J1100; J2550; J2997; J3420; J7030

== ENCOUNTER 2022-01-19 09:35 | Oncology outpatient (recurring) (ONCR) | payer MEDICAID, SELFPAY ==
[2022-01-19] MEDS: promethazine 25 mg/mL SDV 1 mL IM (09:58)
[2022-01-19] MEDS: pantoprazole 40 mg SDV IVP (09:58)
[2022-01-19] MEDS: sodium chloride 0.9% 1,000 ML 999 ML IV (09:59)
[2022-01-19 10:06] VITALS: BP 131/73; PULSE 90; RESP 18; TEMP 37.3; O2SAT 99
[2022-01-19 11:07] VITALS: RESP 18
[2022-01-19] MEDS: cyanocobalamin 1,000 mcg/mL SDV 1000 MCG SUBCUT (11:07)
[2022-01-19] MEDS: HYDROmorphone 1 mg/mL INJ 1 mL 2 MG IVP (11:07)
[2022-01-19 11:30] VITALS: BP 129/75; PULSE 92; RESP 18; TEMP 36.7; O2SAT 97
== END 2022-02-17 23:59 | disposition home or self-care (01) ==
PROVIDERS: PCP Family Medicine; Visit Provider Internal Medicine Medical Oncology
DX: C92.11 Chronic myeloid leukemia, BCR/ABL-positive, in remission (principal); I26.99 Other pulmonary embolism without acute cor pulmonale; Z79.01 Long term (current) use of anticoagulants; D51.9 Vitamin B12 deficiency anemia, unspecified; Z79.52 Long term (current) use of systemic steroids; Z79.899 Other long term (current) drug therapy
CPT/HCPCS: 96360; 96361; 96372; C9113; J1100; J1170; J2550; J3420; J7030

== ENCOUNTER 2022-03-18 09:00 | Oncology outpatient (recurring) (ONCR) | payer MEDICAID, SELFPAY ==
[2022-02-20] MEDS: alteplase 1 mg/mL SDV 2 mL 2 MG INTRACATH (10:36)
[2022-02-20] MEDS: cyanocobalamin 1,000 mcg/mL SDV 1000 MCG IM (11:05)
[2022-02-20] MEDS: dexamethasone 10 mg/mL INJ 4 MG IM (11:18)
[2022-02-20] MEDS: methylPREDNISolone (DEPO) 80 MG/ML INJ 1 mL 40 MG IM (11:21)
[2022-02-20] MEDS: sodium chloride 0.9% 500 ML 999 ML IV (11:24)
[2022-02-20] MEDS: ondansetron 2 mg/ML SDV 2 mL 8 MG IVP (11:29)
[2022-02-20 12:01] VITALS: BP 111/70; PULSE 76; RESP 18; TEMP 36.1; O2SAT 98
[2022-03-18] MEDS: sodium chloride 0.9% 1,000 ML 999 ML IV (09:16)
[2022-03-18 09:33] LABS: Basophils % 0.3 %; Eosinophils % 0.4 %; Hematocrit 38.1 % (37.0-47.0); Hemoglobin 12.5 g/dL (11.5-15.3); Lymphocytes % 15.1 %; Mean Corpuscular HGB Conc 32.8 g/dL (30.0-36.0); Mean Corpuscular Hemoglobin 30.9 pg (28.0-34.0); Mean Corpuscular Volume 94.3 fl (81-99); Mean Platelet Volume 10.6 fL (7.4-10.4); Monocytes # 0.2 10^3/uL (0.2-0.9); Monocytes % 3.4 %; Neutrophils # 5.32 10^3/uL (1.8-7.7); Neutrophils % 79.9 %; Nucleated Red Blood Cells % 0 %; Platelet Count 183 10^3/cmm (130-400); Red Blood Count 4.04 10^6/uL (4.1-5.3); Red Cell Distribution Width 13.8 % (12.1-15.1); White Blood Count 6.7 10^3/uL (4.0-10.0)
[2022-03-18 10:02] LABS: Alanine Aminotransferase 18 U/L (0-33); Albumin Level 4.4 g/dL (3.5-5.2); Alkaline Phosphatase 57 IU/L (35-105); Anion Gap 12.2 (5-19); Aspartate Amino Transferase 18 U/L (0-32); Blood Urea Nitrogen 13 mg/dL (8-23); Carbon Dioxide 28 mmol/L (22-29); Chloride 100 mmol/L (98-107); Globulin 2.5 g/dL (1.3-4.6); Glucose 97 mg/dL (65-115); Lactate Dehydrogenase 182 U/L (135-214); Osmolality Calculated 282 mOsm/kg (285-295); Potassium 4.2 mmol/L (3.5-5.1); Sodium 136 mmol/L (136-145); Total Bilirubin 0.2 mg/dL (0.15-1.2); Total Protein 6.9 g/dL (6.6-8.7)
[2022-03-18] MEDS: famotidine 20 mg/2 mL INJ IVP (12:10)
[2022-03-18] MEDS: cyanocobalamin 1,000 mcg/mL SDV 1000 MCG IM (12:11)
[2022-03-18] MEDS: dexamethasone 10 mg/mL INJ IV (12:12)
[2022-03-18 12:26] VITALS: RESP 18
[2022-03-18] MEDS: HYDROmorphone 1 mg/mL INJ 1 mL 2 MG SUBCUT (12:26)
[2022-03-18] MEDS: ondansetron 2 mg/ML SDV 2 mL 8 MG IVP (12:26)
[2022-03-18 12:31] VITALS: BP 116/69; PULSE 71; RESP 18; TEMP 37; O2SAT 97
[2022-03-21 18:33] LABS: BCR ABL1 (IS) 0.008 (0.000); P210 BCR ALB1 DETECTED; Prior Results NG; Source serum
== END 2022-03-19 23:59 | disposition home or self-care (01) ==
PROVIDERS: Nurse Practitioner Family; PCP Family Medicine; Visit Provider Internal Medicine Medical Oncology
DX: C92.11 Chronic myeloid leukemia, BCR/ABL-positive, in remission (principal); E53.8 Deficiency of other specified B group vitamins; Z86.711 Personal history of pulmonary embolism; Z79.01 Long term (current) use of anticoagulants; D64.9 Anemia, unspecified; R51.9 Headache, unspecified; M79.10 Myalgia, unspecified site; Z79.891 Long term (current) use of opiate analgesic
CPT/HCPCS: 36593; 80053; 81206; 83615; 85025; 96360; 96372; 96375; 99214; J1040; J1100; J1170; J2405; J2997; J3420; J3490; J7030; J7040

== ENCOUNTER 2022-04-15 11:15 | Oncology outpatient (recurring) (ONCR) | payer MEDICAID, SELFPAY ==
[2022-04-15 13:01] LABS: Basophils # 0.1 10^3/uL (0.0-0.1); Eosinophils # 0.2 10^3/uL (0.0-0.8); Eosinophils % 3.1 %; Hematocrit 37.8 % (37.0-47.0); Hemoglobin 12.2 g/dL (11.5-15.3); Lymphocytes # 1.3 10^3/uL (0.8-4.8); Lymphocytes % 26.3 %; Mean Corpuscular HGB Conc 32.3 g/dL (30.0-36.0); Mean Corpuscular Hemoglobin 30.7 pg (28.0-34.0); Mean Platelet Volume 10.2 fL (7.4-10.4); Monocytes # 0.3 10^3/uL (0.2-0.9); Monocytes % 5.9 %; Neutrophils # 3.22 10^3/uL (1.8-7.7); Neutrophils % 63.3 %; Nucleated Red Blood Cells % 0 %; Platelet Count 204 10^3/cmm (130-400); Red Blood Count 3.98 10^6/uL (4.1-5.3); Red Cell Distribution Width 13.3 % (12.1-15.1); White Blood Count 5.1 10^3/uL (4.0-10.0)
[2022-04-15] MEDS: dexamethasone 10 mg/mL INJ IVP (13:15)
[2022-04-15] MEDS: sodium chloride 0.9% 50 mL Bag IV (13:15)
[2022-04-15] MEDS: cyanocobalamin 1,000 mcg/mL SDV 1000 MCG SUBCUT (13:25)
[2022-04-15] MEDS: ondansetron 2 mg/ML SDV 2 mL 8 MG IVP (13:30)
[2022-04-15] MEDS: sodium chloride 0.9% 1,000 ML 999 ML IV (13:31)
[2022-04-15 13:32] LABS: Alanine Aminotransferase 11 U/L (0-33); Alkaline Phosphatase 51 IU/L (35-105); Aspartate Amino Transferase 17 U/L (0-32); Blood Urea Nitrogen 9 mg/dL (8-23); Calcium 9.1 mg/dL (8.5-10.5); Carbon Dioxide 28 mmol/L (22-29); Chloride 104 mmol/L (98-107); Globulin 2.5 g/dL (1.3-4.6); Glomerular Filtration Rate 101.3 mL/min (90-130); Glucose 84 mg/dL (65-115); Osmolality Calculated 286 mOsm/kg (285-295); Sodium 139 mmol/L (136-145); Total Bilirubin 0.2 mg/dL (0.15-1.2); Total Protein 6.5 g/dL (6.6-8.7)
[2022-04-15 13:33] LABS: Anion Gap 11.1 (5-19); Lactate Dehydrogenase 256 U/L (135-214); Potassium 4.1 mmol/L (3.5-5.1)
[2022-04-15 13:40] VITALS: BP 107/70; PULSE 73; RESP 18; TEMP 36.4; O2SAT 97
--- NOTE | 2022-04-15 15:05 | PC.NURSE ---
patient came in for the lab draw with the vitamin b 12 injection with the request to have IV hydration and nausea medication since she is feeling weak and nauseated from her trip to office, Dr Gray notified with the verbal orders for the dexamethasone and zofran with the Normal Saline.
[2022-04-20 22:48] LABS: P210 BCR ALB1 DETECTED; Prior Results NG; Source Peripheral blood
== END 2022-04-19 23:59 | disposition home or self-care (01) ==
LOC: ONCMED 11:16
PROVIDERS: PCP Family Medicine; Visit Provider Internal Medicine Medical Oncology
DX: C92.11 Chronic myeloid leukemia, BCR/ABL-positive, in remission (principal); I26.99 Other pulmonary embolism without acute cor pulmonale; Z79.01 Long term (current) use of anticoagulants; D51.9 Vitamin B12 deficiency anemia, unspecified; Z79.52 Long term (current) use of systemic steroids; Z79.899 Other long term (current) drug therapy
CPT/HCPCS: 80053; 81206; 83615; 85025; 96365; 96372; 96375; 96401; J1100; J2405; J3420; J7030

== ENCOUNTER 2022-05-14 11:09 | Oncology outpatient (recurring) (ONCR) | payer MEDICAID, SELFPAY ==
[2022-05-14 12:00] VITALS: BP 117/71; PULSE 86; RESP 18; TEMP 37.3; O2SAT 99
[2022-05-14] MEDS: ondansetron 2 mg/ML SDV 2 mL 8 MG IVP (12:15)
[2022-05-14] MEDS: cyanocobalamin 1,000 mcg/mL SDV 1000 MCG IM (12:15)
[2022-05-14 12:33] LABS: Basophils # 0.1 10^3/uL (0.0-0.1); Basophils % 1.4 %; Eosinophils # 0.1 10^3/uL (0.0-0.8); Eosinophils % 2.5 %; Hematocrit 34.7 % (37.0-47.0); Hemoglobin 11.4 g/dL (11.5-15.3); Lymphocytes # 1.4 10^3/uL (0.8-4.8); Lymphocytes % 32.3 %; Mean Corpuscular HGB Conc 32.9 g/dL (30.0-36.0); Mean Corpuscular Hemoglobin 30.2 pg (28.0-34.0); Mean Platelet Volume 10.2 fL (7.4-10.4); Monocytes # 0.3 10^3/uL (0.2-0.9); Monocytes % 5.8 %; Neutrophils % 57.8 %; Nucleated Red Blood Cells % 0 %; Platelet Count 218 10^3/cmm (130-400); Red Blood Count 3.77 10^6/uL (4.1-5.3); Red Cell Distribution Width 12.7 % (12.1-15.1); White Blood Count 4.3 10^3/uL (4.0-10.0)
[2022-05-14] MEDS: sodium chloride 0.9% 500 ML 999 ML IV (12:55)
[2022-05-14 13:02] LABS: Alanine Aminotransferase 8 U/L (0-33); Albumin Level 4.2 g/dL (3.5-5.2); Alkaline Phosphatase 61 U/L (35-105); Anion Gap 13.1 (5-19); Aspartate Amino Transferase 14 U/L (0-32); Blood Urea Nitrogen 6 mg/dL (8-23); Calcium 8.9 mg/dL (8.5-10.5); Carbon Dioxide 27 mmol/L (22-29); Chloride 101 mmol/L (98-107); Globulin 2.6 g/dL (1.3-4.6); Glomerular Filtration Rate 101.3 mL/min (90-130); Glucose 86 mg/dL (65-115); Lactate Dehydrogenase 150 U/L (135-214); Osmolality Calculated 281 mOsm/kg (285-295); Potassium 4.1 mmol/L (3.5-5.1); Sodium 137 mmol/L (136-145); Total Bilirubin 0.2 mg/dL (0.15-1.2); Total Protein 6.8 g/dL (6.6-8.7)
[2022-05-14 13:12] VITALS: RESP 17; O2SAT 99
[2022-05-14] MEDS: HYDROmorphone 1 mg/mL INJ 1 mL IVP (13:12)
== END 2022-05-20 23:59 | disposition home or self-care (01) ==
PROVIDERS: PCP Family Medicine; Visit Provider Internal Medicine Medical Oncology
DX: C92.11 Chronic myeloid leukemia, BCR/ABL-positive, in remission (principal); I26.99 Other pulmonary embolism without acute cor pulmonale; Z79.01 Long term (current) use of anticoagulants; D51.9 Vitamin B12 deficiency anemia, unspecified; Z79.52 Long term (current) use of systemic steroids; Z79.899 Other long term (current) drug therapy
CPT/HCPCS: 80053; 83615; 85025; 96365; 96372; 96375; J1170; J2405; J3420; J7040

== ENCOUNTER 2022-06-10 11:37 | Oncology outpatient (recurring) (ONCR) | payer MEDICAID, SELFPAY ==
[2022-06-10] MEDS: sodium chloride 0.9% 500 ML 999 ML IV (12:13)
[2022-06-10] MEDS: ondansetron 2 mg/ML SDV 2 mL 4 MG IVP (12:13)
[2022-06-10 12:18] LABS: Basophils # 0.1 10^3/uL (0.0-0.1); Basophils % 0.8 %; Eosinophils # 0.1 10^3/uL (0.0-0.8); Eosinophils % 2.1 %; Hematocrit 38.2 % (37.0-47.0); Hemoglobin 12.1 g/dL (11.5-15.3); Lymphocytes # 1.6 10^3/uL (0.8-4.8); Mean Corpuscular HGB Conc 31.7 g/dL (30.0-36.0); Mean Corpuscular Volume 94.6 fl (81-99); Mean Platelet Volume 10.4 fL (7.4-10.4); Monocytes # 0.3 10^3/uL (0.2-0.9); Monocytes % 5.2 %; Neutrophils # 4.03 10^3/uL (1.8-7.7); Neutrophils % 65.4 %; Nucleated Red Blood Cells % 0 %; Platelet Count 212 10^3/cmm (130-400); Red Blood Count 4.04 10^6/uL (4.1-5.3); Red Cell Distribution Width 12.8 % (12.1-15.1); White Blood Count 6.2 10^3/uL (4.0-10.0)
[2022-06-10] MEDS: cyanocobalamin 1,000 mcg/mL SDV 1000 MCG IM (12:20)
[2022-06-10 12:36] LABS: Alanine Aminotransferase 10 U/L (0-33); Albumin Level 4.2 g/dL (3.5-5.2); Alkaline Phosphatase 61 U/L (35-105); Aspartate Amino Transferase 19 U/L (0-32); Blood Urea Nitrogen 7 mg/dL (8-23); Calcium 9.4 mg/dL (8.5-10.5); Carbon Dioxide 26 mmol/L (22-29); Chloride 102 mmol/L (98-107); Globulin 2.6 g/dL (1.3-4.6); Glomerular Filtration Rate 84.8 mL/min (90-130); Glucose 93 mg/dL (65-115); Osmolality Calculated 284 mOsm/kg (285-295); Sodium 138 mmol/L (136-145); Total Bilirubin 0.3 mg/dL (0.15-1.2); Total Protein 6.8 g/dL (6.6-8.7)
[2022-06-10 12:37] LABS: Anion Gap 14.2 (5-19); Potassium 4.2 mmol/L (3.5-5.1)
[2022-06-10 14:03] VITALS: RESP 18
[2022-06-10] MEDS: HYDROmorphone 1 mg/mL INJ 1 mL 2 MG SUBCUT (14:03)
[2022-06-14 23:43] LABS: BCR ABL1 (IS) 0.004 (0.000); P210 BCR ALB1 DETECTED; Prior Results NG; Source blood
== END 2022-06-19 23:59 | disposition home or self-care (01) ==
PROVIDERS: PCP Family Medicine; Visit Provider Internal Medicine Medical Oncology
DX: C92.11 Chronic myeloid leukemia, BCR/ABL-positive, in remission (principal); R53.0 Neoplastic (malignant) related fatigue; R51.9 Headache, unspecified; M79.18 Myalgia, other site; R11.2 Nausea with vomiting, unspecified; D51.9 Vitamin B12 deficiency anemia, unspecified; I26.99 Other pulmonary embolism without acute cor pulmonale; Z79.01 Long term (current) use of anticoagulants; Z79.899 Other long term (current) drug therapy
CPT/HCPCS: 80053; 81206; 85025; 96365; 96372; 99214; J1170; J2405; J3420; J7040

== ENCOUNTER 2022-07-10 08:43 | Oncology outpatient (recurring) (ONCR) | payer MEDICAID, SELFPAY ==
[2022-07-10] MEDS: sodium chloride 0.9% 500 ML 999 ML IV (09:14)
[2022-07-10] MEDS: cyanocobalamin 1,000 mcg/mL SDV 1000 MCG IM (09:20)
[2022-07-10] MEDS: ondansetron 2 mg/ML SDV 2 mL 8 MG IVP (09:21)
[2022-07-16 22:58] LABS: BCR ABL1 (IS) 0.007 (0.000); P210 BCR ALB1 DETECTED; Prior Results NG; Source Peripheral blood
== END 2022-07-20 23:59 | disposition home or self-care (01) ==
PROVIDERS: PCP Family Medicine; Visit Provider Internal Medicine Medical Oncology
DX: C92.11 Chronic myeloid leukemia, BCR/ABL-positive, in remission (principal); Z79.899 Other long term (current) drug therapy
CPT/HCPCS: 81206; 90471; 90686; 96365; 96372; 96375; 96402; J2405; J3420; J7040

== ENCOUNTER 2022-08-10 09:58 | Oncology outpatient (recurring) (ONCR) | payer MEDICAID, SELFPAY ==
[2022-08-10 10:51] LABS: Basophils # 0.1 10^3/uL (0.0-0.1); Basophils % 1.5 %; Eosinophils # 0.1 10^3/uL (0.0-0.8); Eosinophils % 2.1 %; Hematocrit 37.1 % (37.0-47.0); Hemoglobin 12.1 g/dL (11.5-15.3); Lymphocytes # 1.2 10^3/uL (0.8-4.8); Lymphocytes % 35.8 %; Mean Corpuscular HGB Conc 32.6 g/dL (30.0-36.0); Mean Corpuscular Hemoglobin 30.9 pg (28.0-34.0); Mean Corpuscular Volume 94.6 fl (81-99); Mean Platelet Volume 9.9 fL (7.4-10.4); Monocytes # 0.2 10^3/uL (0.2-0.9); Monocytes % 6.9 %; Neutrophils # 1.79 10^3/uL (1.8-7.7); Neutrophils % 53.4 %; Nucleated Red Blood Cells % 0 %; Platelet Count 216 10^3/cmm (130-400); Red Blood Count 3.92 10^6/uL (4.1-5.3); Red Cell Distribution Width 13.2 % (12.1-15.1); White Blood Count 3.4 10^3/uL (4.0-10.0)
[2022-08-10 11:07] LABS: Alanine Aminotransferase 9 U/L (0-33); Albumin Level 4.1 g/dL (3.5-5.2); Alkaline Phosphatase 73 U/L (35-105); Anion Gap 11.1 (5-19); Aspartate Amino Transferase 13 U/L (0-32); Blood Urea Nitrogen 7 mg/dL (8-23); Calcium 9.1 mg/dL (8.5-10.5); Carbon Dioxide 27 mmol/L (22-29); Chloride 104 mmol/L (98-107); Globulin 2.6 g/dL (1.3-4.6); Glucose 93 mg/dL (65-115); Osmolality Calculated 284 mOsm/kg (285-295); Potassium 4.1 mmol/L (3.5-5.1); Sodium 138 mmol/L (136-145); Total Bilirubin 0.2 mg/dL (0.15-1.2); Total Protein 6.7 g/dL (6.6-8.7)
[2022-08-10] MEDS: sodium chloride 0.9% 500 ML 75 ML IV (11:09)
[2022-08-10] MEDS: ondansetron 2 mg/ML SDV 2 mL 8 MG IVP (11:09)
[2022-08-10] MEDS: cyanocobalamin 1,000 mcg/mL SDV 1000 MCG IM (11:10)
[2022-08-10 11:16] VITALS: BP 100/60; PULSE 79; RESP 18; TEMP 37.3; O2SAT 98
[2022-08-10 11:36] VITALS: RESP 18; O2SAT 98
[2022-08-10] MEDS: HYDROmorphone 1 mg/mL INJ 1 mL 2 MG IVP (11:36)
[2022-08-16 22:03] LABS: BCR ABL1 (IS) 0.004 (0.000); P210 BCR ALB1 DETECTED; Prior Results NOT GIVEN; Source Peripheral blood
== END 2022-08-19 23:59 | disposition home or self-care (01) ==
PROVIDERS: PCP Family Medicine; Visit Provider Internal Medicine Medical Oncology
DX: C92.11 Chronic myeloid leukemia, BCR/ABL-positive, in remission (principal); Z79.899 Other long term (current) drug therapy
CPT/HCPCS: 36591; 80053; 81206; 85025; 96372; 96374; 96375; J1170; J2405; J3420; J7040

== ENCOUNTER 2022-09-17 10:15 | Oncology outpatient (recurring) (ONCR) | payer MEDICAID, SELFPAY ==
[2022-09-17] MEDS: alteplase 1 mg/mL SDV 2 mL 2 MG INTRACATH (11:29)
[2022-09-17] MEDS: cyanocobalamin 1,000 mcg/mL SDV 1000 MCG IM (11:30)
[2022-09-17 11:34] VITALS: BP 114/77; PULSE 76; RESP 18; TEMP 36.7; O2SAT 98
[2022-09-17] MEDS: sodium chloride 0.9% 500 ML 999 ML IV (11:57)
[2022-09-17] MEDS: dexamethasone 10 mg/mL INJ IVP (11:58)
[2022-09-17] MEDS: ondansetron 2 mg/ML SDV 2 mL 4 MG IVP (11:58)
[2022-09-17 12:41] VITALS: BP 113/70; PULSE 70; RESP 16; TEMP 36.4; O2SAT 99
[2022-09-21 19:09] LABS: BCR ABL1 (IS) 0.004 (0.000); P210 BCR ALB1 DETECTED; Prior Results NG; Source Peripheral blood
== END 2022-09-19 23:59 | disposition home or self-care (01) ==
LOC: ONCMED 10:16
PROVIDERS: PCP Family Medicine; Visit Provider Internal Medicine Medical Oncology
DX: C92.11 Chronic myeloid leukemia, BCR/ABL-positive, in remission (principal); Z79.899 Other long term (current) drug therapy; Z79.52 Long term (current) use of systemic steroids
CPT/HCPCS: 81206; 96365; 96366; 96372; 96375; J1100; J2405; J2997; J3420; J7040

== ENCOUNTER 2022-10-12 12:04 | Oncology outpatient (recurring) (ONCR) | payer MEDICAID, SELFPAY ==
[2022-10-12] MEDS: sodium chloride 0.9% 500 ML 999 ML IV (12:55)
[2022-10-12] MEDS: ondansetron 2 mg/ML SDV 2 mL 8 MG IVP (12:56)
[2022-10-12 13:04] LABS: Basophils % 1.1 %; Eosinophils # 0.1 10^3/uL (0.0-0.8); Eosinophils % 1.9 %; Hematocrit 35.7 % (37.0-47.0); Hemoglobin 11.3 g/dL (11.5-15.3); Lymphocytes # 1.4 10^3/uL (0.8-4.8); Lymphocytes % 36.8 %; Mean Corpuscular HGB Conc 31.7 g/dL (30.0-36.0); Mean Corpuscular Hemoglobin 29.4 pg (28.0-34.0); Mean Platelet Volume 10.7 fL (7.4-10.4); Monocytes # 0.3 10^3/uL (0.2-0.9); Monocytes % 7.2 %; Neutrophils # 1.98 10^3/uL (1.8-7.7); Neutrophils % 52.7 %; Nucleated Red Blood Cells % 0 %; Platelet Count 181 10^3/cmm (130-400); Red Blood Count 3.84 10^6/uL (4.1-5.3); Red Cell Distribution Width 12.9 % (12.1-15.1); White Blood Count 3.8 10^3/uL (4.0-10.0)
[2022-10-12 13:21] LABS: Alanine Aminotransferase 6 U/L (0-33); Albumin Level 4.5 g/dL (3.5-5.2); Alkaline Phosphatase 67 U/L (35-105); Anion Gap 12.9 (5-19); Aspartate Amino Transferase 14 U/L (0-32); Blood Urea Nitrogen 10 mg/dL (8-23); Calcium 8.8 mg/dL (8.5-10.5); Carbon Dioxide 26 mmol/L (22-29); Chloride 101 mmol/L (98-107); Globulin 2.1 g/dL (1.3-4.6); Glomerular Filtration Rate 84.8 mL/min (90-130); Glucose 83 mg/dL (65-115); Osmolality Calculated 280 mOsm/kg (285-295); Potassium 3.9 mmol/L (3.5-5.1); Sodium 136 mmol/L (136-145); Total Bilirubin 0.2 mg/dL (0.15-1.2); Total Protein 6.6 g/dL (6.6-8.7)
[2022-10-17 18:03] LABS: BCR ABL1 (IS) 0.007 (0.000); P210 BCR ALB1 DETECTED; Prior Results NG; Source blood
== END 2022-10-20 23:59 | disposition home or self-care (01) ==
PROVIDERS: PCP Family Medicine; Visit Provider Internal Medicine Medical Oncology
DX: C92.11 Chronic myeloid leukemia, BCR/ABL-positive, in remission (principal); R53.0 Neoplastic (malignant) related fatigue; G44.40 Drug-induced headache, not elsewhere classified, not intractable; T45.1X5A Adverse effect of antineoplastic and immunosuppressive drugs, initial encounter; M25.59 Pain in other specified joint; R11.2 Nausea with vomiting, unspecified; M79.7 Fibromyalgia; D51.9 Vitamin B12 deficiency anemia, unspecified; Z86.711 Personal history of pulmonary embolism; Z79.01 Long term (current) use of anticoagulants; Z79.891 Long term (current) use of opiate analgesic; Z79.899 Other long term (current) drug therapy
CPT/HCPCS: 80053; 81206; 85025; 96365; 96367; 96375; 99214; J1100; J2405; J7040

== ENCOUNTER 2022-11-10 13:29 | Oncology outpatient (recurring) (ONCR) | payer MEDICAID, SELFPAY ==
[2022-11-10 14:11] LABS: Basophils % 0.5 %; Eosinophils % 0.5 %; Hematocrit 30.4 % (37.0-47.0); Hemoglobin 9.8 g/dL (11.5-15.3); Lymphocytes # 1.3 10^3/uL (0.8-4.8); Lymphocytes % 19.1 %; Mean Corpuscular HGB Conc 32.2 g/dL (30.0-36.0); Mean Corpuscular Hemoglobin 29.7 pg (28.0-34.0); Mean Corpuscular Volume 92.1 fl (81-99); Mean Platelet Volume 10.2 fL (7.4-10.4); Monocytes # 0.4 10^3/uL (0.2-0.9); Monocytes % 5.6 %; Neutrophils # 4.86 10^3/uL (1.8-7.7); Nucleated Red Blood Cells % 0 %; Platelet Count 183 10^3/cmm (130-400); Red Cell Distribution Width 13.3 % (12.1-15.1); White Blood Count 6.6 10^3/uL (4.0-10.0)
[2022-11-10] MEDS: dexamethasone 4 mg/mL INJ 12 MG IV (14:19)
[2022-11-10] MEDS: ondansetron 2 mg/ML SDV 2 mL 8 MG IVP (14:19)
[2022-11-10] MEDS: sodium chloride 0.9% 500 ML 999 ML IV (14:20)
[2022-11-10 14:27] LABS: Alanine Aminotransferase 8 U/L (0-33); Alkaline Phosphatase 65 U/L (35-105); Anion Gap 12.3 (5-19); Aspartate Amino Transferase 18 U/L (0-32); Blood Urea Nitrogen 11 mg/dL (8-23); Calcium 8.4 mg/dL (8.5-10.5); Carbon Dioxide 25 mmol/L (22-29); Chloride 98 mmol/L (98-107); Globulin 2.1 g/dL (1.3-4.6); Glomerular Filtration Rate 84.8 mL/min (90-130); Glucose 100 mg/dL (65-115); Osmolality Calculated 271 mOsm/kg (285-295); Potassium 4.3 mmol/L (3.5-5.1); Sodium 131 mmol/L (136-145); Total Bilirubin 0.2 mg/dL (0.15-1.2); Total Protein 6.1 g/dL (6.6-8.7)
[2022-11-10] MEDS: cyanocobalamin 1,000 mcg/mL SDV 1000 MCG IM (15:08)
== END 2022-11-17 23:59 | disposition home or self-care (01) ==
LOC: ONCMED 13:29
PROVIDERS: PCP Family Medicine; Visit Provider Internal Medicine Medical Oncology
DX: C92.11 Chronic myeloid leukemia, BCR/ABL-positive, in remission (principal); Z79.899 Other long term (current) drug therapy; Z79.52 Long term (current) use of systemic steroids
CPT/HCPCS: 80053; 85025; 96372; J1100; J2405; J3420; J7040

== ENCOUNTER 2022-12-10 13:30 | Oncology outpatient (recurring) (ONCR) | payer MEDICAID, SELFPAY ==
[2022-12-03 14:02] LABS: Basophils % 0.7 %; Eosinophils % 0.7 %; Hematocrit 36.6 % (37.0-47.0); Hemoglobin 11.8 g/dL (11.5-15.3); Lymphocytes % 23.3 %; Mean Corpuscular HGB Conc 32.2 g/dL (30.0-36.0); Mean Corpuscular Hemoglobin 29.6 pg (28.0-34.0); Monocytes # 0.2 10^3/uL (0.2-0.9); Monocytes % 4.6 %; Neutrophils # 3.09 10^3/uL (1.8-7.7); Neutrophils % 70.5 %; Nucleated Red Blood Cells % 0 %; Platelet Count 188 10^3/cmm (130-400); Red Blood Count 3.98 10^6/uL (4.1-5.3); Red Cell Distribution Width 13.5 % (12.1-15.1); White Blood Count 4.4 10^3/uL (4.0-10.0)
[2022-12-03 14:24] LABS: Alanine Aminotransferase 9 U/L (0-33); Albumin Level 4.2 g/dL (3.5-5.2); Alkaline Phosphatase 64 U/L (35-105); Anion Gap 14.1 (5-19); Aspartate Amino Transferase 16 U/L (0-32); Blood Urea Nitrogen 7 mg/dL (8-23); Calcium 8.5 mg/dL (8.5-10.5); Carbon Dioxide 24 mmol/L (22-29); Chloride 98 mmol/L (98-107); Globulin 2.1 g/dL (1.3-4.6); Glucose 81 mg/dL (65-115); Osmolality Calculated 271 mOsm/kg (285-295); Potassium 4.1 mmol/L (3.5-5.1); Sodium 132 mmol/L (136-145); Total Bilirubin 0.2 mg/dL (0.15-1.2); Total Protein 6.3 g/dL (6.6-8.7)
[2022-12-10] MEDS: cyanocobalamin 1,000 mcg/mL SDV 1000 MCG IM (12:54)
[2022-12-10 12:59] VITALS: BP 94/63; PULSE 69; RESP 18; TEMP 37.1; O2SAT 98
== END 2022-12-18 23:59 | disposition home or self-care (01) ==
PROVIDERS: PCP Family Medicine; Visit Provider Internal Medicine Medical Oncology
DX: C92.11 Chronic myeloid leukemia, BCR/ABL-positive, in remission (principal); Z79.899 Other long term (current) drug therapy
CPT/HCPCS: 36591; 80053; 85025; 96372; 96401; J3420

== ENCOUNTER 2022-12-31 12:55 | Oncology outpatient (recurring) (ONCR) | payer MEDICAID, SELFPAY ==
[2022-12-31 13:25] VITALS: BP 110/68; PULSE 80; RESP 18; TEMP 37.3; O2SAT 95
[2022-12-31] MEDS: alteplase 1 mg/mL SDV 2 mL 2 MG INTRACATH (13:47)
[2022-12-31 15:13] LABS: Basophils % 0.8 %; Eosinophils # 0.1 10^3/uL (0.0-0.8); Eosinophils % 1.4 %; Hematocrit 34.9 % (37.0-47.0); Hemoglobin 11.4 g/dL (11.5-15.3); Lymphocytes # 1.6 10^3/uL (0.8-4.8); Lymphocytes % 31.4 %; Mean Corpuscular HGB Conc 32.7 g/dL (30.0-36.0); Mean Corpuscular Hemoglobin 29.8 pg (28.0-34.0); Mean Corpuscular Volume 91.1 fl (81-99); Mean Platelet Volume 10.2 fL (7.4-10.4); Monocytes # 0.3 10^3/uL (0.2-0.9); Monocytes % 6.1 %; Neutrophils # 3.04 10^3/uL (1.8-7.7); Neutrophils % 59.9 %; Nucleated Red Blood Cells % 0 %; Platelet Count 204 10^3/cmm (130-400); Red Blood Count 3.83 10^6/uL (4.1-5.3); White Blood Count 5.1 10^3/uL (4.0-10.0)
[2022-12-31 15:29] LABS: Alanine Aminotransferase 10 U/L (0-33); Albumin Level 4.1 g/dL (3.5-5.2); Alkaline Phosphatase 56 U/L (35-105); Anion Gap 14.1 (5-19); Aspartate Amino Transferase 15 U/L (0-32); Blood Urea Nitrogen 9 mg/dL (8-23); Calcium 8.9 mg/dL (8.5-10.5); Carbon Dioxide 26 mmol/L (22-29); Chloride 100 mmol/L (98-107); Creatinine Clr Calc Pharmacy 67.8517; Globulin 2.5 g/dL (1.3-4.6); Glomerular Filtration Rate 84.8 mL/min (90-130); Glucose 105 mg/dL (65-115); Lactate Dehydrogenase 163 U/L (135-214); Osmolality Calculated 281 mOsm/kg (285-295); Potassium 4.1 mmol/L (3.5-5.1); Sodium 136 mmol/L (136-145); Total Bilirubin 0.2 mg/dL (0.15-1.2); Total Protein 6.6 g/dL (6.6-8.7)
[2022-12-31 15:36] VITALS: RESP 18; O2SAT 98
[2022-12-31] MEDS: sodium chloride 0.9% 1,000 ML 999 ML IV (15:36)
[2022-12-31] MEDS: HYDROmorphone 1 mg/mL INJ 1 mL IVP (15:36)
[2022-12-31] MEDS: ondansetron 2 mg/ML SDV 2 mL 8 MG IVP (15:36)
[2022-12-31] MEDS: dexamethasone 10 mg/mL INJ IVP (15:38)
[2022-12-31 16:45] VITALS: BP 94/67; PULSE 84; RESP 18; TEMP 37.5; O2SAT 98
[2022-12-31] MEDS: cyanocobalamin 1,000 mcg/mL SDV 1000 MCG IM (16:45)
[2023-01-05 17:00] LABS: BCR ABL1 (IS) 0.007 (0.000); P210 BCR ALB1 DETECTED; Prior Results NG; Source Peripheral blood
== END 2023-01-17 23:59 | disposition home or self-care (01) ==
PROVIDERS: PCP Family Medicine; Visit Provider Internal Medicine Medical Oncology
DX: C92.11 Chronic myeloid leukemia, BCR/ABL-positive, in remission (principal); R53.0 Neoplastic (malignant) related fatigue; G43.919 Migraine, unspecified, intractable, without status migrainosus; M25.59 Pain in other specified joint; R11.2 Nausea with vomiting, unspecified; G89.29 Other chronic pain; D51.9 Vitamin B12 deficiency anemia, unspecified; Z86.711 Personal history of pulmonary embolism; Z79.01 Long term (current) use of anticoagulants; Z79.891 Long term (current) use of opiate analgesic; Z79.899 Other long term (current) drug therapy; R19.7 Diarrhea, unspecified
CPT/HCPCS: 36593; 80053; 81206; 83615; 85025; 96361; 96372; 96374; 96375; 99213; 99214; J1100; J1170; J2405; J2997; J3420; J7030

== ENCOUNTER 2023-02-03 10:46 | Oncology outpatient (recurring) (ONCR) | payer MEDICAID, SELFPAY ==
[2023-02-03 11:00] VITALS: BP 115/73; PULSE 89; RESP 18; TEMP 36.2; O2SAT 97
[2023-02-03 11:21] LABS: Basophils % 0.7 %; Eosinophils # 0.1 10^3/uL (0.0-0.8); Eosinophils % 1.5 %; Hematocrit 37.1 % (37.0-47.0); Hemoglobin 12.1 g/dL (11.5-15.3); Lymphocytes # 1.4 10^3/uL (0.8-4.8); Lymphocytes % 29.5 %; Mean Corpuscular HGB Conc 32.6 g/dL (30.0-36.0); Mean Corpuscular Hemoglobin 30.3 pg (28.0-34.0); Mean Platelet Volume 9.7 fL (7.4-10.4); Monocytes # 0.3 10^3/uL (0.2-0.9); Monocytes % 5.5 %; Neutrophils # 2.85 10^3/uL (1.8-7.7); Neutrophils % 62.4 %; Nucleated Red Blood Cells % 0 %; Platelet Count 188 10^3/cmm (130-400); Red Blood Count 3.99 10^6/uL (4.1-5.3); Red Cell Distribution Width 13.2 % (12.1-15.1); White Blood Count 4.6 10^3/uL (4.0-10.0)
[2023-02-03] MEDS: ondansetron 2 mg/ML SDV 2 mL 8 MG IVP (11:39)
[2023-02-03 11:40] VITALS: RESP 18; O2SAT 98
[2023-02-03] MEDS: dexamethasone 10 mg/mL INJ IVP (11:40)
[2023-02-03] MEDS: HYDROmorphone 1 mg/mL INJ 1 mL IVP (11:40)
[2023-02-03] MEDS: sodium chloride 0.9% 1,000 ML 999 ML IV (11:41)
[2023-02-03 11:51] LABS: Alanine Aminotransferase 7 U/L (0-33); Albumin Level 4.2 g/dL (3.5-5.2); Alkaline Phosphatase 72 U/L (35-105); Aspartate Amino Transferase 15 U/L (0-32); Blood Urea Nitrogen 9 mg/dL (8-23); Calcium 9.2 mg/dL (8.5-10.5); Carbon Dioxide 27 mmol/L (22-29); Chloride 102 mmol/L (98-107); Globulin 2.3 g/dL (1.3-4.6); Glucose 107 mg/dL (65-115); Osmolality Calculated 285 mOsm/kg (285-295); Sodium 138 mmol/L (136-145); Total Bilirubin 0.2 mg/dL (0.15-1.2); Total Protein 6.5 g/dL (6.6-8.7)
[2023-02-03] MEDS: cyanocobalamin 1,000 mcg/mL SDV 1000 MCG IM (12:49)
[2023-02-03 12:55] VITALS: BP 111/59; PULSE 80; RESP 18; TEMP 37; O2SAT 97
== END 2023-02-17 23:59 | disposition home or self-care (01) ==
PROVIDERS: PCP Family Medicine; Visit Provider Internal Medicine Medical Oncology
DX: C92.11 Chronic myeloid leukemia, BCR/ABL-positive, in remission (principal)
CPT/HCPCS: 80053; 85025; 96361; 96374; 96375; 96401; J1100; J1170; J1642; J2405; J3420; J7030

== ENCOUNTER 2023-03-03 10:23 | Oncology outpatient (recurring) (ONCR) | payer MEDICAID, SELFPAY ==
[2023-03-03 10:39] VITALS: BP 128/82; PULSE 72; RESP 18; TEMP 36.3; O2SAT 98
[2023-03-03 10:59] LABS: Basophils % 0.7 %; Eosinophils # 0.1 10^3/uL (0.0-0.8); Eosinophils % 2.3 %; Hematocrit 36.3 % (37.0-47.0); Hemoglobin 11.9 g/dL (11.5-15.3); Lymphocytes # 1.7 10^3/uL (0.8-4.8); Lymphocytes % 28.7 %; Mean Corpuscular HGB Conc 32.8 g/dL (30.0-36.0); Mean Corpuscular Hemoglobin 30.1 pg (28.0-34.0); Mean Corpuscular Volume 91.7 fl (81-99); Mean Platelet Volume 9.9 fL (7.4-10.4); Monocytes # 0.4 10^3/uL (0.2-0.9); Monocytes % 7.1 %; Neutrophils # 3.49 10^3/uL (1.8-7.7); Neutrophils % 60.7 %; Nucleated Red Blood Cells % 0 %; Platelet Count 179 10^3/cmm (130-400); Red Blood Count 3.96 10^6/uL (4.1-5.3); Red Cell Distribution Width 12.6 % (12.1-15.1); White Blood Count 5.8 10^3/uL (4.0-10.0)
[2023-03-03] MEDS: ondansetron 2 mg/ML SDV 2 mL 8 MG IVP (11:03)
[2023-03-03] MEDS: sodium chloride 0.9% 1,000 ML 999 ML IV (11:03)
[2023-03-03] MEDS: cyanocobalamin 1,000 mcg/mL SDV 1000 MCG IM (11:08)
[2023-03-03 11:36] LABS: Alanine Aminotransferase 11 U/L (0-33); Alkaline Phosphatase 78 U/L (35-105); Anion Gap 10.1 (5-19); Aspartate Amino Transferase 18 U/L (0-32); Blood Urea Nitrogen 9 mg/dL (8-23); Calcium 8.8 mg/dL (8.5-10.5); Carbon Dioxide 30 mmol/L (22-29); Chloride 101 mmol/L (98-107); Globulin 2.3 g/dL (1.3-4.6); Glomerular Filtration Rate 124.6 mL/min (90-130); Glucose 82 mg/dL (65-115); Osmolality Calculated 282 mOsm/kg (285-295); Potassium 4.1 mmol/L (3.5-5.1); Sodium 137 mmol/L (136-145); Thyroid Stimulating Hormone 4.16 uIU/mL (0.27-4.20); Total Bilirubin 0.2 mg/dL (0.15-1.2); Total Protein 6.3 g/dL (6.6-8.7)
[2023-03-03 12:40] VITALS: BP 103/67; PULSE 86; TEMP 37.4; O2SAT 96
== END 2023-03-19 23:59 | disposition home or self-care (01) ==
PROVIDERS: PCP Family Medicine; Visit Provider Internal Medicine Medical Oncology
DX: C92.11 Chronic myeloid leukemia, BCR/ABL-positive, in remission (principal); E03.9 Hypothyroidism, unspecified; Z79.899 Other long term (current) drug therapy
CPT/HCPCS: 80053; 84443; 85025; 96361; 96372; 96374; J1642; J2405; J3420; J7030

== ENCOUNTER 2023-04-02 11:00 | Oncology outpatient (recurring) (ONCR) | payer MEDICAID, SELFPAY ==
[2023-03-31 10:03] VITALS: BP 113/69; PULSE 83; RESP 18; TEMP 36.4; O2SAT 97
[2023-03-31 10:14] LABS: Basophils % 0.8 %; Eosinophils # 0.1 10^3/uL (0.0-0.8); Eosinophils % 1.3 %; Hematocrit 35.5 % (37.0-47.0); Hemoglobin 11.4 g/dL (11.5-15.3); Lymphocytes # 1.6 10^3/uL (0.8-4.8); Mean Corpuscular HGB Conc 32.1 g/dL (30.0-36.0); Mean Corpuscular Hemoglobin 28.9 pg (28.0-34.0); Mean Corpuscular Volume 89.9 fl (81-99); Mean Platelet Volume 10.5 fL (7.4-10.4); Monocytes # 0.2 10^3/uL (0.2-0.9); Monocytes % 6.1 %; Neutrophils # 1.84 10^3/uL (1.8-7.7); Neutrophils % 48.5 %; Nucleated Red Blood Cells % 0 %; Platelet Count 165 10^3/cmm (130-400); Red Blood Count 3.95 10^6/uL (4.1-5.3); Red Cell Distribution Width 13.2 % (12.1-15.1); White Blood Count 3.8 10^3/uL (4.0-10.0)
[2023-03-31 10:33] LABS: Alanine Aminotransferase 7 U/L (0-33); Albumin Level 4.4 g/dL (3.5-5.2); Alkaline Phosphatase 67 U/L (35-105); Anion Gap 15.1 (5-19); Aspartate Amino Transferase 16 U/L (0-32); Blood Urea Nitrogen 4 mg/dL (8-23); Calcium 8.5 mg/dL (8.5-10.5); Carbon Dioxide 25 mmol/L (22-29); Chloride 100 mmol/L (98-107); Globulin 2.2 g/dL (1.3-4.6); Glomerular Filtration Rate 84.5 mL/min (90-130); Glucose 89 mg/dL (65-115); Lactate Dehydrogenase 143 U/L (135-214); Osmolality Calculated 278 mOsm/kg (285-295); Potassium 4.1 mmol/L (3.5-5.1); Sodium 136 mmol/L (136-145); Total Bilirubin 0.2 mg/dL (0.15-1.2); Total Protein 6.6 g/dL (6.6-8.7)
[2023-03-31] MEDS: sodium chloride 0.9% 1,000 ML 999 ML IV (12:40)
[2023-03-31] MEDS: LORazepam 2 mg/mL INJ 1 mL 0.5 MG IVP (12:44)
[2023-03-31] MEDS: cyanocobalamin 1,000 mcg/mL SDV 1000 MCG IM (14:49)
[2023-03-31 15:00] VITALS: BP 113/69; PULSE 74; RESP 16; TEMP 37.3; O2SAT 97
[2023-04-02] MEDS: sodium chloride 0.9% 1,000 ML 999 ML IV (12:01)
[2023-04-02 13:04] VITALS: BP 115/67; PULSE 74; RESP 16; TEMP 36.9; O2SAT 100
[2023-04-06 10:56] LABS: BCR ABL1 (IS) 0.003 (0.000); P210 BCR ALB1 DETECTED; Prior Results NG; Source Peripheral blood
== END 2023-04-19 23:59 | disposition home or self-care (01) ==
PROVIDERS: PCP Family Medicine; Visit Provider Internal Medicine Medical Oncology
DX: C92.11 Chronic myeloid leukemia, BCR/ABL-positive, in remission (principal); R19.7 Diarrhea, unspecified
CPT/HCPCS: 80053; 81206; 83615; 85025; 87493; 87506; 96361; 96365; 96372; 96375; 99214; J1100; J1642; J2060; J3420; J7030

== ENCOUNTER 2023-04-29 07:53 | Oncology outpatient (recurring) (ONCR) | payer MEDICAID, SELFPAY ==
[2023-04-29 08:18] VITALS: BP 133/64; PULSE 70; RESP 18; TEMP 37.1; O2SAT 99
[2023-04-29] MEDS: cyanocobalamin 1,000 mcg/mL SDV 1000 MCG IM (08:55)
[2023-04-29] MEDS: ondansetron 2 mg/ML SDV 2 mL 8 MG IVP (09:01)
[2023-04-29] MEDS: sodium chloride 0.9% 1,000 ML 999 ML IV (09:01)
[2023-04-29 11:09] VITALS: RESP 16; O2SAT 95
[2023-04-29 11:25] VITALS: BP 119/68; PULSE 78; RESP 18; TEMP 36.6; O2SAT 96
== END 2023-05-20 23:59 | disposition home or self-care (01) ==
PROVIDERS: PCP Family Medicine; Visit Provider Internal Medicine Medical Oncology
DX: C92.11 Chronic myeloid leukemia, BCR/ABL-positive, in remission (principal); Z79.899 Other long term (current) drug therapy
CPT/HCPCS: 96360; 96361; 96368; 96372; J1100; J1642; J2405; J3420; J7030

== ENCOUNTER 2023-05-27 07:55 | Oncology outpatient (recurring) (ONCR) | payer MEDICAID, SELFPAY ==
[2023-05-27 08:38] VITALS: BP 109/53; PULSE 67; RESP 16; TEMP 36.6; O2SAT 98
[2023-05-27] MEDS: sodium chloride 0.9% 1,000 ML 999 ML IV (08:45)
[2023-05-27] MEDS: ondansetron 2 mg/ML SDV 2 mL 8 MG IVP (08:48)
[2023-05-27] MEDS: cyanocobalamin 1,000 mcg/mL SDV 1000 MCG IM (08:53)
[2023-05-27 10:15] VITALS: BP 95/52; PULSE 64; RESP 16; TEMP 37.3; O2SAT 95
== END 2023-06-19 23:59 | disposition home or self-care (01) ==
PROVIDERS: PCP Family Medicine; Visit Provider Internal Medicine Medical Oncology
DX: C92.11 Chronic myeloid leukemia, BCR/ABL-positive, in remission (principal)
CPT/HCPCS: 96372; 96375; J1642; J2405; J3420; J7030

== ENCOUNTER 2023-06-24 08:31 | Oncology outpatient (recurring) (ONCR) | payer MEDICAID, SELFPAY ==
[2023-06-24 10:00] VITALS: BP 120/76; PULSE 68; RESP 16; TEMP 37.4; O2SAT 98
[2023-06-24 10:15] LABS: Eosinophils # 0.1 10^3/uL (0.0-0.8); Eosinophils % 2.1 %; Hematocrit 35.1 % (36-47); Lymphocytes # 1.4 10^3/uL (0.8-4.8); Lymphocytes % 35.9 %; Mean Corpuscular Hemoglobin 29.7 pg (27-33); Mean Corpuscular Volume 89.8 fl (85-98); Mean Platelet Volume 9.9 fL (7.4-10.4); Monocytes # 0.2 10^3/uL (0.2-0.9); Monocytes % 5.7 %; Neutrophils # 2.13 10^3/uL (1.8-7.7); Nucleated Red Blood Cells % 0 %; Platelet Count 196 10^3/cmm (157-399); Red Blood Count 3.91 10^6/uL (3.85-5.65); Red Cell Distribution Width 14.2 % (12.1-15.1); White Blood Count 3.87 10^3/uL (3.29-11.43)
[2023-06-24 10:33] LABS: Alanine Aminotransferase 7 U/L (0-33); Albumin Level 4.2 g/dL (3.5-5.2); Alkaline Phosphatase 67 U/L (35-105); Anion Gap 12.3 (5-19); Aspartate Amino Transferase 14 U/L (0-32); Blood Urea Nitrogen 6 mg/dL (8-23); Calcium 8.6 mg/dL (8.5-10.5); Carbon Dioxide 28 mmol/L (22-29); Chloride 104 mmol/L (98-107); Globulin 2.1 g/dL (1.3-4.6); Glomerular Filtration Rate 72.4 mL/min (90-130); Glucose 87 mg/dL (65-115); Lactate Dehydrogenase 137 U/L (135-214); Osmolality Calculated 287 mOsm/kg (285-295); Potassium 4.3 mmol/L (3.5-5.1); Sodium 140 mmol/L (136-145); Total Bilirubin 0.2 mg/dL (0.15-1.2); Total Protein 6.3 g/dL (6.6-8.7)
[2023-06-24] MEDS: sodium chloride 0.9% 1,000 ML 999 ML IV (12:01)
[2023-06-24] MEDS: ondansetron 2 mg/ML SDV 2 mL 8 MG IVP (12:01)
[2023-06-24] MEDS: cyanocobalamin 1,000 mcg/mL SDV 1000 MCG IM (12:49)
[2023-06-24 13:59] VITALS: BP 115/70; PULSE 63; RESP 18; TEMP 37.1; O2SAT 97
[2023-06-29 20:04] LABS: BCR ABL1 (IS) 0.015 (0.000); P210 BCR ALB1 DETECTED; P210 BCR ALB1 Yes Test Yes; Prior Results NG; Source whole blood
== END 2023-07-20 23:59 | disposition home or self-care (01) ==
PROVIDERS: PCP Family Medicine; Visit Provider Internal Medicine Medical Oncology
DX: C92.11 Chronic myeloid leukemia, BCR/ABL-positive, in remission (principal); Z53.9 Procedure and treatment not carried out, unspecified reason; E53.8 Deficiency of other specified B group vitamins; Z86.711 Personal history of pulmonary embolism; G89.29 Other chronic pain; Z80.3 Family history of malignant neoplasm of breast
CPT/HCPCS: 80053; 81206; 83615; 85025; 96360; 96367; 96372; 96375; 99214; J1100; J1642; J2405; J3420; J7030

== ENCOUNTER 2023-07-14 16:04 | Emergency (ER) | payer MEDICAID, SELFPAY ==
[2023-07-14 16:10] VITALS: BP 129/72; PULSE 77; RESP 16; TEMP 36.8; O2SAT 99; BMI 20.2
--- NOTE | 2023-07-14 16:23 | XRR_ITS ---
PROCEDURE INFORMATION: Exam: XR Lumbosacral Spine Exam date and time: 07/14/2023 4:35 PM Age: 63 years old Clinical indication: Low back pain; Patient HX: --back pain x 1 week after lifting TECHNIQUE: Imaging protocol: Radiologic exam of the lumbosacral spine. Views: 2 or 3 views. COMPARISON: CT abdomen pelvis w con* [id number] 01/15/2017 7:59 PM FINDINGS: Bones/joints: No fracture or other acute abnormality. Alignment is normal. Mild L2 degenerative disc disease is seen. Remaining levels are normal. Soft tissues: Unremarkable. XR/XR lumbar spine 2-3V* [id number] IMPRESSION: Nonacute findings.
--- NOTE | 2023-07-14 16:28 | ED_ITS ---
HPI - Back Pain/Injury General: Chief Complaint: Back Pain/Injury Stated Complaint: back injury Time Seen by Provider: 07/14/23 16:16 Source: patient Mode of arrival: ambulatory Limitations: no limitations History of Present Illness: 63-year-old female states that roughly 5 days ago she was helping someone lift a heavy object at their house she states that they had started to drop and she tried to catch it and twisted and had a strain in her left side of her back states she had left-sided back pain since then it does radiate down her legs she denies any bowel or bladder incontinence is worse with movement improved with rest she rates her pain a 5 out of 10 currently. Associated symptoms: Deny abdominal pain, chills, fever(s), nausea or vomiting Review of Systems Const: Denies: fever(s), chills, body aches or change in appetite Eyes: Denies: blurry vision or eye discomfort ENMT: Denies: throat pain or dental pain Card: Denies: chest pain Resp: Denies: dyspnea GI: Denies: abdominal pain, nausea, vomiting or diarrhea Musc: Reports: back pain; Denies: neck pain Skin/Breast: Denies: rash Neuro: Denies: headache(s) PFSH ED PFSH: Medical History Anxiety and depression Atrophic vaginitis B12 deficiency Chronic migraine DDD (degenerative disc disease) Fibromyalgia GERD (gastroesophageal reflux disease) Hx pulmonary embolism Hypothyroidism Peptic ulcer disease Surgical History History of bone marrow biopsy History of colonoscopy (2013) History of esophagogastroduodenoscopy (EGD) (2013) History of esophagogastroduodenoscopy (EGD) (2014) History of lumpectomy of right breast History of total abdominal hysterectomy Hx of appendectomy Hx of bilateral oophorectomy Hx of colectomy Hx of exploratory laparotomy (05/2017) for celiac artery stenosis at [facility] Hx of neck surgery Cervical laminectomy with bone graft Hx of right knee surgery Family History Mother No problems noted. Sister Breast cancer Grandmother Cancer Brother Pancreatic cancer Father Dementia Other CAD (coronary artery disease) Diabetes Hyperlipidemia Hypertension Lung disease Stroke Denies family history of Clotting disorder Psychiatric illness Chronic kidney disease (CKD) Suicide Anesthesia complication Bleeding disorder Social History Smoking and tobacco/nicotine status: never used tobacco/nicotine Alcohol intake: never Substance/Drug Use: unknown Adopted: No Caregiver/support person: No Lives independently: No Household members: spouse Marital status: Current occupational status: disabled Physical Exam Const: COMMON NORMALS: no acute distress, patient oriented x3 and healthy appearing HENMT: COMMON NORMALS: normocephalic and atraumatic HEAD & SCALP: normocephalic and atraumatic Neck/C-Spine: COMMON NORMALS: full ROM and supple Chest: COMMONS NORMALS: normal inspection of the chest Resp: COMMON NORMALS: normal respiratory effort Cardio: COMMON NORMALS: regular rate, regular rhythm and No murmurs present (Cardio) RATE: regular rate RHYTHM: regular rhythm GI: COMMON NORMALS: Normal to inspection, nondistended, normoactive bowel sounds present, Soft to palpation, non-tender and no masses PALPATION: Yes Soft to palpation Back/Pelvis: OTHER: Tenderness over left lower lumbar no midline tenderness no saddle anesthesia Extremity: COMMON NORMALS: normal to inspection and full ROM Neuro: COMMON NORMALS: patient oriented x3, moves all extremities and no focal motor deficits Psych: COMMON NORMALS: mental status grossly normal, Normal thought process present and cooperative THOUGHT PROCESS: Normal thought process present Skin: COMMON NORMALS: no rashes or lesions noted and no wounds GENERAL SKIN EXAM: no rashes or lesions noted Course Vital Signs: Vital signs: Vital Signs Temperature 98.3 F 07/14/23 16:10 Pulse Rate 77 07/14/23 16:10 Respiratory Rate 18 07/14/23 16:55 Blood Pressure 129/72 07/14/23 16:10 Pulse Oximetry 98 07/14/23 16:55 Oxygen Delivery Me thod Room Air 07/14/23 16:10 MDM - Back Pain/Injury Medical Decision Making Patient presents here with low back pain likely muscle strain she has no signs of cord injury epidural abscess we will prescribe her Naprosyn and Robaxin she is to follow-up with PCP and return if worsening. Medical Records I reviewed the patient's medical records. Labs Radiology Impressions Lumbar Spine X-Ray 07/14/23 16:23 IMPRESSION: Nonacute findings. All radiology interpretation(s) finalized by discharge Discharge Plan Discharge Patient Disposition: Home Clinical Impression: Low back strain Condition: Stable Prescriptions: New methocarbamol 750 mg tablet 750 mg PO Q6H PRN (Reason: spasms) Qty: 20 0RF Naprosyn 500 mg tablet 500 mg PO BID PRN (Reason: pain) Qty: 20 0RF No Action prednisone 10 mg tablet 10 mg PO DAILY Qty: 44 0RF Rx Instructions: Take 4 tabs by mouth for 4 days, then 3 tabs x 4 days, 2 tabs x 4 days, 1 tabs x 8 days acyclovir 400 mg tablet 400 mg PO BID Qty: 60 4RF Eliquis 5 mg tablet See Rx Instructions .ROUTE .COMPLEX Qty: 60 3RF Dose Instruction: TAKE 1 TABLET BY MOUTH TWICE DAILY Rx Instructions: TAKE 1 TABLET BY MOUTH TWICE DAILY fluticasone propionate 50 mcg/actuation spray,suspension See Rx Instructions .ROUTE .COMPLEX Qty: 16 3RF Dose Instruction: SHAKE LIQUID AND USE 2 SPRAYS IN EACH NOSTRIL DAILY Rx Instructions: SHAKE LIQUID AND USE 2 SPRAYS IN EACH NOSTRIL DAILY ondansetron 4 mg tablet,disintegrating 4 mg PO Q6H PRN (Reason: nausea and vomiting) Qty: 20 2RF docusate sodium 100 mg capsule 100 mg PO BID Qty: 180 0RF sennosides-docusate sodium [Stimulant Laxative Plus] 8.6-50 mg tablet 1 tab-cap PO DAILY Qty: 60 6RF Rx Instructions: Take 1 to 3 tablets by mouth three times daily as needed pantoprazole 40 mg tablet,delayed release (DR/EC) 40 mg PO BID Qty: 180 3RF venlafaxine 150 mg capsule,extended release 24hr 150 mg PO DAILY Qty: 90 3RF ropinirole 1 mg tablet 1 mg PO BID Qty: 180 3RF montelukast 10 mg tablet See Rx Instructions .ROUTE .COMPLEX Qty: 90 3RF Dose Instruction: TAKE 1 TABLET BY MOUTH DAILY Rx Instructions: TAKE 1 TABLET BY MOUTH DAILY levothyroxine 50 mcg capsule 50 mcg PO DAILY Qty: 90 2RF potassium chloride 10 mEq tablet extended release 10 meq PO DAILY Qty: 90 3RF ferrous sulfate [FeroSul] 325 mg (65 mg iron) tablet See Rx Instructions .ROUTE .COMPLEX Qty: 180 0RF Dose Instruction: TAKE 1 TABLET BY MOUTH TWICE DAILY Rx Instructions: TAKE 1 TABLET BY MOUTH TWICE DAILY [id number] 50-325-40 mg capsule 1 cap PO Q4H PRN (Reason: pain) Qty: 120 5RF Rx Instructions: max 6 tablets daily promethazine 25 mg tablet 25 mg PO BID PRN (Reason: nausea and vomiting) Qty: 120 3RF diazepam 10 mg tablet 10 mg PO BID PRN (Reason: anxiety) Qty: 60 3RF gabapentin 300 mg capsule See Rx Instructions .ROUTE .COMPLEX Qty: 270 3RF Dose Instruction: TAKE 1 CAPSULE BY MOUTH THREE TIMES DAILY Rx Instructions: TAKE 1 CAPSULE BY MOUTH THREE TIMES DAILY hydromorphone 2 mg tablet 2 mg PO QID 30 Days Qty: 120 0RF cetirizine 10 mg tablet 10 mg PO DAILY Qty: 30 3RF sucralfate 1 gram tablet See Rx Instructions .ROUTE .COMPLEX Qty: 120 0RF Dose Instruction: TAKE 1 TABLET BY MOUTH FOUR TIMES DAILY Rx Instructions: TAKE 1 TABLET BY MOUTH FOUR TIMES DAILY ponatinib 15 mg tablet 15 mg PO DAILY Qty: 28 2RF Discharge Orders: Discharge ED (Routine); Ordered 07/14/23 Ordered By: Florencio Bond Referrals: Daniela Villa MD [Primary Care Provider] - 1-3 days Discharge Diet: Advance as tolerated Discharge Activity: Resume usual activity Patient Instructions: Low Back Strain (ED) Coding Level of Care Code ED Regulatory Affairs Coordinator for Cassie Webber
[2023-07-14 16:55] VITALS: RESP 18; O2SAT 98
[2023-07-14] MEDS: ketorolac 30 mg/mL INJ IM (16:55)
[2023-07-14] MEDS: dexamethasone 10 mg/mL INJ IM (16:55)
[2023-07-14] MEDS: HYDROmorphone 1 mg/mL INJ 1 mL IM (16:55)
== END 2023-07-14 17:21 | disposition home or self-care (01) ==
PROVIDERS: Emergency Provider Emergency Medicine; PCP Family Medicine
DX: S39.012A Strain of muscle, fascia and tendon of lower back, initial encounter (principal); Z79.01 Long term (current) use of anticoagulants; X50.0XXA Overexertion from strenuous movement or load, initial encounter
CPT/HCPCS: 72100; 96372; 99284; J1100; J1170; J1885

== ENCOUNTER 2023-07-26 13:58 | Outpatient (CLI) | payer MEDICAID, SELFPAY ==
--- NOTE | 2023-07-26 14:07 | MM_ITS ---
WS: [id number] BILATERAL 3D TOMOSYNTHESIS DIGITAL SCREENING MAMMOGRAPHY WITH CAD CLINICAL INFORMATION: SCREENING HISTORY: Screening mammogram. No current complaints. COMPARISON: 2021 TECHNIQUE: Bilateral CC and MLO views. FINDINGS: The breasts are composed of heterogeneous fibroglandular density tissue, which can limit the detectio n of small underlying mass lesions. No suspicious mass, asymmetry, calcifications, or architectural d istortion. No evidence of malignancy. Punctate and lucent centered calcifications. Vascular calcifica tion. IMPRESSION: MM/[place] [id number] BI-RADS: 2-Benign FOLLOW UP: 1 Year Follow-up Recommend return to annual screening mammography.
== END 2023-07-26 13:59 | disposition home or self-care (01) ==
PROVIDERS: PCP Family Medicine; Visit Provider Registered Nurse
DX: Z12.31 Encounter for screening mammogram for malignant neoplasm of breast (principal)
CPT/HCPCS: 77063; 77067

== ENCOUNTER 2023-08-19 11:45 | Oncology outpatient (recurring) (ONCR) | payer MEDICAID, SELFPAY ==
[2023-07-21 12:55] VITALS: BP 115/64; PULSE 77; RESP 17; TEMP 36.4; O2SAT 98; BMI 19.8
[2023-07-21 13:21] LABS: Basophils # 0.1 10^3/uL (0.0-0.1); Eosinophils # 0.1 10^3/uL (0.0-0.8); Hematocrit 32.8 % (36-47); Lymphocytes # 1.6 10^3/uL (0.8-4.8); Mean Corpuscular HGB Conc 32.6 g/dL (30-55); Mean Corpuscular Hemoglobin 29.6 pg (27-33); Mean Corpuscular Volume 90.9 fl (85-98); Mean Platelet Volume 10.1 fL (7.4-10.4); Monocytes # 0.3 10^3/uL (0.2-0.9); Monocytes % 5.9 %; Neutrophils # 2.88 10^3/uL (1.8-7.7); Neutrophils % 58.9 %; Nucleated Red Blood Cells % 0 %; Platelet Count 234 10^3/cmm (157-399); Red Blood Count 3.61 10^6/uL (3.85-5.65); Red Cell Distribution Width 13.5 % (12.1-15.1)
[2023-07-21] MEDS: ondansetron 2 mg/ML SDV 2 mL 8 MG IVP (13:21)
[2023-07-21] MEDS: sodium chloride 0.9% 1,000 ML 999 ML IV (13:21)
[2023-07-21] MEDS: cyanocobalamin 1,000 mcg/mL SDV 1000 MCG IM (13:22)
[2023-07-21 13:37] LABS: Alanine Aminotransferase 8 U/L (0-33); Albumin Level 4.2 g/dL (3.5-5.2); Alkaline Phosphatase 67 U/L (35-105); Anion Gap 12.3 (5-19); Aspartate Amino Transferase 15 U/L (0-32); Blood Urea Nitrogen 8 mg/dL (8-23); Calcium 8.7 mg/dL (8.5-10.5); Carbon Dioxide 28 mmol/L (22-29); Chloride 100 mmol/L (98-107); Globulin 1.9 g/dL (1.3-4.6); Glomerular Filtration Rate 84.5 mL/min (90-130); Glucose 89 mg/dL (65-115); Osmolality Calculated 280 mOsm/kg (285-295); Potassium 4.3 mmol/L (3.5-5.1); Sodium 136 mmol/L (136-145); Total Bilirubin 0.2 mg/dL (0.15-1.2); Total Protein 6.1 g/dL (6.6-8.7)
[2023-07-21 14:40] VITALS: BP 109/68; PULSE 72; RESP 16; TEMP 36.7; O2SAT 97
[2023-08-19] MEDS: sodium chloride 0.9% 1,000 ML 999 ML IV (13:04)
[2023-08-19] MEDS: ondansetron 2 mg/ML SDV 2 mL 8 MG IVP (13:05)
[2023-08-19] MEDS: HYDROmorphone 1 mg/mL INJ 1 mL IM (13:08)
[2023-08-19] MEDS: cyanocobalamin 1,000 mcg/mL SDV 1000 MCG IM (13:16)
[2023-08-19 14:42] VITALS: BP 107/69; PULSE 74; RESP 16; TEMP 37.1; O2SAT 99
== END 2023-08-19 23:59 | disposition home or self-care (01) ==
PROVIDERS: Nurse Practitioner Family; PCP Family Medicine; Visit Provider Internal Medicine Medical Oncology
DX: C92.11 Chronic myeloid leukemia, BCR/ABL-positive, in remission (principal)
CPT/HCPCS: 80053; 85025; 96365; 96367; 96372; 96375; J1100; J1170; J1642; J2405; J3420; J7030

== ENCOUNTER 2023-09-16 09:54 | Oncology outpatient (recurring) (ONCR) | payer MEDICAID, SELFPAY ==
[2023-09-16 10:20] VITALS: BP 121/78; PULSE 72; RESP 16; TEMP 37.3; O2SAT 98
[2023-09-16 10:30] LABS: Basophils % 0.8 %; Eosinophils # 0.1 10^3/uL (0.0-0.8); Eosinophils % 1.6 %; Hematocrit 35.3 % (36-47); Lymphocytes # 1.6 10^3/uL (0.8-4.8); Lymphocytes % 41.1 %; Mean Corpuscular HGB Conc 32.9 g/dL (30-55); Mean Corpuscular Hemoglobin 29.7 pg (27-33); Mean Corpuscular Volume 90.3 fl (85-98); Mean Platelet Volume 10.7 fL (7.4-10.4); Monocytes # 0.2 10^3/uL (0.2-0.9); Monocytes % 6.3 %; Neutrophils # 1.91 10^3/uL (1.8-7.7); Neutrophils % 50.2 %; Nucleated Red Blood Cells % 0 %; Platelet Count 152 10^3/cmm (157-399); Red Blood Count 3.91 10^6/uL (3.85-5.65); Red Cell Distribution Width 13.8 % (12.1-15.1)
[2023-09-16 10:51] LABS: Alanine Aminotransferase 9 U/L (0-33); Albumin Level 4.3 g/dL (3.5-5.2); Alkaline Phosphatase 69 U/L (35-105); Anion Gap 12.6 (5-19); Aspartate Amino Transferase 17 U/L (0-32); Blood Urea Nitrogen 5 mg/dL (8-23); Calcium 9.2 mg/dL (8.5-10.5); Carbon Dioxide 30 mmol/L (22-29); Chloride 102 mmol/L (98-107); Creatinine Clr Calc Pharmacy 77.4304; Globulin 2.1 g/dL (1.3-4.6); Glucose 91 mg/dL (65-115); Osmolality Calculated 289 mOsm/kg (285-295); Potassium 3.6 mmol/L (3.5-5.1); Sodium 141 mmol/L (136-145); Total Bilirubin 0.3 mg/dL (0.15-1.2); Total Protein 6.4 g/dL (6.6-8.7)
[2023-09-16] MEDS: sodium chloride 0.9% 500 ML 999 ML IV (12:33)
[2023-09-16] MEDS: ondansetron 2 mg/ML SDV 2 mL 8 MG IVP (12:34)
[2023-09-16 12:39] VITALS: RESP 18
[2023-09-16] MEDS: cyanocobalamin 1,000 mcg/mL SDV 1000 MCG IM (13:29)
[2023-09-16 13:34] VITALS: BP 112/64; PULSE 59; RESP 18; TEMP 37.1; O2SAT 98
[2023-09-22 21:51] LABS: BCR ABL1 (IS) 0.015 (0.000); P210 BCR ALB1 DETECTED; P210 BCR ALB1 Yes Test Yes; Prior Results BLOOD; Source blood
== END 2023-09-19 23:59 | disposition home or self-care (01) ==
PROVIDERS: PCP Family Medicine; Visit Provider Internal Medicine Medical Oncology
DX: C92.11 Chronic myeloid leukemia, BCR/ABL-positive, in remission (principal); G89.29 Other chronic pain; E53.8 Deficiency of other specified B group vitamins; Z86.711 Personal history of pulmonary embolism
CPT/HCPCS: 80053; 81206; 85025; 96360; 96375; 96402; 99214; J1642; J2405; J3420; J7040

== ENCOUNTER 2023-10-20 11:13 | Oncology outpatient (recurring) (ONCR) | payer MEDICAID, SELFPAY ==
[2023-10-20 12:06] LABS: Basophils % 0.8 %; Eosinophils # 0.1 10^3/uL (0.0-0.8); Eosinophils % 2.5 %; Hematocrit 34.6 % (36-47); Lymphocytes # 1.7 10^3/uL (0.8-4.8); Mean Corpuscular HGB Conc 32.4 g/dL (30-55); Mean Corpuscular Hemoglobin 29.4 pg (27-33); Mean Corpuscular Volume 90.8 fl (85-98); Monocytes # 0.3 10^3/uL (0.2-0.9); Monocytes % 5.8 %; Neutrophils # 2.61 10^3/uL (1.8-7.7); Neutrophils % 54.5 %; Nucleated Red Blood Cells % 0 %; Platelet Count 185 10^3/cmm (157-399); Red Blood Count 3.81 10^6/uL (3.85-5.65); Red Cell Distribution Width 13.8 % (12.1-15.1)
[2023-10-20 12:25] LABS: Alanine Aminotransferase 9 U/L (0-33); Alkaline Phosphatase 64 U/L (35-105); Anion Gap 11.9 (5-19); Aspartate Amino Transferase 17 U/L (0-32); Blood Urea Nitrogen 8 mg/dL (8-23); Calcium 8.9 mg/dL (8.5-10.5); Carbon Dioxide 29 mmol/L (22-29); Chloride 101 mmol/L (98-107); Globulin 2.1 g/dL (1.3-4.6); Glomerular Filtration Rate 84.5 mL/min (90-130); Glucose 90 mg/dL (65-115); Osmolality Calculated 284 mOsm/kg (285-295); Potassium 3.9 mmol/L (3.5-5.1); Sodium 138 mmol/L (136-145); Total Bilirubin 0.2 mg/dL (0.15-1.2); Total Protein 6.1 g/dL (6.6-8.7)
[2023-10-20] MEDS: sodium chloride 0.9% 500 ML 999 ML IV (14:20)
[2023-10-20] MEDS: ondansetron 2 mg/ML SDV 2 mL 8 MG IVP (14:21)
[2023-10-20] MEDS: cyanocobalamin 1,000 mcg/mL SDV 1000 MCG SUBCUT (14:23)
[2023-10-20 15:30] VITALS: BP 120/76; PULSE 78; RESP 18; TEMP 36.6; O2SAT 98
== END 2023-10-20 23:59 | disposition home or self-care (01) ==
LOC: ONCMED 11:14
PROVIDERS: PCP Family Medicine; Visit Provider Internal Medicine Medical Oncology
DX: C92.11 Chronic myeloid leukemia, BCR/ABL-positive, in remission (principal)
CPT/HCPCS: 80053; 85025; 96360; 96372; 96375; J1642; J2405; J3420; J7040

== ENCOUNTER 2023-11-10 14:50 | Outpatient (CLI) | payer MEDICAID, SELFPAY ==
--- NOTE | 2023-11-10 15:00 | CT_ITS ---
WS: [id number] CT LUMBAR SPINE, noncontrast. HISTORY: chronic pain, history of leukemia. TECHNIQUE: Contiguous 2.0 mm axial imaging are performed. Sagittal and coronal reformats are submitte d and reviewed. All CT scans at [facility] use at least one of these dose optimization techni ques: automated exposure control; mA and/or kV adjustment per patient size (includes targeted exams w here dose is matched to clinical indication); or iterative reconstruction. IV contrast: None DLP: 310.85 mGy.cm COMPARISON: CT lumbar spine 05/24/2015. Radiographs 07/14/2023 Normal lumbar alignment with no loss of disc space height or vertebral body height. No lucency or scl erotic changes. No fractures. Facet joints are of mildly narrowed from arthritis. No loss of vertebra l body height. Very minimal disc space narrowing. L1-2: Diffuse annular disc bulging. Mild facet arthritis. L2-3: Very mild annular disc bulging. Mild narrowing of the foramina. No high-grade stenosis or disc protrusion. L3-4: Mild annular disc bulging encroaching upon the ventral thecal sac. Mild bilateral foraminal heidy nosis. L4-5: Moderate annular disc bulging with ligamentum flavum and facet arthritis. LEFT paracentral disc protrusion contacts the LEFT lateral thecal sac. There is disc contact on the traversing L5 nerve ro ots but greater on the LEFT. Mild central with bilateral subarticular recess and foraminal stenosis. L5-S1: Mild annular disc bulging no stenosis. SI joints and visualized sacrum are normal. No destructive bone lesions. No pars defects. Atheroscler osis aorta. No aneurysm. Postsurgical changes noted in the RIGHT lower quadrant associated with the s mall bowel. No obstructive pattern. Nonobstructing calcification LEFT renal pelvis. IMPRESSION: 1. L4-5: Mild central with bilateral subarticular recess and foraminal stenosis. Facet disease and l igamentum flavum arthritis and a LEFT paracentral disc protrusion contributing to the stenosis. The g reatest disc contact is on the traversing L5 nerve roots, LEFT greater than RIGHT. 2. No lumbar spine fracture. 3. L2-3 and L3-4: Mild bilateral foraminal stenosis.
== END 2023-11-10 14:51 | disposition home or self-care (01) ==
LOC: RAD 14:50
PROVIDERS: PCP Family Medicine; Visit Provider Internal Medicine Medical Oncology
DX: M47.816 Spondylosis without myelopathy or radiculopathy, lumbar region (principal); M48.061 Spinal stenosis, lumbar region without neurogenic claudication; M51.26 Other intervertebral disc displacement, lumbar region
CPT/HCPCS: 72131

== ENCOUNTER 2023-11-18 12:24 | Oncology outpatient (recurring) (ONCR) | payer MEDICAID, SELFPAY ==
[2023-11-18 13:00] LABS: Basophils % 0.7 %; Eosinophils # 0.1 10^3/uL (0.0-0.8); Eosinophils % 1.8 %; Lymphocytes # 1.8 10^3/uL (0.8-4.8); Lymphocytes % 32.1 %; Mean Corpuscular HGB Conc 32.4 g/dL (30-55); Mean Corpuscular Hemoglobin 29.7 pg (27-33); Mean Corpuscular Volume 91.6 fl (85-98); Mean Platelet Volume 9.7 fL (7.4-10.4); Monocytes # 0.3 10^3/uL (0.2-0.9); Neutrophils # 3.37 10^3/uL (1.8-7.7); Nucleated Red Blood Cells % 0 %; Platelet Count 210 10^3/cmm (157-399); Red Blood Count 4.04 10^6/uL (3.85-5.65); Red Cell Distribution Width 13.2 % (12.1-15.1)
[2023-11-18] MEDS: sodium chloride 0.9% 1,000 ML 999 ML IV (13:13)
[2023-11-18] MEDS: ondansetron 2 mg/ML SDV 2 mL 8 MG IVP (13:14)
[2023-11-18] MEDS: cyanocobalamin 1,000 mcg/mL SDV 1000 MCG IM (13:17)
[2023-11-18 13:29] LABS: Alanine Aminotransferase 8 U/L (0-33); Albumin Level 4.2 g/dL (3.5-5.2); Alkaline Phosphatase 73 U/L (35-105); Anion Gap 11.2 (5-19); Aspartate Amino Transferase 14 U/L (0-32); Blood Urea Nitrogen 9 mg/dL (8-23); Calcium 8.6 mg/dL (8.5-10.5); Carbon Dioxide 28 mmol/L (22-29); Chloride 103 mmol/L (98-107); Globulin 2.4 g/dL (1.3-4.6); Glucose 89 mg/dL (65-115); Osmolality Calculated 284 mOsm/kg (285-295); Potassium 4.2 mmol/L (3.5-5.1); Sodium 138 mmol/L (136-145); Total Bilirubin 0.2 mg/dL (0.15-1.2); Total Protein 6.6 g/dL (6.6-8.7)
[2023-11-18 14:30] VITALS: BP 100/63; PULSE 71; RESP 16; TEMP 37.4; O2SAT 94
== END 2023-11-18 23:59 | disposition home or self-care (01) ==
LOC: ONCMED 12:25
PROVIDERS: PCP Family Medicine; Visit Provider Internal Medicine Medical Oncology
DX: C92.11 Chronic myeloid leukemia, BCR/ABL-positive, in remission (principal)
CPT/HCPCS: 80053; 85025; 96372; 96375; J1642; J2405; J3420; J7030

== ENCOUNTER 2023-12-16 12:15 | Oncology outpatient (recurring) (ONCR) | payer MEDICAID, SELFPAY ==
[2023-12-16 13:01] LABS: Basophils % 0.8 %; Eosinophils # 0.1 10^3/uL (0.0-0.8); Eosinophils % 1.2 %; Hematocrit 34.4 % (36-47); Lymphocytes # 1.2 10^3/uL (0.8-4.8); Lymphocytes % 24.2 %; Mean Corpuscular HGB Conc 32.6 g/dL (30-55); Mean Corpuscular Hemoglobin 29.8 pg (27-33); Mean Corpuscular Volume 91.5 fl (85-98); Mean Platelet Volume 9.9 fL (7.4-10.4); Monocytes # 0.2 10^3/uL (0.2-0.9); Monocytes % 4.8 %; Neutrophils # 3.47 10^3/uL (1.8-7.7); Neutrophils % 68.6 %; Nucleated Red Blood Cells % 0 %; Platelet Count 198 10^3/cmm (157-399); Red Blood Count 3.76 10^6/uL (3.85-5.65); Red Cell Distribution Width 13.4 % (12.1-15.1); White Blood Count 5.05 10^3/uL (3.29-11.43)
[2023-12-16 13:18] LABS: Alanine Aminotransferase 7 U/L (0-33); Albumin Level 4.1 g/dL (3.5-5.2); Alkaline Phosphatase 77 U/L (35-105); Anion Gap 10.7 (5-19); Aspartate Amino Transferase 14 U/L (0-32); Blood Urea Nitrogen 8 mg/dL (8-23); Calcium 8.9 mg/dL (8.5-10.5); Carbon Dioxide 27 mmol/L (22-29); Chloride 104 mmol/L (98-107); Globulin 2.3 g/dL (1.3-4.6); Glucose 86 mg/dL (65-115); Lactate Dehydrogenase 131 U/L (135-214); Osmolality Calculated 284 mOsm/kg (285-295); Potassium 3.7 mmol/L (3.5-5.1); Sodium 138 mmol/L (136-145); Total Bilirubin 0.2 mg/dL (0.15-1.2); Total Protein 6.4 g/dL (6.6-8.7)
[2023-12-16] MEDS: ondansetron 2 mg/ML SDV 2 mL 8 MG IVP (15:22)
[2023-12-16] MEDS: cyanocobalamin 1,000 mcg/mL SDV 1000 MCG IM (15:22)
[2023-12-16] MEDS: sodium chloride 0.9% 1,000 ML 999 ML IV (15:22)
[2023-12-20 19:25] LABS: BCR ABL1 (IS) 0.009 (0.000); P210 BCR ALB1 DETECTED; P210 BCR ALB1 Yes Test Yes; Prior Results NG; Source blood
== END 2023-12-19 23:59 | disposition home or self-care (01) ==
PROVIDERS: PCP Family Medicine; Visit Provider Internal Medicine Medical Oncology
DX: C92.11 Chronic myeloid leukemia, BCR/ABL-positive, in remission (principal); E53.8 Deficiency of other specified B group vitamins; Z86.711 Personal history of pulmonary embolism; G89.29 Other chronic pain; Z79.899 Other long term (current) drug therapy
CPT/HCPCS: 80053; 81206; 83615; 85025; 96360; 96372; 99214; J1642; J2405; J3420; J7030

== ENCOUNTER 2024-01-13 12:31 | Oncology outpatient (recurring) (ONCR) | payer MEDICAID, SELFPAY ==
[2024-01-13] MEDS: cyanocobalamin 1,000 mcg/mL SDV 1000 MCG IM (13:05)
[2024-01-13 13:14] LABS: Basophils % 0.9 %; Eosinophils # 0.1 10^3/uL (0.0-0.8); Eosinophils % 1.4 %; Hematocrit 35.2 % (36-47); Lymphocytes # 1.5 10^3/uL (0.8-4.8); Lymphocytes % 35.2 %; Mean Corpuscular HGB Conc 32.4 g/dL (30-55); Mean Corpuscular Hemoglobin 29.6 pg (27-33); Mean Corpuscular Volume 91.4 fl (85-98); Mean Platelet Volume 9.9 fL (7.4-10.4); Monocytes # 0.3 10^3/uL (0.2-0.9); Monocytes % 7.3 %; Neutrophils # 2.39 10^3/uL (1.8-7.7); Neutrophils % 54.7 %; Nucleated Red Blood Cells % 0 %; Platelet Count 221 10^3/cmm (157-399); Red Blood Count 3.85 10^6/uL (3.85-5.65); Red Cell Distribution Width 13.3 % (12.1-15.1); White Blood Count 4.37 10^3/uL (3.29-11.43)
[2024-01-13 13:31] LABS: Alanine Aminotransferase 9 U/L (0-33); Albumin Level 4.2 g/dL (3.5-5.2); Alkaline Phosphatase 80 U/L (35-105); Aspartate Amino Transferase 17 U/L (0-32); Blood Urea Nitrogen 12 mg/dL (8-23); Calcium 8.5 mg/dL (8.5-10.5); Carbon Dioxide 29 mmol/L (22-29); Chloride 102 mmol/L (98-107); Globulin 2.2 g/dL (1.3-4.6); Glomerular Filtration Rate 84.5 mL/min (90-130); Glucose 90 mg/dL (65-115); Osmolality Calculated 285 mOsm/kg (285-295); Sodium 138 mmol/L (136-145); Total Bilirubin 0.2 mg/dL (0.15-1.2); Total Protein 6.4 g/dL (6.6-8.7)
[2024-01-13 13:34] LABS: Anion Gap 11.1 (5-19); Potassium 4.1 mmol/L (3.5-5.1)
== END 2024-01-18 23:59 | disposition home or self-care (01) ==
LOC: ONCMED 12:31
PROVIDERS: PCP Family Medicine; Visit Provider Internal Medicine Medical Oncology
DX: C92.11 Chronic myeloid leukemia, BCR/ABL-positive, in remission (principal); Z79.899 Other long term (current) drug therapy
CPT/HCPCS: 36591; 80053; 85025; 96372; J3420

== ENCOUNTER 2024-02-10 12:37 | Oncology outpatient (recurring) (ONCR) | payer MEDICAID, SELFPAY ==
[2024-02-10 13:30] LABS: Basophils # 0.1 10^3/uL (0.0-0.1); Basophils % 1.1 %; Eosinophils # 0.1 10^3/uL (0.0-0.8); Eosinophils % 1.8 %; Hematocrit 33.3 % (36-47); Lymphocytes # 1.5 10^3/uL (0.8-4.8); Lymphocytes % 32.4 %; Mean Corpuscular HGB Conc 32.4 g/dL (30-55); Mean Corpuscular Hemoglobin 29.6 pg (27-33); Mean Corpuscular Volume 91.2 fl (85-98); Mean Platelet Volume 9.9 fL (7.4-10.4); Monocytes # 0.3 10^3/uL (0.2-0.9); Monocytes % 7.6 %; Neutrophils # 2.54 10^3/uL (1.8-7.7); Neutrophils % 56.7 %; Nucleated Red Blood Cells % 0 %; Platelet Count 202 10^3/cmm (157-399); Red Blood Count 3.65 10^6/uL (3.85-5.65); Red Cell Distribution Width 13.1 % (12.1-15.1); White Blood Count 4.48 10^3/uL (3.29-11.43)
[2024-02-10 13:41] LABS: Alanine Aminotransferase 9 U/L (0-33); Albumin Level 3.8 g/dL (3.5-5.2); Alkaline Phosphatase 91 U/L (35-105); Anion Gap 11.7 (5-19); Aspartate Amino Transferase 15 U/L (0-32); Blood Urea Nitrogen 11 mg/dL (8-23); Calcium 8.2 mg/dL (8.5-10.5); Carbon Dioxide 26 mmol/L (22-29); Chloride 105 mmol/L (98-107); Globulin 2.6 g/dL (1.3-4.6); Glomerular Filtration Rate 72.2 mL/min (90-130); Glucose 99 mg/dL (65-115); Osmolality Calculated 287 mOsm/kg (285-295); Potassium 3.7 mmol/L (3.5-5.1); Sodium 139 mmol/L (136-145); Total Bilirubin 0.2 mg/dL (0.15-1.2); Total Protein 6.4 g/dL (6.6-8.7)
[2024-02-10 14:26] LABS: Vitamin B12 657 pg/mL (232-1245)
[2024-02-10] MEDS: sodium chloride 0.9% 500 ML 700 ML IV (14:37)
[2024-02-10] MEDS: ondansetron 2 mg/ML SDV 2 mL 4 MG IVP (14:38)
[2024-02-10] MEDS: cyanocobalamin 1,000 mcg/mL SDV 1000 MCG IM (14:59)
[2024-02-10 15:30] VITALS: BP 120/78; PULSE 74; RESP 18; TEMP 36.6; O2SAT 98
== END 2024-02-18 23:59 | disposition home or self-care (01) ==
LOC: ONCMED 12:37
PROVIDERS: Nurse Practitioner Family; PCP Family Medicine; Visit Provider Internal Medicine Medical Oncology
DX: C92.11 Chronic myeloid leukemia, BCR/ABL-positive, in remission (principal); E53.8 Deficiency of other specified B group vitamins
CPT/HCPCS: 80053; 82607; 85025; 96360; 96372; 96375; J2405; J3420; J7040

== ENCOUNTER 2024-02-17 19:20 | Emergency (ER) | payer MEDICAID, SELFPAY ==
[2024-02-17 19:23] VITALS: BP 120/65; PULSE 77; RESP 16; TEMP 36.6; O2SAT 98
--- NOTE | 2024-02-17 20:32 | XRR_ITS ---
PROCEDURE INFORMATION: Exam: XR Chest Exam date and time: 02/17/2024 8:40 PM Age: 64 years old Clinical indication: Shortness of breath; Prior surgery; Surgery date: 6+ months; Surgery type: Port TECHNIQUE: Imaging protocol: Radiologic exam of the chest. Views: 1 view. COMPARISON: CT angio chest w abd pel w con 03/10/2017 10:29 PM FINDINGS: Tubes, catheters and devices: Left subclavian chest port in position, the tip terminates in the SVC. Lungs: No focal consolidation or other acute appearing pulmonary opacity. Calcified granuloma in the right lung. Pleural spaces: No pleural effusion or pneumothorax noted. Heart/Mediastinum: There is no cardiomegaly. Bones/joints: No acute osseous abnormality. Intraperitoneal space: There is no free intraperitoneal air. XR/XR chest 1V portable [id number] IMPRESSION: No acute cardiopulmonary disease.
[2024-02-17] MEDS: ketorolac 30 mg/mL INJ IVP (20:54)
[2024-02-17] MEDS: orphenadrine 30 mg/mL Inj 2 mL 60 MG IVP (20:54)
[2024-02-17] MEDS: methylPREDNISolone sod succ 125 mg/2 mL INJ IVP (20:54)
[2024-02-17 21:00] VITALS: BP 159/87; PULSE 63; RESP 17; O2SAT 97
--- NOTE | 2024-02-17 21:22 | W.ED.BACK ---
HPI - Back Pain/Injury General: Chief Complaint: Back Pain/Injury Stated Complaint: Injury Back adn Shoulder\Leggs Time Seen by Provider: 02/17/24 20:20 History of Present Illness: 64-year-old female with a history of cancer, chronic pain syndrome on Dilaudid, GERD, PE on Eliquis who presents the emergency room with upper back pain. She had she was having some sort of movement and when she did she felt a pop and now she has pain down her deltoid and into her shoulder. Having pain in her left mid thoracic back to the left side. Still hurts with movement. Tender to palpation. No bony tenderness. No focal motor deficits. She says she feels pain all the way down into her legs. And up into her neck. No saddle numbness, no urinary retention or incontinence, no focal motor deficit, no sensory deficit. no recent fever. no cough. no shortness of breath. no chest pain. no abdominal pain. no nausea or vomiting. no dysuria. no altered mental status. no edema. Review of Systems Narrative: Constitutional symptoms: Negative except as documented in HPI. Skin symptoms: Negative except as documented in HPI. Eye symptoms: Negative except as documented in HPI. ENMT symptoms: Negative except as documented in HPI. Respiratory symptoms: Negative except as documented in HPI. Cardiovascular symptoms: Negative except as documented in HPI. Gastrointestinal symptoms: Negative except as documented in HPI. Genitourinary symptoms: Negative except as documented in HPI. Musculoskeletal symptoms: Negative except as documented in HPI. Neurologic symptoms: Negative except as documented in HPI. Psychiatric symptoms: Negative except as documented in HPI. Endocrine symptoms: Negative except as documented in HPI. 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 Sister Breast cancer Grandmother Cancer Brother Pancreatic cancer Father Dementia Other CAD (coronary artery disease) Diabetes Hyperlipidemia Hypertension Lung disease Stroke Denies family history of Clotting disorder Psychiatric illness Chronic kidney disease (CKD) Suicide Anesthesia complication Bleeding disorder Social History Smoking and tobacco/nicotine status: never used tobacco/nicotine Alcohol intake: never Substance/Drug Use: unknown Adopted: No Caregiver/support person: No Lives independently: No Household members: spouse Marital status: Current occupational status: disabled Physical Exam Narrative: EXAM NARRATIVE: General: Alert, no acute distress. Skin: Warm, dry. Head: Normocephalic, atraumatic. Neck: Supple, trachea midline. Eye: Extraocular movements are intact. Ears, nose, mouth and throat: mucosa moist. Cardiovascular: Regular, Normal peripheral perfusion. Respiratory: Lungs are clear to auscultation, respirations are non-labored, breath sounds are equal, Symmetrical chest wall expansion. Gastrointestinal: Soft, Nontender, Non distended, Normal bowel sounds. Musculoskeletal: Normal ROM, no deformity. Neurological: Alert and oriented, No focal neurological deficit observed. Psychiatric: Cooperative, appropriate mood & affect. Course Vital Signs: Vital signs: Vital Signs Temperature 97.9 F 02/17/24 19:23 Pulse Rate 63 02/17/24 21:00 Respiratory Rate 17 02/17/24 21:00 Blood Pressure 159/87 02/17/24 21:00 Pulse Oximetry 97 02/17/24 21:00 Oxygen Delivery Me thod Room Air 02/17/24 21:00 MDM - Back Pain/Injury Medical Decision Making Medical decision making: Chest x-ray: No acute process. No infiltrate. No pneumothorax. No cardiomegaly. This was reviewed and interpreted by myself the ER physician. I reviewed the patient's medical record. Reexamination: Patient remains with no focal motor deficits. No altered mental status. No deformities in her shoulder. No bony tenderness. No increased work of breathing. Assessment and plan: Upper back pain Chronic pain syndrome -IV Decadron, Toradol and Norflex in the emergency room. She says this helped slightly. So I did give her some IV Dilaudid. She is on oral Dilaudid at home - Discharged home - Discussed plan with patient. Answered any questions. - Evaluation and treatment of this problem were appropriate in the emergency setting. All radiology interpretation(s) finalized by discharge Discharge Plan Discharge Patient Disposition: Home Clinical Impression: Thoracic back pain Condition: Stable Prescriptions: New cyclobenzaprine 10 mg tablet 10 mg PO Q8H Qty: 20 0RF prednisone 20 mg tablet 60 mg PO DAILY Qty: 20 0RF Rx Instructions: 3 tabs (60 mg) x 3 days. 2 tabs (40 mg) x 3 days. 1 tab (20 mg) x 3 days. 1/2 tab (10 mg) x 4 days diclofenac sodium 50 mg tablet,delayed release (DR/EC) 50 mg PO Q12H Qty: 20 0RF No Action prednisone 10 mg tablet 10 mg PO DAILY Qty: 44 0RF Rx Instructions: Take 4 tabs by mouth for 4 days, then 3 tabs x 4 days, 2 tabs x 4 days, 1 tabs x 8 days fluticasone propionate 50 mcg/actuation spray,suspension See Rx Instructions .ROUTE .COMPLEX Qty: 16 3RF Dose Instruction: SHAKE LIQUID AND USE 2 SPRAYS IN EACH NOSTRIL DAILY Rx Instructions: SHAKE LIQUID AND USE 2 SPRAYS IN EACH NOSTRIL DAILY docusate sodium 100 mg capsule 100 mg PO BID Qty: 180 0RF sennosides-docusate sodium [Stimulant Laxative Plus] 8.6-50 mg tablet 1 tab-cap PO DAILY Qty: 60 6RF Rx Instructions: Take 1 to 3 tablets by mouth three times daily as needed pantoprazole 40 mg tablet,delayed release (DR/EC) 40 mg PO BID Qty: 180 3RF levothyroxine 50 mcg capsule 50 mcg PO DAILY Qty: 90 2RF potassium chloride 10 mEq tablet extended release 10 meq PO DAILY Qty: 90 3RF promethazine 25 mg tablet 25 mg PO BID PRN (Reason: nausea and vomiting) Qty: 120 3RF gabapentin 300 mg capsule See Rx Instructions .ROUTE .COMPLEX Qty: 270 3RF Dose Instruction: TAKE 1 CAPSULE BY MOUTH THREE TIMES DAILY Rx Instructions: TAKE 1 CAPSULE BY MOUTH THREE TIMES DAILY cetirizine 10 mg tablet 10 mg PO DAILY Qty: 30 3RF ewrvmseeau-ufixrlchdmzbq-eynn 50-325-40 mg capsule 1 cap PO Q4H PRN (Reason: pain) Qty: 120 5RF Rx Instructions: max 6 tablets daily ropinirole 1 mg tablet 1 mg PO BID Qty: 180 3RF ferrous sulfate [FeroSul] 325 mg (65 mg iron) tablet See Rx Instructions .ROUTE .COMPLEX Qty: 180 0RF Dose Instruction: TAKE 1 TABLET BY MOUTH TWICE DAILY Rx Instructions: TAKE 1 TABLET BY MOUTH TWICE DAILY diazepam 5 mg tablet 5 mg PO BID Qty: 60 2RF Iclusig 15 mg tablet See Rx Instructions .ROUTE .COMPLEX Qty: 30 0RF Dose Instruction: TAKE 1 TABLET (15 MG) BY MOUTH ONCE DAILY Rx Instructions: TAKE 1 TABLET (15 MG) BY MOUTH ONCE DAILY venlafaxine 150 mg capsule,extended release 24hr 150 mg PO DAILY Qty: 90 3RF ondansetron 4 mg tablet,disintegrating See Rx Instructions .ROUTE .COMPLEX Qty: 20 0RF Dose Instruction: DISSOLVE 1 TABLET ON THE TONGUE EVERY 6 HOURS NEEDED FOR NAUSEA OR VOMITING Rx Instructions: DISSOLVE 1 TABLET ON THE TONGUE EVERY 6 HOURS NEEDED FOR NAUSEA OR VOMITING sucralfate 1 gram tablet See Rx Instructions .ROUTE .COMPLEX Qty: 120 0RF Dose Instruction: TAKE 1 TABLET BY MOUTH FOUR TIMES DAILY Rx Instructions: TAKE 1 TABLET BY MOUTH FOUR TIMES DAILY Eliquis 5 mg tablet See Rx Instructions .ROUTE .COMPLEX Qty: 60 0RF Dose Instruction: TAKE 1 TABLET BY MOUTH TWICE DAILY Rx Instructions: TAKE 1 TABLET BY MOUTH TWICE DAILY acyclovir 400 mg tablet See Rx Instructions .ROUTE .COMPLEX Qty: 60 0RF Dose Instruction: TAKE 1 TABLET BY MOUTH TWICE DAILY Rx Instructions: TAKE 1 TABLET BY MOUTH TWICE DAILY montelukast 10 mg tablet See Rx Instructions .ROUTE .COMPLEX Qty: 90 0RF Dose Instruction: TAKE 1 TABLET BY MOUTH DAILY Rx Instructions: TAKE 1 TABLET BY MOUTH DAILY hydromorphone 2 mg tablet 2 mg PO QID 30 Days Qty: 120 0RF methocarbamol 750 mg tablet 750 mg PO Q6H PRN (Reason: spasms) Qty: 20 0RF Naprosyn 500 mg tablet 500 mg PO BID PRN (Reason: pain) Qty: 20 0RF Discharge Orders: Discharge ED (Routine); Ordered 02/17/24 Ordered By: Laxmi Mcfarland Referrals: Daniela Villa MD [Primary Care Provider] - 4-7 days Discharge Diet: Usual diet Discharge Activity: Increase activity as tolerated Patient Instructions: Back Pain (ED), Opioid Safety, Pain Management Activity Restrictions/Additional Instructions: Thank you for choosing [facility] for your healthcare needs today. Please realize this is an emergency room and that we are providing you with a medical screening exam and this may not be complete and all inclusive of all the testing and or work up that you may need to determine your ailment or severity of your illness. You have been screened and evaluated and felt safe for discharge. Health conditions do change or evolve sometimes and as such it is important that you follow up with your Primary Doctor to be re checked, 3-5 days is a general good time frame for follow up. You are always welcome to return to the ED for re assessment if your symptoms are worsening or you have new concerns Coding Level of Care Code ED Enzyme Chemist for Cassie Webber
[2024-02-17 21:30] VITALS: BP 121/65; PULSE 63; O2SAT 98
[2024-02-17] MEDS: HYDROmorphone 1 mg/mL INJ 1 mL 2 MG IVP (21:32)
[2024-02-17 21:49] VITALS: BP 129/69; PULSE 67; RESP 14; O2SAT 97
== END 2024-02-17 21:50 | disposition home or self-care (01) ==
PROVIDERS: Emergency Provider Emergency Medicine; PCP Family Medicine
DX: M54.6 Pain in thoracic spine (principal); Z79.01 Long term (current) use of anticoagulants
CPT/HCPCS: 71045; 96374; 96375; 99284; J1170; J1642; J1885; J2360; J2919

== ENCOUNTER 2024-03-09 12:09 | Oncology outpatient (recurring) (ONCR) | payer MEDICAID, SELFPAY ==
[2024-03-09 12:34] LABS: Basophils % 0.9 %; Eosinophils # 0.1 10^3/uL (0.0-0.8); Eosinophils % 1.4 %; Hematocrit 36.2 % (36-47); Lymphocytes # 1.4 10^3/uL (0.8-4.8); Lymphocytes % 31.1 %; Mean Corpuscular HGB Conc 32.6 g/dL (30-55); Mean Corpuscular Hemoglobin 29.1 pg (27-33); Mean Corpuscular Volume 89.2 fl (85-98); Mean Platelet Volume 9.7 fL (7.4-10.4); Monocytes # 0.3 10^3/uL (0.2-0.9); Monocytes % 5.7 %; Neutrophils # 2.66 10^3/uL (1.8-7.7); Neutrophils % 60.4 %; Nucleated Red Blood Cells % 0 %; Platelet Count 216 10^3/cmm (157-399); Red Blood Count 4.06 10^6/uL (3.85-5.65); Red Cell Distribution Width 13.1 % (12.1-15.1)
[2024-03-09 12:56] LABS: Alanine Aminotransferase 9 U/L (0-33); Albumin Level 4.1 g/dL (3.5-5.2); Alkaline Phosphatase 86 U/L (35-105); Anion Gap 10.2 (5-19); Aspartate Amino Transferase 17 U/L (0-32); Blood Urea Nitrogen 8 mg/dL (8-23); Calcium 8.8 mg/dL (8.5-10.5); Carbon Dioxide 29 mmol/L (22-29); Chloride 104 mmol/L (98-107); Globulin 2.7 g/dL (1.3-4.6); Glomerular Filtration Rate 100.6 mL/min (90-130); Glucose 88 mg/dL (65-115); Lactate Dehydrogenase 142 U/L (135-214); Osmolality Calculated 286 mOsm/kg (285-295); Potassium 4.2 mmol/L (3.5-5.1); Sodium 139 mmol/L (136-145); Total Bilirubin 0.2 mg/dL (0.15-1.2); Total Protein 6.8 g/dL (6.6-8.7)
[2024-03-09] MEDS: sodium chloride 0.9% 1,000 ML 999 ML IV (15:01)
[2024-03-09] MEDS: ondansetron 2 mg/ML SDV 2 mL 8 MG IVP (15:06)
[2024-03-09] MEDS: cyanocobalamin 1,000 mcg/mL SDV 1000 MCG IM (15:11)
[2024-03-15 22:15] LABS: BCR ABL1 (IS) 0.008 (0.000); P210 BCR ALB1 DETECTED; P210 BCR ALB1 Yes Test Yes; Prior Results NG; Source Whole Blood
== END 2024-03-19 23:59 | disposition home or self-care (01) ==
PROVIDERS: PCP Family Medicine; Visit Provider Internal Medicine Medical Oncology
DX: C92.11 Chronic myeloid leukemia, BCR/ABL-positive, in remission (principal); E53.8 Deficiency of other specified B group vitamins; Z79.899 Other long term (current) drug therapy; Z86.711 Personal history of pulmonary embolism; G89.29 Other chronic pain
CPT/HCPCS: 80053; 81206; 83615; 85025; 96365; 96372; 96375; 99214; J2405; J3420; J7030

== ENCOUNTER 2024-04-06 13:56 | Oncology outpatient (recurring) (ONCR) | payer MEDICAID, SELFPAY ==
[2024-04-06 14:25] LABS: Basophils % 0.5 %; Eosinophils # 0.1 10^3/uL (0.0-0.8); Hematocrit 37.9 % (36-47); Lymphocytes # 1.5 10^3/uL (0.8-4.8); Lymphocytes % 19.3 %; Mean Corpuscular HGB Conc 32.5 g/dL (30-55); Mean Corpuscular Hemoglobin 28.9 pg (27-33); Mean Platelet Volume 9.8 fL (7.4-10.4); Monocytes # 0.4 10^3/uL (0.2-0.9); Monocytes % 5.2 %; Neutrophils # 5.62 10^3/uL (1.8-7.7); Neutrophils % 73.6 %; Nucleated Red Blood Cells % 0 %; Platelet Count 189 10^3/cmm (157-399); Red Blood Count 4.26 10^6/uL (3.85-5.65); Red Cell Distribution Width 13.2 % (12.1-15.1); White Blood Count 7.65 10^3/uL (3.29-11.43)
[2024-04-06] MEDS: alteplase 1 mg/mL SDV 2 mL 2 MG INTRACATH (14:40)
[2024-04-06] MEDS: cyanocobalamin 1,000 mcg/mL SDV 1000 MCG IM (14:41)
[2024-04-06 14:43] LABS: Alanine Aminotransferase 7 U/L (0-33); Albumin Level 4.3 g/dL (3.5-5.2); Alkaline Phosphatase 108 U/L (35-105); Anion Gap 15.4 (5-19); Aspartate Amino Transferase 15 U/L (0-32); Blood Urea Nitrogen 10 mg/dL (8-23); Calcium 9.2 mg/dL (8.5-10.5); Carbon Dioxide 27 mmol/L (22-29); Chloride 100 mmol/L (98-107); Globulin 2.9 g/dL (1.3-4.6); Glomerular Filtration Rate 72.2 mL/min (90-130); Glucose 95 mg/dL (65-115); Osmolality Calculated 285 mOsm/kg (285-295); Potassium 4.4 mmol/L (3.5-5.1); Sodium 138 mmol/L (136-145); Total Bilirubin 0.3 mg/dL (0.15-1.2); Total Protein 7.2 g/dL (6.6-8.7)
== END 2024-04-19 23:59 | disposition home or self-care (01) ==
LOC: ONCMED 13:57
PROVIDERS: Nurse Practitioner Family; PCP Family Medicine; Visit Provider Internal Medicine Medical Oncology
DX: C92.11 Chronic myeloid leukemia, BCR/ABL-positive, in remission (principal); Z79.899 Other long term (current) drug therapy
CPT/HCPCS: 36415; 36593; 80053; 85025; 96372; J2997; J3420

== ENCOUNTER 2024-05-04 14:03 | Oncology outpatient (recurring) (ONCR) | payer MEDICAID, SELFPAY ==
[2024-05-04 14:42] LABS: Basophils % 0.9 %; Eosinophils # 0.1 10^3/uL (0.0-0.8); Eosinophils % 1.5 %; Hematocrit 34.7 % (36-47); Lymphocytes # 1.4 10^3/uL (0.8-4.8); Lymphocytes % 30.5 %; Mean Corpuscular Volume 90.6 fl (85-98); Mean Platelet Volume 9.8 fL (7.4-10.4); Monocytes # 0.3 10^3/uL (0.2-0.9); Monocytes % 6.6 %; Neutrophils # 2.82 10^3/uL (1.8-7.7); Neutrophils % 60.1 %; Nucleated Red Blood Cells % 0 %; Platelet Count 185 10^3/cmm (157-399); Red Blood Count 3.83 10^6/uL (3.85-5.65); White Blood Count 4.69 10^3/uL (3.29-11.43)
[2024-05-04 15:01] LABS: Alanine Aminotransferase 8 U/L (0-33); Albumin Level 4.1 g/dL (3.5-5.2); Alkaline Phosphatase 85 U/L (35-105); Anion Gap 14.1 (5-19); Aspartate Amino Transferase 15 U/L (0-32); Blood Urea Nitrogen 9 mg/dL (8-23); Calcium 8.7 mg/dL (8.5-10.5); Carbon Dioxide 28 mmol/L (22-29); Chloride 104 mmol/L (98-107); Globulin 2.5 g/dL (1.3-4.6); Glomerular Filtration Rate 100.6 mL/min (90-130); Glucose 92 mg/dL (65-115); Osmolality Calculated 292 mOsm/kg (285-295); Potassium 4.1 mmol/L (3.5-5.1); Sodium 142 mmol/L (136-145); Total Bilirubin 0.2 mg/dL (0.15-1.2); Total Protein 6.6 g/dL (6.6-8.7)
[2024-05-04] MEDS: sodium chloride 0.9% 500 ML 999 ML IV (16:00)
[2024-05-04 16:35] VITALS: BP 124/76; PULSE 72; RESP 16; TEMP 36.9; O2SAT 99
[2024-05-04] MEDS: cyanocobalamin 1,000 mcg/mL SDV 1000 MCG IM (16:47)
[2024-05-04 16:51] VITALS: BP 124/78; PULSE 84; RESP 18; TEMP 36.8; O2SAT 98
== END 2024-05-20 23:59 | disposition home or self-care (01) ==
LOC: ONCMED 14:03
PROVIDERS: Nurse Practitioner Family; PCP Family Medicine; Visit Provider Internal Medicine Medical Oncology
DX: C92.11 Chronic myeloid leukemia, BCR/ABL-positive, in remission (principal); Z79.899 Other long term (current) drug therapy
CPT/HCPCS: 80053; 85025; 96360; 96372; J3420; J7040

== ENCOUNTER 2024-06-01 09:21 | Oncology outpatient (recurring) (ONCR) | payer MEDICAID, SELFPAY ==
[2024-06-01] MEDS: alteplase 1 mg/mL SDV 2 mL 2 MG INTRACATH ×2 (10:10→12:49)
[2024-06-01 10:12] LABS: Eosinophils # 0.1 10^3/uL (0.0-0.8); Eosinophils % 1.9 %; Hematocrit 39.3 % (36-47); Lymphocytes # 1.5 10^3/uL (0.8-4.8); Lymphocytes % 35.1 %; Mean Corpuscular HGB Conc 32.3 g/dL (30-55); Mean Corpuscular Hemoglobin 29.6 pg (27-33); Mean Corpuscular Volume 91.6 fl (85-98); Mean Platelet Volume 9.9 fL (7.4-10.4); Monocytes # 0.3 10^3/uL (0.2-0.9); Neutrophils # 2.32 10^3/uL (1.8-7.7); Neutrophils % 55.8 %; Nucleated Red Blood Cells % 0 %; Platelet Count 203 10^3/cmm (157-399); Red Blood Count 4.29 10^6/uL (3.85-5.65); Red Cell Distribution Width 13.7 % (12.1-15.1); White Blood Count 4.16 10^3/uL (3.29-11.43)
[2024-06-01 10:25] LABS: Alanine Aminotransferase 7 U/L (0-33); Albumin Level 4.4 g/dL (3.5-5.2); Alkaline Phosphatase 109 U/L (35-105); Aspartate Amino Transferase 15 U/L (0-32); Blood Urea Nitrogen 6 mg/dL (8-23); Calcium 9.1 mg/dL (8.5-10.5); Carbon Dioxide 29 mmol/L (22-29); Chloride 105 mmol/L (98-107); Globulin 2.7 g/dL (1.3-4.6); Glomerular Filtration Rate 84.2 mL/min (90-130); Glucose 93 mg/dL (65-115); Osmolality Calculated 291 mOsm/kg (285-295); Sodium 142 mmol/L (136-145); Total Bilirubin 0.3 mg/dL (0.15-1.2); Total Protein 7.1 g/dL (6.6-8.7)
[2024-06-01] MEDS: cyanocobalamin 1,000 mcg/mL SDV 1000 MCG IM (12:50)
[2024-06-01] MEDS: sodium chloride 0.9% 1,000 ML 999 ML IV (13:27)
[2024-06-01] MEDS: ondansetron 2 mg/ML SDV 2 mL 8 MG IVP (13:28)
[2024-06-06 11:10] LABS: BCR ABL1 (IS) 0.016 (0.000); P210 BCR ALB1 DETECTED; P210 BCR ALB1 Yes Test Yes; Prior Results NG; Source blood
== END 2024-06-19 23:59 | disposition home or self-care (01) ==
PROVIDERS: Nurse Practitioner Family; PCP Family Medicine; Visit Provider Internal Medicine Medical Oncology
DX: C92.11 Chronic myeloid leukemia, BCR/ABL-positive, in remission (principal); Z79.899 Other long term (current) drug therapy; E53.8 Deficiency of other specified B group vitamins; Z86.711 Personal history of pulmonary embolism; G89.29 Other chronic pain
CPT/HCPCS: 36415; 36593; 80053; 81206; 85025; 96360; 96372; 96375; 99214; J2405; J2997; J3420; J7030

== ENCOUNTER 2024-06-29 14:35 | Oncology outpatient (recurring) (ONCR) | payer MEDICAID, SELFPAY ==
[2024-06-29] MEDS: cyanocobalamin 1,000 mcg/mL SDV 1000 MCG IM (15:32)
[2024-06-29 15:48] LABS: Eosinophils # 0.1 10^3/uL (0.0-0.8); Eosinophils % 2.4 %; Hematocrit 35.3 % (36-47); Lymphocytes # 1.3 10^3/uL (0.8-4.8); Mean Corpuscular Hemoglobin 29.3 pg (27-33); Mean Corpuscular Volume 91.5 fl (85-98); Mean Platelet Volume 10.6 fL (7.4-10.4); Monocytes # 0.2 10^3/uL (0.2-0.9); Monocytes % 5.3 %; Neutrophils # 2.42 10^3/uL (1.8-7.7); Neutrophils % 58.8 %; Nucleated Red Blood Cells % 0 %; Platelet Count 199 10^3/cmm (157-399); Red Blood Count 3.86 10^6/uL (3.85-5.65); Red Cell Distribution Width 14.4 % (12.1-15.1); White Blood Count 4.12 10^3/uL (3.29-11.43)
[2024-06-29 15:58] LABS: Alanine Aminotransferase 8 U/L (0-33); Albumin Level 4.3 g/dL (3.5-5.2); Alkaline Phosphatase 88 U/L (35-105); Anion Gap 12.9 (5-19); Aspartate Amino Transferase 16 U/L (0-32); Blood Urea Nitrogen 7 mg/dL (8-23); Calcium 8.6 mg/dL (8.5-10.5); Carbon Dioxide 27 mmol/L (22-29); Chloride 103 mmol/L (98-107); Globulin 2.6 g/dL (1.3-4.6); Glomerular Filtration Rate 84.2 mL/min (90-130); Glucose 90 mg/dL (65-115); Osmolality Calculated 286 mOsm/kg (285-295); Potassium 3.9 mmol/L (3.5-5.1); Sodium 139 mmol/L (136-145); Total Bilirubin 0.2 mg/dL (0.15-1.2); Total Protein 6.9 g/dL (6.6-8.7)
== END 2024-07-20 23:59 | disposition home or self-care (01) ==
LOC: ONCMED 14:37
PROVIDERS: Nurse Practitioner Family; PCP Family Medicine; Visit Provider Internal Medicine Medical Oncology
DX: C92.11 Chronic myeloid leukemia, BCR/ABL-positive, in remission (principal); Z79.899 Other long term (current) drug therapy
CPT/HCPCS: 80053; 85025; 96372; J3420

== ENCOUNTER 2024-07-04 15:57 | Outpatient (CLI) | payer MEDICAID, SELFPAY ==
--- NOTE | 2024-07-04 16:11 | MR_ITS ---
WS: [id number] MRI LUMBAR SPINE NONCONTRAST TECHNIQUE: Sagittal T1, T2 and STIR imaging. Axial T1 and T2 imaging. CLINICAL INFORMATION: Degeneration of intervertebral disc space COMPARISON: MRI 2016 FINDINGS: Mild lumbar curve. No acute compression. Disc bulging worse at L4-5. L1-L2: Normal. L2-L3: Mild facet arthropathy. Spinal canal and foramen are patent. L3-L4: Mild annular bulging. Moderate facet arthropathy. Mild LEFT foraminal narrowing. L4-L5: New LEFT paracentral and subarticular disc protrusion. Impingement LEFT L5 nerve root. Mild LE FT foraminal narrowing. Mild central canal stenosis. Moderate facet arthropathy. L5-S1: Mild annular bulging. Moderate facet arthropathy. Foramen are patent. Visualized pelvic bony structures: Normal. Paravertebral soft tissues: Normal. MR/MR lumbar spine wo con* [id number] IMPRESSION: 1. LEFT paracentral and subarticular disc protrusion L4-5 impinges the nixon ing LEFT L5 nerve root in the subarticular recess. Mild central canal stenosis. Mild LEFT foraminal narrowing. 2. Moderate facet arthropathy L3-L4 and L4-L5.
== END 2024-07-04 15:58 | disposition home or self-care (01) ==
LOC: RAD 15:58
PROVIDERS: PCP Family Medicine; Visit Provider Nurse Practitioner Adult Health
DX: M51.360 Other intervertebral disc degeneration, lumbar region with discogenic back pain only (principal); M54.16 Radiculopathy, lumbar region; M51.26 Other intervertebral disc displacement, lumbar region
CPT/HCPCS: 72148

== ENCOUNTER → 2024-07-11 10:04 | Outpatient (BNVA) | payer MEDICAID, SELFPAY | PROVIDERS: PCP Family Medicine; Referring Provider Nurse Practitioner Family; Visit Provider Student in an Organized Health Care Education/Training Program | DX: C92.11 Chronic myeloid leukemia, BCR/ABL-positive, in remission (principal) | CPT/HCPCS: 99204 ==

== ENCOUNTER 2024-07-31 16:48 | Observation (INO) | payer MEDICAID, SELFPAY ==
[2024-07-31] VITALS (20 sets, daily range): BP systolic 113–156; BP diastolic 61–82; PULSE 65–76; RESP 16–20; TEMP 36.3–37.3; O2SAT 95–100; BMI 23.0
--- NOTE | 2024-07-31 12:50 | SC_ITS ---
WS: [id number] INTRAOPERATIVE TECHNIQUE: 2 Spot fluoroscopic images for intraoperative purposes. FLUOROSCOPY TIME: 3.3 seconds CLINICAL INFORMATION: port placement FINDINGS: Residual catheter fragment in the LEFT innominate vein extending into the SVC. No pneumothorax. No ot her acute findings. SC/C-arm Fluoroscopy [id number] IMPRESSION: See above discussion. Findings discussed with Yan Gomez MD at 07/31/2024 3:24 PM.
--- NOTE | 2024-07-31 13:40 | W.PM.OPSUD ---
Surgery/Procedure H&P Update DATE OF PROCEDURE: July 31, 2024 DATE H&P PERFORMED: 07/11/24 H&P UPDATE INFORMATION: I have reviewed H&P completed within last 30 days, I have examined patient prior to procedure and No changes to prior documentation PLANNED PROCEDURE: Operation Date: 07/31/24 14:10 Proposed Procedures p Portacath Placement 59919, [id number], C92.11(Not Applicable) - Yan Gomez MD
--- NOTE | 2024-07-31 13:41 | PM.MISC ---
Miscellaneous Note Note: Patient is ok placing new port on either side
[2024-07-31] MEDS: sodium chloride 0.9% 1,000 ML 30 ML IV ×2 (13:55→18:30)
[2024-07-31] MEDS: ceFAZolin 2,000 mg SDV 2000 MG IVP (13:58)
--- NOTE | 2024-07-31 13:59 | P.ANESASSM_ITS ---
Pre-Anesthetic Assessment Height/Weight: Height 5 ft 3 in Weight 130 lb Temp Pulse Resp BP Pulse Ox O2 Del Method 99.1 F 76 17 137/73 97 Room Air 07/31/24 13:26 07/31/24 13:26 07/31/24 13:26 07/31/24 13:26 07/31/24 13:26 07/31/24 13:27 Preop Diagnosis: needing port replacement Operation Date: 07/31/24 14:10 Proposed Procedures p Portacath Placement 06140, [id number], C92.11(Not Applicable) - Yan Gomez MD Was Beta Valentin taken within 24 hours: N/A Was Clonidine taken within 24 hours: N/A Last intake: Intake Last Liquid Date 07/31/24 Last Liquid Time 08:00 Last Solid Date 07/30/24 Last Solid Time 10:00 Social No alcohol and No tobacco Exam alert, oriented x 3, clear to auscultation bilaterally and regular rate & rhythm Airway Submandibular: within normal limits Cervical ROM: within normal limits Mallampati: Class III Dentition: false Anesthetic Plan ASA status: 3 Anesthesia: MAC Other: No prior issues with anesthesia. Patient requiring port replacement due to gordon motherapy for CML NPO since yesterday History of hypothyroidism on Synthroid GERD on Protonix Denies any pulmonary or cardiac issues Labs 06/29/2024 reviewed and acceptable for procedure Plan for MAC anesthetic Medications/Allergies Home Medications Medication Instructions Recorded Confirmed Last Taken Type levothyroxine 50 mcg capsule 50 mcg PO DAILY #90 caps 03/01/23 07/31/24 07/30/24 21:00 Rx venlafaxine 150 mg 150 mg PO DAILY #90 caps 02/07/24 07/31/24 07/30/24 21:00 Rx capsule,extended release 24 hr potassium chloride 10 mEq 10 meq PO DAILY #90 tabs 04/10/24 07/31/24 07/30/24 21:00 Rx tablet,extended release promethazine 25 mg tablet 25 mg PO BID PRN nausea and 04/10/24 07/31/24 07/30/24 21:00 Rx vomiting #120 tabs ywwsutogcv-zxnouwcjcayum-mgqzscmg 1 tab PO Q4H PRN pain #120 tabs 04/13/24 07/31/24 07/31/24 07:30 Rx 50 mg-325 mg-40 mg tablet pantoprazole 40 mg tablet,delayed 40 mg PO BID #180 tabs 04/13/24 07/31/24 07/30/24 21:00 Rx release diazepam 5 mg tablet 5 mg PO BID anxiety #60 tabs 06/14/24 07/31/24 07/30/24 21:00 Rx ropinirole 1 mg tablet 1 mg PO BID #60 tabs 06/29/24 07/31/24 07/30/24 21:00 Rx docusate sodium 100 mg capsule 100 mg PO BID #180 caps 07/04/24 07/27/24 07/25/24 Rx hydromorphone 2 mg tablet 4 mg PO QID 07/27/24 07/31/24 07/31/24 08:00 History acyclovir 400 mg tablet 400 mg PO BID 07/31/24 07/31/24 07/30/24 History apixaban 5 mg tablet (Eliquis) 5 mg PO BID 07/31/24 07/31/24 07/28/24 History ferrous sulfate 325 mg (65 mg 325 mg PO BID 07/31/24 07/31/24 07/28/24 History iron) tablet (FeroSul) fluticasone propionate 50 2 spray intranasal DAILY 07/31/24 07/31/24 07/29/24 History mcg/actuation nasal spray,suspension montelukast 10 mg tablet 10 mg PO DAILY 07/31/24 07/31/24 07/30/24 21:00 History ondansetron 4 mg disintegrating 4 mg PO PRN PRN Nausea 07/31/24 07/31/24 07/30/24 21:00 History tablet ponatinib 15 mg tablet (Iclusig) 15 mg PO DAILY 07/31/24 07/31/24 07/30/24 21:00 History sennosides 8.6 mg-docusate sodium 1 tab-cap PO PRN PRN Constipation 07/31/24 07/31/24 07/24/24 History 50 mg tablet (Stimulant Laxative Plus) sucralfate 1 gram tablet 1 g PO QID 07/31/24 07/31/24 07/30/24 21:00 History Allergies Allergy/AdvReac Type Severity Reaction Status Date / Time amitriptyline [From [facility]] Allergy Unknown Unknown Verified 07/11/24 10:35 codeine Allergy Unknown Unknown Verified 07/11/24 10:35 latex Allergy Unknown Unknown Verified 07/11/24 10:35 morphine Allergy Unknown Unknown Verified 07/11/24 10:35 olanzapine [From Zyprexa] Allergy Unknown Unknown Verified 07/11/24 10:35 Penicillins Allergy Unknown Unknown Verified 07/11/24 10:35 Current Medications Generic Name Dose Route Start Last Admin Trade Name Freq PRN Reason Stop Dose Admin Sodium Chloride 1,000 mls @ 30 mls/hr 07/31/24 13:00 07/31/24 13:55 Sodium Chloride 0.9% IV 08/01/24 12:59 30 mls/hr .Q24H DELANO Administration PFSH Anesthesia Medical History (Updated 07/11/24 @ 10:59 by Yan Gomez MD) Port-A-Cath in place GERD (gastroesophageal reflux disease) Peptic ulcer disease Chronic migraine Hypothyroidism Atrophic vaginitis DDD (degenerative disc disease) Anxiety and depression Fibromyalgia B12 deficiency Hx pulmonary embolism Surgical History History of esophagogastroduodenoscopy (EGD) (2014) History of colonoscopy (2013) History of esophagogastroduodenoscopy (EGD) (2013) 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 Hx of colectomy History of lumpectomy of right breast Hx of appendectomy History of bone marrow biopsy Hx of neck surgery Cervical laminectomy with bone graft Hx of right knee surgery History of total abdominal hysterectomy Hx of bilateral oophorectomy Family History Mother No problems noted. Sister Breast cancer Grandmother Cancer Brother Pancreatic cancer Father Dementia Other CAD (coronary artery disease) Diabetes Hyperlipidemia Hypertension Lung disease Stroke Denies family history of Clotting disorder Psychiatric illness Chronic kidney disease (CKD) Suicide Anesthesia complication Bleeding disorder Social History Smoking and tobacco/nicotine status: never used tobacco/nicotine Alcohol intake: never Substance/Drug Use: unknown Adopted: No Caregiver/support person: No Lives independently: No Household members: spouse Marital status: Current occupational status: disabled Data Anesthesia Cardiac Studies: No Data to Display
[2024-07-31] MEDS: BUPivacaine 0.25% INJ 30 mL INJECTION (14:21)
[2024-07-31] MEDS: heparin, porcine 1,000 unit/mL INJ 10 mL 10000 UNIT INJECTION (14:22)
[2024-07-31] MEDS: lidocaine-epi 1% PF 1:200,000 30 mL SDV INJECTION (14:22)
--- NOTE | 2024-07-31 15:18 | P.BOP_ITS ---
Date of Procedure: 07/31/24 Surgeon: Dr. Gomez Flight Engineer Helicopter(s): Dr. Nava Procedure(s) performed: aborted left sublcavian port replacement Findings of the procedure(s): partial removal of port. Retained catheter in subclavian vein, unable to retrieve in OR. Estimated blood loss: 10cc Specimen(s) removed: port, cuff and 10cm of catheter removed and sent for cultures Post-operative diagnosis: chronic myeloid leukemia
--- NOTE | 2024-07-31 15:37 | PM.MISC ---
Miscellaneous Note Note: Patient and family updated with regards to the surgery findings. All questions answered. Transfer to [facility] pending.
--- NOTE | 2024-07-31 15:39 | P.OP_ITS ---
Date of Procedure: 07/31/2024 Surgeon: Dr. Gomez Textile Machinery Instructor(s): Dr. Nava Procedure(s) performed: Aborted left subclavian port replacement Findings of the procedure(s): Approximately 7 cm of retained catheter in the left subclavian vein. Removed 10 cm of catheter, cuff, and port. Estimated blood loss: 10 cc Specimen(s) removed: Port, cuff, 10 cm of catheter. Post-operative diagnosis: Chronic myeloid leukemia Pathology: N/A Implant(s): N/A Anesthesia: MAC Complications: Retained catheter in left subclavian vein Brief history/preop diagnosis: 64-year-old female who presented with dysfunctional port. Patient needs port for chemotherapy. Current port was placed 10 years ago and stopped working recently. Discussed risk and benefits and patient agreed to proceed with left subclavian port replacement. Full operative report: Consent was obtained in the preoperative area. Patient was brought into the OR. SCDs were on and working. Prophylactic antibiotics were administered. MAC was induced. I proceeded to infiltrate the site of the port on the left chest using 1% lidocaine with epinephrine. Using a combination of blunt dissection and cautery I dissected down to the port. I was able to dissect the port together with the cuff and 10 cm of catheter easily. I then was unable to retrieve any more catheter once I reached the level of the clavicle. I then called Dr. Nava who is my senior statistical programmer for assistance. Intraoperative fluoroscopy was used to identify the location in which additional dissection became difficult. I proceeded to continue pulling the catheter together with a combination of blunt dissection, and at this point the catheter broke. Dr. Nava scrubbed and attempted to visualize the retained portion of the catheter without success. Intraoperative fluoroscopy demonstrated about 7 cm of retained catheter in the subclavian vein. At this point the decision was made to abort the procedure. Adequate hemostasis was achieved using pressure. The site closest to the subclavian vein was obliterated with a ymhrml-ht-bldzf stitch using 3-0 Vicryl. Deep dermal layer was closed using 3-0 Vicryl. Skin was used using 4-0 Monocryl and Steri-Strips and benzoin. The patient woke up from MAC and was transferred to the PACU. I discussed the intraoperative findings with the patient and the family in PACU. Condition: Stable Dispostion: Floor. Transfer to [facility] for IR retrieval of retained catheter pending.
[2024-07-31] MEDS: fentaNYL 50 mcg/mL INJ 2mL IVP (15:40)
--- NOTE | 2024-07-31 15:58 | PC.NURSE ---
1542 - Dr Melgoza notified of pts complaint of pain radiating down left arm and through back - pt denies shortness of breath
[2024-07-31] MEDS: HYDROmorphone 1 mg/mL INJ 1 mL 0.2 MG IVP (18:30)
--- NOTE | 2024-07-31 18:55 | PM.OP ---
Operative Report Date of procedure: July 31, 2024 Surgeon: Al Nava, DO Procedure: Dr. Gomez called me from the operating room walks in the clinic and explained that this patient had a 12-year-old malfunctioning Mediport which he was removing and intending to replace in the left subclavian vein. He reported that the catheter was tightly lodged below the clavicle and he was unable to remove it. The only option at that point was to continue trying to remove the catheter surgically. The aged catheter into 2 pieces under the medial aspect of the clavicle. I scrubbed in to assist. Fluoroscopy showed the distal portion of the remaining catheter the deep to the proximal clavicle on the left side. With exploration of the incision, I was unable to palpate any part of the catheter. The decision was made to close the patient and consult or transfer to interventional radiology to attempt removal of remaining part of the catheter. Another option is to leave the remaining portion of the catheter, which is tightly lodged into place, in its current position. It has already been there for [address] Gomez the incision and transferred the patient for interventional radiology.
--- NOTE | 2024-07-31 19:16 | PC.NURSE ---
Report given to Fritz ESCALANTE at [facility] at this time.
--- NOTE | 2024-07-31 19:23 | NUR.SHIFT ---
Clifford at [facility] Notified of transfer at this time.
--- NOTE | 2024-07-31 20:17 | PC.NURSE ---
Avinash Basalt arrived to transport patient to [facility]. Patient left floor at 2014.
--- NOTE | 2024-08-01 13:09 | ANE.PACU2 ---
Inpatient post-anesthesia follow up: Airway intact: Yes Vital signs: Temperature 98.1 F Pulse Rate 66 Respiratory Rate 18 Blood Pressure 132/74 Pulse Oximetry 98 Oxygen Delivery Me thod Room Air Oxygen Flow Rate Fraction of Inspir ed Oxygen Hydration adequate: Yes Nausea and vomiting: No Pain level: 1 Mental status: Baseline
== END 2024-07-31 20:29 | disposition home or self-care (01) ==
LOC: MEDSURG 16:48
PROVIDERS: Admitting Provider Student in an Organized Health Care Education/Training Program; PCP Nurse Practitioner Family; Visit Provider Student in an Organized Health Care Education/Training Program
PROC: (CPT 36590; 2024-07-31 14:00)
DX: C92.11 Chronic myeloid leukemia, BCR/ABL-positive, in remission (principal); K21.9 Gastro-esophageal reflux disease without esophagitis; Z87.11 Personal history of peptic ulcer disease; E03.9 Hypothyroidism, unspecified; M79.7 Fibromyalgia
CPT/HCPCS: 36590; 76000; 87070; 87176; 87205; G0378; J0690; J1171; J1644; J2250; J2704; J3010; J3490; J7030

== ENCOUNTER 2024-08-24 08:57 | Oncology outpatient (recurring) (ONCR) | payer MEDICAID, SELFPAY ==
[2024-08-24 09:37] LABS: Basophils # 0.1 10^3/uL (0.0-0.1); Basophils % 1.8 %; Eosinophils # 0.1 10^3/uL (0.0-0.8); Eosinophils % 2.3 %; Hematocrit 37.8 % (36-47); Lymphocytes # 1.5 10^3/uL (0.8-4.8); Lymphocytes % 39.7 %; Mean Corpuscular HGB Conc 31.5 g/dL (30-55); Mean Corpuscular Hemoglobin 29.3 pg (27-33); Mean Corpuscular Volume 93.1 fl (85-98); Mean Platelet Volume 10.4 fL (7.4-10.4); Monocytes # 0.2 10^3/uL (0.2-0.9); Monocytes % 5.9 %; Neutrophils # 1.94 10^3/uL (1.8-7.7); Nucleated Red Blood Cells % 0 %; Platelet Count 200 10^3/cmm (157-399); Red Blood Count 4.06 10^6/uL (3.85-5.65); Red Cell Distribution Width 14.9 % (12.1-15.1); White Blood Count 3.88 10^3/uL (3.29-11.43)
[2024-08-24 09:56] LABS: Alanine Aminotransferase 21 U/L (0-33); Albumin Level 4.3 g/dL (3.5-5.2); Alkaline Phosphatase 94 U/L (35-105); Anion Gap 11.8 (5-19); Aspartate Amino Transferase 21 U/L (0-32); Blood Urea Nitrogen 10 mg/dL (8-23); Calcium 9.3 mg/dL (8.5-10.5); Carbon Dioxide 27 mmol/L (22-29); Chloride 104 mmol/L (98-107); Creatinine Clr Calc Pharmacy 68.0597; Globulin 2.6 g/dL (1.3-4.6); Glomerular Filtration Rate 84.2 mL/min (90-130); Glucose 96 mg/dL (65-115); Lactate Dehydrogenase 175 U/L (135-214); Osmolality Calculated 287 mOsm/kg (285-295); Potassium 3.8 mmol/L (3.5-5.1); Sodium 139 mmol/L (136-145); Total Bilirubin 0.3 mg/dL (0.15-1.2); Total Protein 6.9 g/dL (6.6-8.7)
[2024-08-24] MEDS: cyanocobalamin 1,000 mcg/mL SDV 1000 MCG IM (11:59)
[2024-08-29 11:09] LABS: BCR ABL1 (IS) 0.007 (0.000); P210 BCR ALB1 DETECTED; P210 BCR ALB1 Yes Test Yes; Prior Results NG; Source blood
== END 2024-09-19 23:59 | disposition home or self-care (01) ==
PROVIDERS: Nurse Practitioner Family; PCP Nurse Practitioner Family; Visit Provider Internal Medicine Medical Oncology
DX: Z53.9 Procedure and treatment not carried out, unspecified reason; C92.11 Chronic myeloid leukemia, BCR/ABL-positive, in remission; Z79.899 Other long term (current) drug therapy; E53.8 Deficiency of other specified B group vitamins; G89.29 Other chronic pain; Z86.711 Personal history of pulmonary embolism
CPT/HCPCS: 36415; 80053; 81206; 83615; 85025; 96372; 99214; J3420

== ENCOUNTER 2024-10-26 12:02 | Oncology outpatient (recurring) (ONCR) | payer MEDICAID, SELFPAY ==
[2024-10-26 12:45] LABS: Basophils # 0.1 10^3/uL (0.0-0.1); Basophils % 1.5 %; Eosinophils # 0.1 10^3/uL (0.0-0.8); Eosinophils % 3.3 %; Hematocrit 35.5 % (36-47); Lymphocytes # 1.4 10^3/uL (0.8-4.8); Lymphocytes % 42.3 %; Mean Corpuscular HGB Conc 32.1 g/dL (30-55); Mean Corpuscular Hemoglobin 29.5 pg (27-33); Monocytes # 0.2 10^3/uL (0.2-0.9); Monocytes % 6.8 %; Neutrophils # 1.55 10^3/uL (1.8-7.7); Neutrophils % 46.1 %; Nucleated Red Blood Cells % 0 %; Platelet Count 186 10^3/cmm (157-399); Red Blood Count 3.86 10^6/uL (3.85-5.65); Red Cell Distribution Width 13.6 % (12.1-15.1); White Blood Count 3.36 10^3/uL (3.29-11.43)
[2024-10-26 13:07] LABS: Alanine Aminotransferase 7 U/L (0-33); Albumin Level 4.3 g/dL (3.5-5.2); Alkaline Phosphatase 74 U/L (35-105); Anion Gap 12.6 (5-19); Aspartate Amino Transferase 15 U/L (0-32); Blood Urea Nitrogen 8 mg/dL (8-23); Calcium 9.1 mg/dL (8.5-10.5); Carbon Dioxide 30 mmol/L (22-29); Chloride 101 mmol/L (98-107); Globulin 2.6 g/dL (1.3-4.6); Glomerular Filtration Rate 84.2 mL/min (90-130); Glucose 91 mg/dL (65-115); Lactate Dehydrogenase 155 U/L (135-214); Osmolality Calculated 286 mOsm/kg (285-295); Potassium 4.6 mmol/L (3.5-5.1); Sodium 139 mmol/L (136-145); Total Bilirubin 0.2 mg/dL (0.15-1.2); Total Protein 6.9 g/dL (6.6-8.7)
[2024-10-26] MEDS: cyanocobalamin 1,000 mcg/mL SDV 1000 MCG IM (14:33)
[2024-10-30 12:19] LABS: P210 BCR ALB1 DETECTED; P210 BCR ALB1 Yes Test Yes; Prior Results YES; Source Blood
== END 2024-11-17 23:59 | disposition home or self-care (01) ==
PROVIDERS: Nurse Practitioner Family; PCP Nurse Practitioner Family; Visit Provider Internal Medicine Medical Oncology
DX: C92.11 Chronic myeloid leukemia, BCR/ABL-positive, in remission (principal); Z79.899 Other long term (current) drug therapy; Z86.711 Personal history of pulmonary embolism; Z79.01 Long term (current) use of anticoagulants; E53.8 Deficiency of other specified B group vitamins; R07.9 Chest pain, unspecified; G89.29 Other chronic pain
CPT/HCPCS: 36415; 80053; 81206; 83615; 85025; 96372; 99213; J3420

== ENCOUNTER 2024-11-23 13:01 | Oncology outpatient (recurring) (ONCR) | payer MEDICAID, SELFPAY ==
[2024-11-23 13:40] VITALS: BP 124/78; PULSE 74; RESP 18; TEMP 36.6; O2SAT 98
[2024-11-23] MEDS: cyanocobalamin 1,000 mcg/mL SDV 1000 MCG IM (13:47)
[2024-11-23 13:50] VITALS: BP 107/71; PULSE 77; RESP 18; TEMP 37.1; O2SAT 99
== END 2024-12-18 23:59 | disposition home or self-care (01) ==
LOC: ONCMED 13:02
PROVIDERS: PCP Nurse Practitioner Family; Visit Provider Internal Medicine
DX: C92.11 Chronic myeloid leukemia, BCR/ABL-positive, in remission (principal); Z79.899 Other long term (current) drug therapy
CPT/HCPCS: 96372; J3420

== ENCOUNTER 2024-12-21 12:42 | Oncology outpatient (recurring) (ONCR) | payer MEDICAID, SELFPAY ==
[2024-12-21 13:40] LABS: Basophils % 0.5 %; Eosinophils # 0.1 10^3/uL (0.0-0.8); Eosinophils % 0.9 %; Hematocrit 35.4 % (36-47); Lymphocytes # 1.6 10^3/uL (0.8-4.8); Lymphocytes % 28.6 %; Mean Corpuscular HGB Conc 32.2 g/dL (30-55); Mean Corpuscular Hemoglobin 29.6 pg (27-33); Mean Corpuscular Volume 91.9 fl (85-98); Mean Platelet Volume 9.7 fL (7.4-10.4); Monocytes # 0.3 10^3/uL (0.2-0.9); Monocytes % 4.7 %; Neutrophils # 3.55 10^3/uL (1.8-7.7); Neutrophils % 64.9 %; Nucleated Red Blood Cells % 0 %; Platelet Count 210 10^3/cmm (157-399); Red Blood Count 3.85 10^6/uL (3.85-5.65); Red Cell Distribution Width 13.9 % (12.1-15.1); White Blood Count 5.48 10^3/uL (3.29-11.43)
[2024-12-21 13:57] LABS: Erythrocyte Sedimentation Rate < 1 mm/hr (0-15)
[2024-12-21 14:01] LABS: Alanine Aminotransferase 9 U/L (0-33); Albumin Level 4.2 g/dL (3.5-5.2); Alkaline Phosphatase 75 U/L (35-105); Anion Gap 13.6 (5-19); Aspartate Amino Transferase 15 U/L (0-32); Blood Urea Nitrogen 10 mg/dL (8-23); Calcium 8.8 mg/dL (8.5-10.5); Carbon Dioxide 25 mmol/L (22-29); Chloride 101 mmol/L (98-107); Creatinine Clr Calc Pharmacy 79.3856; Globulin 2.2 g/dL (1.3-4.6); Glomerular Filtration Rate 100.6 mL/min (90-130); Glucose 85 mg/dL (65-115); Lactate Dehydrogenase 145 U/L (135-214); Osmolality Calculated 278 mOsm/kg (285-295); Phosphorus 3.3 mg/dL (2.5-4.5); Potassium 4.6 mmol/L (3.5-5.1); Sodium 135 mmol/L (136-145); Total Bilirubin 0.2 mg/dL (0.15-1.2); Total Protein 6.4 g/dL (6.6-8.7); Uric Acid 2.8 mg/dL (2.4-5.7)
[2024-12-21] MEDS: cyanocobalamin 1,000 mcg/mL SDV 1000 MCG IM (14:50)
[2024-12-25 12:14] LABS: BCR ABL1 (IS) 0.016 (0.000); P210 BCR ALB1 DETECTED; P210 BCR ALB1 Yes Test Yes; Prior Results NG; Source blood
== END 2025-01-17 23:59 | disposition home or self-care (01) ==
PROVIDERS: PCP Nurse Practitioner Family; Visit Provider Internal Medicine
DX: C92.11 Chronic myeloid leukemia, BCR/ABL-positive, in remission (principal); E53.8 Deficiency of other specified B group vitamins; G89.29 Other chronic pain; Z79.899 Other long term (current) drug therapy; Z95.828 Presence of other vascular implants and grafts; Z86.711 Personal history of pulmonary embolism
CPT/HCPCS: 36591; 80053; 81206; 83010; 83615; 84100; 84550; 85025; 85045; 85651; 86140; 96372; 99213; J3420

== ENCOUNTER 2025-02-15 14:00 | Oncology outpatient (recurring) (ONCR) | payer MEDICAID, SELFPAY ==
[2025-01-18] MEDS: cyanocobalamin 1,000 mcg/mL SDV 1000 MCG IM (15:33)
[2025-02-15] MEDS: cyanocobalamin 1,000 mcg/mL SDV 1000 MCG IM (14:56)
== END 2025-02-17 23:59 | disposition home or self-care (01) ==
PROVIDERS: PCP Nurse Practitioner Family; Visit Provider Internal Medicine
DX: Z53.9 Procedure and treatment not carried out, unspecified reason (principal); C92.11 Chronic myeloid leukemia, BCR/ABL-positive, in remission; Z79.899 Other long term (current) drug therapy; Z95.828 Presence of other vascular implants and grafts; Z45.2 Encounter for adjustment and management of vascular access device
CPT/HCPCS: 96372; 96523; J3420

== ENCOUNTER 2025-03-15 12:21 | Oncology outpatient (recurring) (ONCR) | payer MEDICAID, SELFPAY ==
[2025-03-15 12:56] LABS: Basophils % 0.7 %; Eosinophils # 0.1 10^3/uL (0.0-0.8); Eosinophils % 1.1 %; Hematocrit 35.2 % (36-47); Lymphocytes # 1.6 10^3/uL (0.8-4.8); Lymphocytes % 27.8 %; Mean Corpuscular HGB Conc 32.4 g/dL (30-55); Mean Corpuscular Hemoglobin 29.7 pg (27-33); Mean Corpuscular Volume 91.7 fl (85-98); Mean Platelet Volume 9.7 fL (7.4-10.4); Monocytes # 0.3 10^3/uL (0.2-0.9); Monocytes % 4.7 %; Neutrophils % 64.6 %; Nucleated Red Blood Cells % 0 %; Platelet Count 200 10^3/cmm (157-399); Red Blood Count 3.84 10^6/uL (3.85-5.65); Red Cell Distribution Width 13.2 % (12.1-15.1); Reticulocyte % 0.9 % (0.5-2.0); White Blood Count 5.57 10^3/uL (3.29-11.43)
[2025-03-15 13:11] LABS: Alanine Aminotransferase 10 U/L (0-33); Alkaline Phosphatase 79 U/L (35-105); Anion Gap 13.1 (5-19); Aspartate Amino Transferase 17 U/L (0-32); Blood Urea Nitrogen 10 mg/dL (8-23); Calcium 9.2 mg/dL (8.5-10.5); Carbon Dioxide 27 mmol/L (22-29); Chloride 101 mmol/L (98-107); Globulin 2.6 g/dL (1.3-4.6); Glucose 88 mg/dL (65-115); Lactate Dehydrogenase 141 U/L (135-214); Osmolality Calculated 282 mOsm/kg (285-295); Potassium 4.1 mmol/L (3.5-5.1); Sodium 137 mmol/L (136-145); Total Bilirubin 0.2 mg/dL (0.15-1.2); Total Protein 6.6 g/dL (6.6-8.7)
[2025-03-15 14:25] LABS: Ferritin 66 ng/mL (15-150); Iron 132 ug/dL (37-145); Percent Saturation 51.7 % (20-50); Total Iron Binding Capacity 255 mcg/dl; Unsaturated Iron Binding 123 ug/dL (112-347)
[2025-03-15] MEDS: cyanocobalamin 1,000 mcg/mL SDV 1000 MCG IM (14:27)
[2025-03-15 14:31] LABS: Folate Level > 20.0 ng/mL (4.8-37.3)
[2025-03-15 14:41] LABS: Vitamin B12 760 pg/mL (232-1245)
[2025-03-16 12:23] LABS: Leukemia Profile (BBPL) See Report
[2025-03-20 21:45] LABS: BCR ABL1 (IS) 0.004 (0.000); P210 BCR ALB1 DETECTED; P210 BCR ALB1 Yes Test Yes; Prior Results NG; Source blood
== END 2025-03-19 23:59 | disposition home or self-care (01) ==
PROVIDERS: PCP Nurse Practitioner Family; Visit Provider Internal Medicine
DX: C92.11 Chronic myeloid leukemia, BCR/ABL-positive, in remission (principal); Z79.899 Other long term (current) drug therapy; Z86.711 Personal history of pulmonary embolism; Z95.828 Presence of other vascular implants and grafts; E53.8 Deficiency of other specified B group vitamins; G89.29 Other chronic pain
CPT/HCPCS: 80053; 81206; 82607; 82728; 82746; 83010; 83540; 83550; 83615; 84100; 85025; 85045; 88184; 88185; 96372; 99214; J3420

== ENCOUNTER 2025-04-12 11:15 | Oncology outpatient (recurring) (ONCR) | payer MEDICARE, MEDICAID, SELFPAY ==
[2025-04-12 12:03] LABS: Hematocrit 32.1 % (36-47); Hemoglobin 10.40 g/dL (11.27-16.99); Mean Corpuscular HGB Conc 32.4 g/dL (30-55); Mean Corpuscular Hemoglobin 29.7 pg (27-33); Mean Corpuscular Volume 91.7 fl (85-98); Nucleated Red Blood Cells % 0 %; Platelet Count 189 10^3/cmm (157-399); Red Blood Count 3.50 10^6/uL (3.85-5.65); White Blood Count 3.69 10^3/uL (3.29-11.43)
[2025-04-12 12:19] LABS: Alanine Aminotransferase 9 U/L (0-33); Albumin Level 4.2 g/dL (3.5-5.2); Alkaline Phosphatase 83 U/L (35-105); Anion Gap 14.1 (5-19); Aspartate Amino Transferase 16 U/L (0-32); Blood Urea Nitrogen 7 mg/dL (8-23); Calcium 8.8 mg/dL (8.5-10.5); Carbon Dioxide 25 mmol/L (22-29); Chloride 101 mmol/L (98-107); Globulin 2.3 g/dL (1.3-4.6); Glucose 88 mg/dL (65-115); Osmolality Calculated 279 mOsm/kg (285-295); Potassium 4.1 mmol/L (3.5-5.1); Sodium 136 mmol/L (136-145); Total Protein 6.5 g/dL (6.6-8.7)
[2025-04-12] MEDS: ondansetron 2 mg/ML SDV 2 mL 8 MG IVP (14:04)
[2025-04-12 15:07] LABS: Glucose Urine UA Negative (Normal); Nitrate Urine Negative (Negative); Specific Gravity, Urine 1.015 (1.005-1.030)
[2025-04-12 15:13] LABS: Add Urine Microscopic? YES
[2025-04-12 15:17] VITALS: BP 118/75; PULSE 66; RESP 17; TEMP 36.6; O2SAT 97
[2025-04-12] MEDS: cyanocobalamin 1,000 mcg/mL SDV 1000 MCG IM (15:19)
[2025-04-12 15:22] LABS: Magnesium 2.2 mg/dL (1.7-2.3)
[2025-04-18 17:45] LABS: BCR ABL1 (IS) 0.007 (0.000); P210 BCR ALB1 DETECTED; P210 BCR ALB1 Yes Test Yes; Source blood
[2025-04-18 21:34] LABS: RMSF IGG NOT DETECTED; RMSF IGM NOT DETECTED
== END 2025-04-19 23:59 | disposition home or self-care (01) ==
PROVIDERS: Internal Medicine; Nurse Practitioner; PCP Nurse Practitioner Family; Visit Provider Internal Medicine
DX: C92.11 Chronic myeloid leukemia, BCR/ABL-positive, in remission (principal); Z79.899 Other long term (current) drug therapy; M25.50 Pain in unspecified joint; M79.10 Myalgia, unspecified site; R53.81 Other malaise; R53.83 Other fatigue
CPT/HCPCS: 80053; 81001; 81206; 82085; 82306; 82550; 83735; 85025; 85651; 86140; 86200; 86431; 86618; 86666; 86757; 96360; 96367; 96372; 96375; 99215; J1100; J2405; J3420; J3490; J7030

== ENCOUNTER 2025-05-10 09:23 | Oncology outpatient (recurring) (ONCR) | payer MEDICARE, MEDICAID, SELFPAY ==
[2025-05-10 10:01] LABS: Hematocrit 32.3 % (36-47); Hemoglobin 10.70 g/dL (11.27-16.99); Mean Corpuscular HGB Conc 33.1 g/dL (30-55); Mean Corpuscular Hemoglobin 29.9 pg (27-33); Mean Corpuscular Volume 90.2 fl (85-98); Nucleated Red Blood Cells % 0 %; Platelet Count 198 10^3/cmm (157-399); Red Blood Count 3.58 10^6/uL (3.85-5.65); White Blood Count 4.17 10^3/uL (3.29-11.43)
[2025-05-10 10:32] LABS: Alanine Aminotransferase 7 U/L (0-33); Albumin Level 4.2 g/dL (3.5-5.2); Alkaline Phosphatase 79 U/L (35-105); Anion Gap 13.5 (5-19); Aspartate Amino Transferase 14 U/L (0-32); Blood Urea Nitrogen 10 mg/dL (8-23); Calcium 8.8 mg/dL (8.5-10.5); Carbon Dioxide 26 mmol/L (22-29); Chloride 104 mmol/L (98-107); Creatinine Clr Calc Pharmacy 59.8980; Globulin 2.3 g/dL (1.3-4.6); Glucose 122 mg/dL (65-115); Magnesium 2.1 mg/dL (1.7-2.3); Osmolality Calculated 290 mOsm/kg (285-295); Potassium 3.5 mmol/L (3.5-5.1); Sodium 140 mmol/L (136-145); Total Protein 6.5 g/dL (6.6-8.7); Uric Acid 2.8 mg/dL (2.4-5.7)
[2025-05-10 10:47] LABS: Vitamin B12 724 pg/mL (232-1245)
[2025-05-10] MEDS: cyanocobalamin 1,000 mcg/mL SDV 1000 MCG IM (10:51)
[2025-05-15 20:14] LABS: BCR ABL1 (IS) 0.003 (0.000); P210 BCR ALB1 DETECTED; P210 BCR ALB1 Yes Test Yes; Source blood
== END 2025-05-20 23:59 | disposition home or self-care (01) ==
PROVIDERS: PCP Nurse Practitioner Family; Visit Provider Internal Medicine
DX: C92.11 Chronic myeloid leukemia, BCR/ABL-positive, in remission (principal); E53.8 Deficiency of other specified B group vitamins; G89.29 Other chronic pain; E55.9 Vitamin D deficiency, unspecified; Z79.899 Other long term (current) drug therapy; Z86.711 Personal history of pulmonary embolism; Z79.01 Long term (current) use of anticoagulants; Z95.828 Presence of other vascular implants and grafts; Z79.891 Long term (current) use of opiate analgesic
CPT/HCPCS: 11102; 36591; 80053; 81206; 82607; 83010; 83615; 83735; 84100; 84550; 85025; 85651; 86140; 96402; 99203; 99213; J3420

== ENCOUNTER 2025-06-07 10:35 | Oncology outpatient (recurring) (ONCR) | payer MEDICARE, MEDICAID, SELFPAY ==
[2025-06-07] MEDS: cyanocobalamin 1,000 mcg/mL SDV 1000 MCG IM (11:47)
== END 2025-06-19 23:59 | disposition home or self-care (01) ==
LOC: ONCMED 10:36
PROVIDERS: PCP Nurse Practitioner Family; Visit Provider Internal Medicine
DX: C92.11 Chronic myeloid leukemia, BCR/ABL-positive, in remission (principal); Z79.899 Other long term (current) drug therapy
CPT/HCPCS: 96372; J3420

== ENCOUNTER 2025-07-05 10:52 | Oncology outpatient (recurring) (ONCR) | payer MEDICARE, MEDICAID, SELFPAY ==
[2025-07-05 11:11] LABS: Hematocrit 33.4 % (36-47); Hemoglobin 10.90 g/dL (11.27-16.99); Mean Corpuscular HGB Conc 32.6 g/dL (30-55); Mean Corpuscular Hemoglobin 29.4 pg (27-33); Mean Corpuscular Volume 90.0 fl (85-98); Nucleated Red Blood Cells % 0 %; Platelet Count 182 10^3/cmm (157-399); Red Blood Count 3.71 10^6/uL (3.85-5.65); White Blood Count 3.44 10^3/uL (3.29-11.43)
[2025-07-05 11:28] LABS: Estmated Average Glucose 111; Hemoglobin A1C 5.5 % (4.0-6.0)
[2025-07-05 11:46] LABS: Alanine Aminotransferase 12 U/L (0-33); Albumin Level 4.1 g/dL (3.5-5.2); Alkaline Phosphatase 65 U/L (35-105); Anion Gap 14.0 (5-19); Aspartate Amino Transferase 15 U/L (0-32); Blood Urea Nitrogen 7 mg/dL (8-23); Calcium 8.8 mg/dL (8.5-10.5); Carbon Dioxide 26 mmol/L (22-29); Chloride 104 mmol/L (98-107); Cholesterol 226 mg/dL (0-200); Creatinine Clr Calc Pharmacy 58.3543; Ferritin 95 ng/mL (15-150); Globulin 2.3 g/dL (1.3-4.6); Glucose 91 mg/dL (65-115); HDL Cholesterol 61 mg/dL (60-100); Iron 72 ug/dL (37-145); Magnesium 2.1 mg/dL (1.7-2.3); Osmolality Calculated 288 mOsm/kg (285-295); Potassium 4.0 mmol/L (3.5-5.1); Sodium 140 mmol/L (136-145); Thyroid Stimulating Hormone 1.19 uIU/mL (0.27-4.20); Total Iron Binding Capacity 224 mcg/dl; Total Protein 6.4 g/dL (6.6-8.7); Triglycerides 107 mg/dL (0-150); Unsaturated Iron Binding 152 ug/dL (112-347); Vitamin B12 747 pg/mL (232-1245)
[2025-07-05] MEDS: cyanocobalamin 1,000 mcg/mL SDV 1000 MCG IM (13:18)
[2025-07-10 21:30] LABS: BCR ABL1 (IS) 0.006 (0.000); P210 BCR ALB1 DETECTED; P210 BCR ALB1 Yes Test Yes; Source blood
== END 2025-07-20 23:59 | disposition home or self-care (01) ==
PROVIDERS: PCP Nurse Practitioner Family; Visit Provider Internal Medicine
DX: C92.11 Chronic myeloid leukemia, BCR/ABL-positive, in remission (principal); E53.8 Deficiency of other specified B group vitamins; G89.29 Other chronic pain; Z79.899 Other long term (current) drug therapy; Z95.828 Presence of other vascular implants and grafts; Z86.711 Personal history of pulmonary embolism; Z79.891 Long term (current) use of opiate analgesic
CPT/HCPCS: 36591; 80053; 80061; 81206; 82607; 82728; 83036; 83540; 83550; 83615; 83735; 84100; 84443; 85025; 96372; 99213; J3420

== ENCOUNTER 2025-08-02 10:48 | Oncology outpatient (recurring) (ONCR) | payer MEDICARE, MEDICAID, SELFPAY ==
[2025-08-02] MEDS: cyanocobalamin 1,000 mcg/mL SDV 1000 MCG IM (10:59)
== END 2025-08-19 23:59 | disposition home or self-care (01) ==
LOC: ONCMED 10:48
PROVIDERS: PCP Nurse Practitioner Family; Visit Provider Internal Medicine
DX: C92.11 Chronic myeloid leukemia, BCR/ABL-positive, in remission (principal); Z79.899 Other long term (current) drug therapy
CPT/HCPCS: 96372; J3420

== ENCOUNTER 2025-08-30 10:58 | Oncology outpatient (recurring) (ONCR) | payer MEDICARE, MEDICAID, SELFPAY ==
[2025-08-30] MEDS: cyanocobalamin 1,000 mcg/mL SDV 1000 MCG IM (11:50)
== END 2025-09-19 23:59 | disposition home or self-care (01) ==
PROVIDERS: PCP Nurse Practitioner Family; Visit Provider Internal Medicine
DX: E53.8 Deficiency of other specified B group vitamins (principal); Z79.899 Other long term (current) drug therapy; Z95.828 Presence of other vascular implants and grafts
CPT/HCPCS: 96372; 96523; J3420